=== PATIENT | male | born 1960 | race Caucasian/White ===

== ENCOUNTER 2016-11-26 16:03 | Emergency (ER) | payer BC, OTHER ==
[2016-11-26 16:20] VITALS: BP 161/67; PULSE 67; RESP 20; TEMP 98.3
== END 2016-11-26 16:50 | disposition home or self-care (01) ==
LOC: EC 16:03
DX: Z02.89 Encounter for other administrative examinations (principal)
CPT/HCPCS: 99281

== ENCOUNTER 2016-11-27 21:13 | Emergency (ER) | payer BC ==
--- NOTE | 2016-11-27 21:32 | ED ---
Psych HPI - General Chief Complaint: Psychiatric Symptoms Stated Complaint: suicidal Time Seen by Provider: 11/27/16 21:20 Source: patient, EMS Mode of arrival: EMS - History of Present Illness Initial Comments: This patient is a 56-year-old man who presents to be evaluated for suicidal ideation. The patient states that he has a previous history of alcoholism but had not been drinking for about 18 months. Over the past approximately 2-3 days she has been drinking 3/2 pints of alcohol per day. The patient states that his house was foreclosed on Sunday and that this triggered his drinking. He is more and more depressed and having thoughts of ending his life. The patient denies previous psychiatric history. She does have history of pancreatitis but states he has not been vomiting and has no abdominal pain. MD Complaint: suicidal ideation, feels depressed -: days(s) Associated Psychiatric Symptoms: depression, suicidal ideation Quality: getting worse Worsens With: alcohol Context: significant life stressor Associated Symptoms: denies other symptoms If Self Harm: admits thoughts of self harm - Related Data Home Medications Medication Instructions Recorded Confirmed Aspirin 81 mg PO DAILY 09/12/15 11/27/16 Hydrochlorothiazide [Hydrodiuril] 25 mg PO DAILY 09/12/15 11/27/16 Lisinopril [Zestril] 20 mg PO DAILY 09/12/15 11/27/16 Multivitamin/Iron/Folic Acid 1 tab PO DAILY 09/12/15 11/27/16 [Centrum Complete Multivit Tab] Atorvastatin [Lipitor] 20 mg PO DAILY 11/27/16 11/27/16 Pioglitazone HCl [Actos] 30 mg PO DAILY 11/27/16 11/27/16 metFORMIN HCL ER [Glucophage Xr] 1,000 mg PO BID 11/27/16 11/27/16 Allergies Allergy/AdvReac Type Severity Reaction Status Date / Time insulin detemir Allergy Anaphylaxis Verified 11/27/16 22:34 [From Levemir] Review of Systems ROS Statement: Those systems with pertinent positive or pertinent negative responses have been documented in the HPI. ROS Other: All systems not noted in ROS Statement are negative. Constitutional: Denies: fever, chills Respiratory: Denies: cough, dyspnea Cardiovascular: Denies: chest pain, palpitations Gastrointestinal: Denies: abdominal pain, nausea, vomiting Musculoskeletal: Denies: back pain Neurological: Denies: headache, weakness, numbness Psychiatric: Reports: depression, suicidal thoughts. Denies: auditory hallucinations, visual hallucinations, homicidal thoughts Past Medical History Past Medical History: Diabetes Mellitus, Hyperlipidemia, Hypertension Additional Past Medical History / Comment(s): kidney stones History of Any Multi-Drug Resistant Organisms: None Reported Past Surgical History: Cholecystectomy, Orthopedic Surgery Additional Past Surgical History / Comment(s): RIGHT KNEE REPLACED x3, LEFT ROTATOR CUFF, Past Anesthesia/Blood Transfusion Reactions: No Reported Reaction Past Psychological History: ADD/ADHD, Depression Additional Psychological History / Comment(s): ADHD Smoking Status: Current every day smoker Past Alcohol Use History: Daily Past Drug Use History: None Reported - Past Family History Father Family Medical History: Diabetes Mellitus Additional Family Medical History / Comment(s): CABG Mother Family Medical History: Diabetes Mellitus General Exam Limitations: no limitations General appearance: alert, in no apparent distress, appears intoxicated Head exam: Present: atraumatic, normocephalic Eye exam: Present: normal appearance. Absent: scleral icterus, conjunctival injection Respiratory exam: Present: wheezes (Trace expiratory wheeze). Absent: respiratory distress, rales, rhonchi, stridor, accessory muscle use, decreased breath sounds, prolonged expiratory Cardiovascular Exam: Present: regular rate, normal rhythm, normal heart sounds. Absent: systolic murmur, diastolic murmur, rubs, gallop GI/Abdominal exam: Present: soft. Absent: distended, tenderness, guarding, rebound, mass Extremities exam: Present: normal inspection Back exam: Present: normal inspection. Absent: CVA tenderness (R), CVA tenderness (L) Psychiatric exam: Present: depressed, suicidal ideation. Absent: agitated, anxious, flat affect, manic, homicidal ideation Skin exam: Present: warm, dry, intact, normal color. Absent: rash Course Vital Signs 11/27/16 11/28/16 21:14 01:01 Temperature 98 F 97.6 F Pulse Rate 111 H 85 Respiratory 16 18 Rate Blood Pressure 167/111 146/80 O2 Sat by Pulse 95 95 Oximetry Medical Decision Making - Medical Decision Making I have reassessed the patient now that he is sober and he is feeling much better than he was earlier. He does contract for safety. Patient has been evaluated by the behavioral health service and they have also discussed the case with the patient's ex-girlfriend who is going to also be checking on the patient. He is given outpatient resources for further care. He will definitely return should he be feeling any worse or if any symptoms recur. We discussed abstaining from alcohol. - Lab Data Lab Results 11/27/16 Range/Units 21:36 Urine Opiates Screen Not Detected (NotDetected) Ur Oxycodone Screen Not Detected (NotDetected) Urine Methadone Screen Not Detected (NotDetected) Ur Propoxyphene Screen Not Detected (NotDetected) Ur Barbiturates Screen Not Detected (NotDetected) U Tricyclic Antidepress Not Detected (NotDetected) Ur Phencyclidine Scrn Not Detected (NotDetected) Ur Amphetamines Screen Not Detected (NotDetected) U Methamphetamines Scrn Not Detected (NotDetected) U Benzodiazepines Scrn Not Detected (NotDetected) Urine Cocaine Screen Not Detected (NotDetected) U Marijuana (THC) Screen Not Detected (NotDetected) Disposition Clinical Impression: Alcohol intoxication, Adjustment reaction Disposition: HOME SELF-CARE Condition: Good Instructions: Mood Disorders (ED) Referrals: Ruel Christian MD [Primary Care Provider] - 1-2 days
[2016-11-27] MEDS ORDERED: LORazepam 1 MG TAB PO STA (21:35)
[2016-11-28 01:02] VITALS: RESP 18
[2016-11-28 08:08] VITALS: BP 137/77; PULSE 89; TEMP 97.9
== END 2016-11-28 08:07 | disposition home or self-care (01) ==
LOC: EC 21:13
DX: F43.20 Adjustment disorder, unspecified (principal); F10.129 Alcohol abuse with intoxication, unspecified; E11.9 Type 2 diabetes mellitus without complications; E78.5 Hyperlipidemia, unspecified; I10 Essential (primary) hypertension; Z79.84 Long term (current) use of oral hypoglycemic drugs; Z79.82 Long term (current) use of aspirin; Z79.899 Other long term (current) drug therapy; Z88.8 Allergy status to other drugs, medicaments and biological substances
CPT/HCPCS: 80306; 82075; 99284

== ENCOUNTER 2018-01-02 15:51 | Emergency (ER) | payer BC, OTHER ==
[2018-01-02] MEDS ORDERED: LABETALOL 5 MG/ML VIAL MDV IVP STA (17:06)
[2018-01-02] MEDS ORDERED: SODIUM CHLORIDE 0.9% 500 ML IV STA (17:06)
[2018-01-02] MEDS ORDERED: SODIUM CHLORIDE 0.9% 1,000 ML IV STA ×3 (17:06→18:26)
[2018-01-02 17:23] LABS: Basophils % (A) 0 %; Eosinophils # (A) 0.1 k/uL (0-0.7); Eosinophils % (A) 1 %; HCT 43.9 % (39.0-53.0); HGB 14.7 gm/dL (13.0-17.5); Lymphocytes # (A) 1.4 k/uL (1.0-4.8); Lymphocytes % (A) 19 %; MCH 31.6 pg (25.0-35.0); MCHC 33.6 g/dL (31.0-37.0); Mean Platelet Volume 7.7; Monocytes # (A) 0.5 k/uL (0-1.0); Monocytes % (A) 7 %; Neutrophils # (A) 5.4 k/uL (1.3-7.7); Neutrophils % (A) 72 %; Platelet Count 156 k/uL (150-450); RBC 4.67 m/uL (4.30-5.90); RDW 12.6 % (11.5-15.5); WBC 7.5 k/uL (3.8-10.6)
[2018-01-02 17:33] LABS: INR 1.1 (<1.2); Partial Thromboplastin Time 23.2 sec (22.0-30.0); Prothrombin Time 10.5 sec (9.0-12.0)
[2018-01-02 17:35] LABS: ALT 41 U/L (21-72); AST 48 U/L (17-59); Albumin 4.4 g/dL (3.5-5.0); Alkaline Phosphatase 39 U/L (38-126); Anion Gap 19 mmol/L; Blood Urea Nitrogen 21 mg/dL (9-20); Calcium 9.4 mg/dL (8.4-10.2); Carbon Dioxide 19 mmol/L (22-30); Chloride 102 mmol/L (98-107); Glucose 189 mg/dL (74-99); Magnesium 1.4 mg/dL (1.6-2.3); Phosphorus 3.6 mg/dL (2.5-4.5); Potassium 3.9 mmol/L (3.5-5.1); Sodium 140 mmol/L (137-145); Total Bilirubin 1.1 mg/dL (0.2-1.3); Total Protein 6.9 g/dL (6.3-8.2)
[2018-01-02 17:50] LABS: Creatine Kinase 429 U/L (55-170)
[2018-01-02 17:53] LABS: Alcohol 85 mg/dL
--- NOTE | 2018-01-02 17:56 | ED ---
General Adult HPI - General Chief complaint: Recheck/Abnormal Lab/Rx Stated complaint: High blood pressure Time Seen by Provider: 01/02/18 16:16 Source: patient, RN notes reviewed, old records reviewed Mode of arrival: ambulatory Limitations: no limitations - History of Present Illness Initial comments: This is a 57-year-old male to the ER for evaluation. This patient presents ER today for evaluation regarding elevated blood pressure elevated heart rate. Patient states he had prior issues in the past up-to-date medications secondary lost insurance. He denies any significant complaint, patient was transferred from [facility] Home Medications Medication Instructions Recorded Confirmed No Known Home Medications [No 01/02/18 01/02/18 Known Home Medications] Allergies Allergy/AdvReac Type Severity Reaction Status Date / Time insulin detemir Allergy Anaphylaxis Verified 01/02/18 16:28 [From [facility]] Review of Systems ROS Statement: Those systems with pertinent positive or pertinent negative responses have been documented in the HPI. ROS Other: All systems not noted in ROS Statement are negative. Past Medical History Past Medical History: Diabetes Mellitus, Hyperlipidemia, Hypertension Additional Past Medical History / Comment(s): kidney stones History of Any Multi-Drug Resistant Organisms: None Reported Past Surgical History: Cholecystectomy, Orthopedic Surgery Additional Past Surgical History / Comment(s): RIGHT KNEE REPLACED x3, LEFT ROTATOR CUFF, Past Anesthesia/Blood Transfusion Reactions: No Reported Reaction Past Psychological History: ADD/ADHD, Depression Smoking Status: Current every day smoker Past Alcohol Use History: Daily, Heavy Past Drug Use History: None Reported - Past Family History Father Family Medical History: Diabetes Mellitus Additional Family Medical History / Comment(s): CABG Mother Family Medical History: Diabetes Mellitus General Exam Limitations: no limitations General appearance: alert, in no apparent distress, anxious Head exam: Present: atraumatic, normocephalic, normal inspection Eye exam: Present: normal appearance, PERRL, EOMI. Absent: scleral icterus, conjunctival injection, periorbital swelling ENT exam: Present: normal exam, mucous membranes moist Neck exam: Present: normal inspection. Absent: tenderness, meningismus, lymphadenopathy Respiratory exam: Present: normal lung sounds bilaterally. Absent: respiratory distress, wheezes, rales, rhonchi, stridor Cardiovascular Exam: Present: tachycardia, irregular rhythm, normal heart sounds. Absent: systolic murmur, diastolic murmur, rubs, gallop, clicks GI/Abdominal exam: Present: soft, normal bowel sounds. Absent: distended, tenderness, guarding, rebound, rigid Extremities exam: Present: normal inspection, full ROM, normal capillary refill. Absent: tenderness, pedal edema, joint swelling, calf tenderness Back exam: Present: normal inspection Neurological exam: Present: alert, oriented X3, CN II-XII intact Psychiatric exam: Present: normal affect, normal mood Skin exam: Present: warm, dry, intact, normal color. Absent: rash Course Vital Signs 01/02/18 01/02/18 01/02/18 15:53 16:18 17:02 Temperature 99.6 F Pulse Rate 139 H 102 H 103 H Respiratory 22 18 18 Rate Blood Pressure 223/133 182/121 172/103 O2 Sat by Pulse 98 97 98 Oximetry 01/02/18 01/02/18 01/02/18 17:21 17:46 18:36 Temperature Pulse Rate 93 87 86 Respiratory 18 18 18 Rate Blood Pressure 166/100 160/100 176/106 O2 Sat by Pulse 98 98 97 Oximetry 01/02/18 19:07 Temperature 98.2 F Pulse Rate 85 Respiratory 16 Rate Blood Pressure 178/113 O2 Sat by Pulse 97 Oximetry - Reevaluation(s) Reevaluation #1: 01/02/18 19:10 Blood pressures improved, patient encouraged increased diet increase fluid intake EKG Findings - EKG Comments: EKG Findings:: EKG shows sinus tachycardia rate 128, IL 150, QRS 98, QTc 446 Medical Decision Making - Medical Decision Making 57 male the ER for evaluation, patient to be discharged home on blood pressure control, encouraged increased diet increased fluid intake - Lab Data Result diagrams: 01/02/18 16:46 01/02/18 16:46 Lab Results 01/02/18 01/02/18 01/02/18 Range/Units 16:46 16:46 16:46 WBC 7.5 (3.8-10.6) k/uL RBC 4.67 (4.30-5.90) m/uL Hgb 14.7 (13.0-17.5) gm/dL Hct 43.9 (39.0-53.0) % MCV 94.0 (80.0-100.0) fL MCH 31.6 (25.0-35.0) pg MCHC 33.6 (31.0-37.0) g/dL RDW 12.6 (11.5-15.5) % Plt Count 156 (150-450) k/uL Neutrophils % 72 % Lymphocytes % 19 % Monocytes % 7 % Eosinophils % 1 % Basophils % 0 % Neutrophils # 5.4 (1.3-7.7) k/uL Lymphocytes # 1.4 (1.0-4.8) k/uL Monocytes # 0.5 (0-1.0) k/uL Eosinophils # 0.1 (0-0.7) k/uL Basophils # 0.0 (0-0.2) k/uL PT (9.0-12.0) sec INR (<1.2) APTT (22.0-30.0) sec Sodium 140 (137-145) mmol/L Potassium 3.9 (3.5-5.1) mmol/L Chloride 102 (98-107) mmol/L Carbon Dioxide 19 L (22-30) mmol/L Anion Gap 19 mmol/L BUN 21 H (9-20) mg/dL Creatinine 0.80 (0.66-1.25) mg/dL Est GFR (CKD-EPI)AfAm >90 (>60 ml/min/1.73 sqM) Est GFR (CKD-EPI)NonAf >90 (>60 ml/min/1.73 sqM) Glucose 189 H (74-99) mg/dL Calcium 9.4 (8.4-10.2) mg/dL Phosphorus 3.6 (2.5-4.5) mg/dL Magnesium 1.4 L (1.6-2.3) mg/dL Total Bilirubin 1.1 (0.2-1.3) mg/dL AST 48 (17-59) U/L ALT 41 (21-72) U/L Alkaline Phosphatase 39 (38-126) U/L Total Creatine Kinase 429 H (55-170) U/L CK-MB (CK-2) 5.3 H* (0.0-2.4) ng/mL CK-MB (CK-2) Rel Index 1.2 Troponin I <0.012 (0.000-0.034) ng/mL Total Protein 6.9 (6.3-8.2) g/dL Albumin 4.4 (3.5-5.0) g/dL TSH 1.510 (0.465-4.680) mIU/L Serum Alcohol 85 mg/dL 01/02/18 Range/Units 16:46 WBC (3.8-10.6) k/uL RBC (4.30-5.90) m/uL Hgb (13.0-17.5) gm/dL Hct (39.0-53.0) % MCV (80.0-100.0) fL MCH (25.0-35.0) pg MCHC (31.0-37.0) g/dL RDW (11.5-15.5) % Plt Count (150-450) k/uL Neutrophils % % Lymphocytes % % Monocytes % % Eosinophils % % Basophils % % Neutrophils # (1.3-7.7) k/uL Lymphocytes # (1.0-4.8) k/uL Monocytes # (0-1.0) k/uL Eosinophils # (0-0.7) k/uL Basophils # (0-0.2) k/uL PT 10.5 (9.0-12.0) sec INR 1.1 (<1.2) APTT 23.2 (22.0-30.0) sec Sodium (137-145) mmol/L Potassium (3.5-5.1) mmol/L Chloride (98-107) mmol/L Carbon Dioxide (22-30) mmol/L Anion Gap mmol/L BUN (9-20) mg/dL Creatinine (0.66-1.25) mg/dL Est GFR (CKD-EPI)AfAm (>60 ml/min/1.73 sqM) Est GFR (CKD-EPI)NonAf (>60 ml/min/1.73 sqM) Glucose (74-99) mg/dL Calcium (8.4-10.2) mg/dL Phosphorus (2.5-4.5) mg/dL Magnesium (1.6-2.3) mg/dL Total Bilirubin (0.2-1.3) mg/dL AST (17-59) U/L ALT (21-72) U/L Alkaline Phosphatase (38-126) U/L Total Creatine Kinase (55-170) U/L CK-MB (CK-2) (0.0-2.4) ng/mL CK-MB (CK-2) Rel Index Troponin I (0.000-0.034) ng/mL Total Protein (6.3-8.2) g/dL Albumin (3.5-5.0) g/dL TSH (0.465-4.680) mIU/L Serum Alcohol mg/dL Disposition Clinical Impression: Hypertension Disposition: HOME SELF-CARE Condition: Good Instructions: Hypertension (ED) Is patient prescribed a controlled substance at d/c from ED?: No Referrals: None,Stated [Primary Care Provider] - 1-2 days
[2018-01-02 18:03] LABS: Troponin I <0.012 ng/mL (0.000-0.034)
[2018-01-02 18:06] LABS: Creatine Kinase MB 5.3 ng/mL (0.0-2.4)
[2018-01-02] MEDS ORDERED: MAGNESIUM OXIDE 400 MG TAB PO STA (18:25)
[2018-01-02 19:09] VITALS: RESP 16; TEMP 98.2
[2018-01-02 19:35] LABS: Appearance,Urine Clear (Clear); Bilirubin,Urine Negative (Negative); Blood,Urine Negative (Negative); Color,Urine Yellow; Glucose,Urine (UA) Trace (Negative); Ketones,Urine 1+ (Negative); Leukocyte Esterase,Urine Negative (Negative); Nitrite,Urine Negative (Negative); Protein,Urine Trace (Negative); Specific Gravity,Urine 1.021 (1.001-1.035); Urobilinogen,Urine <2.0 mg/dL (<2.0)
[2018-01-02 19:47] VITALS: BP 174/111; PULSE 87
== END 2018-01-02 19:54 | disposition home or self-care (01) ==
LOC: EC 15:51
DX: I10 Essential (primary) hypertension (principal); F17.200 Nicotine dependence, unspecified, uncomplicated; Z88.8 Allergy status to other drugs, medicaments and biological substances
CPT/HCPCS: 36415; 80053; 80320; 81003; 82550; 82553; 83735; 84100; 84443; 84484; 85025; 85610; 85730; 87086; 93005; 96361; 96374; 99284

== ENCOUNTER 2019-07-19 11:56 | Inpatient (IN) | payer OTHER ==
[2019-07-19] MEDS ORDERED: ASPIRIN 81 MG PO STA (12:11)
[2019-07-19] MEDS ORDERED: ATORVASTATIN 80 MG TAB PO STA (12:20)
[2019-07-19] MEDS ORDERED: NITROGLYCERIN SL TABS 0.4 MG TAB SUBLINGUAL STA (12:20)
--- NOTE | 2019-07-19 12:24 | ED ---
General Adult HPI - General Chief complaint: Chest Pain Stated complaint: intermittent chest pain Time Seen by Provider: 07/19/19 12:07 Source: patient, RN notes reviewed, old records reviewed Mode of arrival: wheelchair Limitations: no limitations - History of Present Illness Initial comments: 59-year-old male presents for evaluation of chest pain. Pain is been present for 2-3 days, intermittent. Describes it as a bilateral upper chest pain which is squeezing in nature. Does radiate to his shoulders. No arm pain. No nausea vomiting. No diaphoresis. No known history of coronary artery disease. Patient is a nondiabetic, current smoker. His pain is minimal at the time my evaluation. Significantly improved. Patient states denies any abdominal pain. Denies any extremity pain - Related Data Home Medications Medication Instructions Recorded Confirmed No Known Home Medications 07/19/19 07/19/19 Allergies Allergy/AdvReac Type Severity Reaction Status Date / Time insulin detemir Allergy Anaphylaxis Verified 07/19/19 12:19 [From Levemir] Review of Systems ROS Statement: Those systems with pertinent positive or pertinent negative responses have been documented in the HPI. ROS Other: All systems not noted in ROS Statement are negative. Past Medical History Past Medical History: Diabetes Mellitus, Hyperlipidemia, Hypertension Additional Past Medical History / Comment(s): kidney stones History of Any Multi-Drug Resistant Organisms: None Reported Past Surgical History: Cholecystectomy, Orthopedic Surgery Additional Past Surgical History / Comment(s): RIGHT KNEE REPLACED x3, LEFT ROTATOR CUFF, Past Anesthesia/Blood Transfusion Reactions: No Reported Reaction Past Psychological History: ADD/ADHD, Depression Smoking Status: Current every day smoker Past Alcohol Use History: Occasional Past Drug Use History: None Reported - Past Family History Father Family Medical History: Diabetes Mellitus Additional Family Medical History / Comment(s): CABG Mother Family Medical History: Diabetes Mellitus General Exam Limitations: no limitations General appearance: alert, in no apparent distress Head exam: Present: atraumatic, normocephalic Eye exam: Present: normal appearance, PERRL ENT exam: Present: normal exam Neck exam: Present: normal inspection. Absent: tenderness, meningismus Respiratory exam: Present: normal lung sounds bilaterally. Absent: respiratory distress, wheezes Cardiovascular Exam: Present: regular rate, normal rhythm GI/Abdominal exam: Present: soft. Absent: distended, tenderness, guarding Extremities exam: Present: normal inspection, normal capillary refill. Absent: pedal edema Neurological exam: Present: alert, oriented X3, CN II-XII intact. Absent: motor sensory deficit Psychiatric exam: Present: normal affect, normal mood Skin exam: Present: warm, diaphoretic Course Vital Signs 07/19/19 12:02 Temperature 98.5 F Pulse Rate 63 Respiratory 18 Rate Blood Pressure 172/105 O2 Sat by Pulse 99 Oximetry - Reevaluation(s) Reevaluation #1: 07/19/19 12:15 Cardiology paged regarding EKG abnormalities, concerning abnormalities although patient's symptoms have been present for 2 days and is currently chest pain- free. Reevaluation #2: 07/19/19 12:[address] Jack, will urgently evaluate patient in the emergency department, requests urgent Echo. EKG Findings - EKG Comments: EKG Findings:: EKG: Obtained at 1209, normal sinus rhythm, LVH, ST segment elevation across the precordial leads no reciprocal ST segment depression, there is biphasic T waves in V2 and V3 rate of 60, ID interval 174, QRS duration 108, QTC 418. EKG repeated at 1217, sinus bradycardia, unchanged precordial abnormalities, rate of 56, ID interval 178, QRS duration 108, QTC 407 Medical Decision Making - Medical Decision Making 59-year-old male with history concerning for acute coronary syndrome. An EKG with wound syndrome and ST segment changes throughout the precordial leads. Laboratory studies are obtained, chest x-ray and stat echo I obtained these results are pending. Patient is evaluated by cardiology in the emergency department and will be taken urgently to the [facility]. He is given aspirin, nitroglycerin, and heparin infusion as well as Lipitor the emergency department. Admitted to monitored bed. Case is discussed with both cardiology and admitting physician. Critical Care Time Critical Care Time: Yes Total Critical Care Time: 35 Disposition Clinical Impression: Acute non-ST elevation myocardial infarction (NSTEMI) Disposition: ADMITTED IP TO THIS [facility] Condition: Serious Is patient prescribed a controlled substance at d/c from ED?: No Referrals: None,Stated [Primary Care Provider] - 1-2 days Decision to Admit Reason: Admit from EC Decision Date: 07/19/19 Decision Time: 12:45
[2019-07-19] MEDS ORDERED: HEPARIN SODIUM,PORCINE 5,000 UNIT/ML 1 ML VIAL IV STA ×2 (12:30→22:26)
[2019-07-19] MEDS ORDERED: NITROGLYCERIN OINT 1 INCH/GM PACKET TOPICAL STA (12:37)
[2019-07-19] MEDS ORDERED: HEPARIN SODIUM,PORCINE 5,000 UNIT/ML 1 ML VIAL IV PRN (12:41)
[2019-07-19] MEDS ORDERED: NALOXONE 0.4 MG/ML 1 ML VIAL IV PRN (12:41)
[2019-07-19 12:51] LABS: ALT 18 U/L (21-72); AST 21 U/L (17-59); African American GFR (CKD) >90 (>60 ml/min/1.73 sqM); Albumin 4.2 g/dL (3.5-5.0); Alkaline Phosphatase 37 U/L (38-126); Anion Gap 8 mmol/L; Blood Urea Nitrogen 17 mg/dL (9-20); Calcium 9.8 mg/dL (8.4-10.2); Carbon Dioxide 27 mmol/L (22-30); Chloride 102 mmol/L (98-107); Glucose 242 mg/dL (74-99); Magnesium 1.6 mg/dL (1.6-2.3); Non-African American GFR(CKD) >90 (>60 ml/min/1.73 sqM); Sodium 137 mmol/L (137-145); Total Bilirubin 0.4 mg/dL (0.2-1.3); Total Protein 7.1 g/dL (6.3-8.2)
[2019-07-19 12:53] LABS: Basophils % (A) 0 %; Eosinophils # (A) 0.1 k/uL (0-0.7); Eosinophils % (A) 1 %; HCT 43.5 % (39.0-53.0); HGB 14.9 gm/dL (13.0-17.5); Lymphocytes # (A) 0.9 k/uL (1.0-4.8); Lymphocytes % (A) 11 %; MCH 32.7 pg (25.0-35.0); MCHC 34.2 g/dL (31.0-37.0); MCV 95.8 fL (80.0-100.0); Monocytes # (A) 0.3 k/uL (0-1.0); Monocytes % (A) 4 %; Neutrophils # (A) 6.5 k/uL (1.3-7.7); Neutrophils % (A) 83 %; Platelet Count 184 k/uL (150-450); RBC 4.54 m/uL (4.30-5.90); RDW 11.9 % (11.5-15.5); WBC 7.9 k/uL (3.8-10.6)
[2019-07-19] MEDS: HEPARIN SOD,PORK IN 0.45% NACL 25,000 UNIT in 0.45% NACL 1 250ML.BAG IV SCH (12:53)
[2019-07-19 12:55] LABS: INR 0.9 (<1.2); Partial Thromboplastin Time 24.1 sec (22.0-30.0); Prothrombin Time 10.1 sec (9.0-12.0)
--- NOTE | 2019-07-19 13:02 | XR ---
EXAMINATION TYPE: XR chest 1V portable DATE OF EXAM: 07/19/2019 HISTORY: chest pain. REFERENCE: Previous study dated 09/13/2015. FINDINGS: The lungs are clear. Pleural spaces are clear. The heart is mildly enlarged. IMPRESSION: MILD CARDIOMEGALY.
--- NOTE | 2019-07-19 14:34 | ECHOF ---
Referral Reason:CP MEASUREMENTS -------- HEIGHT: 180.3 cm WEIGHT: 97.5 kg BP: IVSd: 1.3 cm (0.6 - 1.1) LVIDd: 4.6 cm (3.9 - 5.3) LVPWd: 1.5 cm (0.6 - 1.1) IVSs: 2.8 cm LVIDs: 2.1 cm LVPWs: 1.9 cm LAESV Index (A-L): 26.10 ml/m Ao Diam: 3.0 cm (2.0 - 3.7) AV Cusp: 1.3 cm (1.5 - 2.6) LA Diam: 3.0 cm (2.7 - 3.8) MV EXCURSION: 14.703 mm (> 18.000) MV EF SLOPE: 114 mm/s (70 - 150) EPSS: 0.4 cm MV E Lebron: 1.03 m/s MV DecT: 224 ms MV A Lebron: 1.15 m/s MV E/A Ratio: 0.89 AR PHT: 363 ms RAP: 15.00 mmHg RVSP: 38.53 mmHg TAPSE: 33.41 mm FINDINGS -------- Sinus rhythm. This was a technically good study. The left ventricular size is normal. There is moderate concentric left ventricular hypertrophy. O verall left ventricular systolic function is normal with, an EF between 55 - 60 %. The diastolic fi lling pattern is normal for the age of the patient 12.39. The right ventricle is normal in size. The right ventricular systolic function is normal. The left atrial size is normal. The right atrial size is normal. Aortic valve is trileaflet and is mildly thickened. Trace amount of aortic regurgitation. The mitral valve is normal. The mitral valve leaflets are mildly thickened. Mild mitral regurgita tion is present. The tricuspid valve appears structurally normal. Mild tricuspid regurgitation present. There is m ild pulmonary hypertension. There is no pulmonic regurgitation present. The aortic root size is normal. The inferior vena cava is mildly dilated. There is no pericardial effusion. CONCLUSIONS -------- 1. Sinus rhythm. 2. This was a technically good study. 3. The left ventricular size is normal. 4. There is moderate concentric left ventricular hypertrophy. 5. Overall left ventricular systolic function is normal with, an EF between 55 - 60 %. 6. The diastolic filling pattern is normal for the age of the patient 12.39 7. The right ventricle is normal in size. 8. The right ventricular systolic function is normal. 9. The left atrial size is normal. 10. The right atrial size is normal. 11. Aortic valve is trileaflet and is mildly thickened. 12. Trace amount of aortic regurgitation. 13. The mitral valve is normal. 14. The mitral valve leaflets are mildly thickened. 15. Mild mitral regurgitation is present. 16. The tricuspid valve appears structurally normal. 17. Mild tricuspid regurgitation present. 18. There is mild pulmonary hypertension. 19. There is no pulmonic regurgitation present. 20. The aortic root size is normal. 21. The inferior vena cava is mildly dilated. 22. There is no pericardial effusion. FLASK MAKER: Lucie Jaquez RDCS
[2019-07-19] MEDS ORDERED: Potassium Replacement Protocol 1 EACH MISC MISCELLANE PRN (16:56)
[2019-07-19] MEDS ORDERED: Magnesium Replacement Protocol 1 EACH MISC MISCELLANE PRN (16:56)
--- NOTE | 2019-07-19 17:07 | P.HPIM ---
History of Present Illness H&P Date: 07/19/19 Chief Complaint: Chest pain This is a 59-year-old male with past medical history significant for history of type 2 diabetes and essential hypertension not on any medication or presented to the emergency room with chest pain. Patient said that his pain started a week ago and he describe it as a tightness feeling across his chest. 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 He then noted that he is also having the pain at home while resting. He said at the worst the pain is 6-7 out of 10 in severity. This was not associated with shortness of breath or diaphoresis. There was no radiation to his arm or neck. Today, patient said that his pain was more persistent and he decided to come to the emergency room for further evaluation. In the emergency room, 12-lead EKG showed nonspecific ST segment changes. Initial troponin was elevated at 0.219. Patient was hemodynamically stable. Chest x-ray showed cardiomegaly but no acute findings. Patient was seen and evaluated by cardiology and plan is to take him to the [facility]. He was started on IV heparin was given a full dose aspirin and 80 mg of Lipitor. Patient is chest pain-free upon my evaluation. He denies any cardiac history. He is a current every day smoker and smokes approximately one pack per day. He denies any premature coronary artery disease history in his family. Review of Systems Review of system: 14 points review of systems were obtained and were negative except to what were mentioned in the HPI. Past Medical History Past Medical History: Diabetes Mellitus, Hyperlipidemia, Hypertension Additional Past Medical History / Comment(s): kidney stones History of Any Multi-Drug Resistant Organisms: None Reported Past Surgical History: Cholecystectomy, Orthopedic Surgery Additional Past Surgical History / Comment(s): RIGHT KNEE REPLACED x3, LEFT ROTATOR CUFF, Past Anesthesia/Blood Transfusion Reactions: No Reported Reaction Past Psychological History: ADD/ADHD, Depression Additional Psychological History / Comment(s): ADHD Smoking Status: Current every day smoker Past Alcohol Use History: Occasional Past Drug Use History: None Reported - Past Family History Father Family Medical History: Diabetes Mellitus Additional Family Medical History / Comment(s): CABG Mother Family Medical History: Diabetes Mellitus Medications and Allergies Home Medications Medication Instructions Recorded Confirmed Type No Known Home Medications 11/09/19 11/09/19 History Allergies Allergy/AdvReac Type Severity Reaction Status Date / Time insulin detemir Allergy Anaphylaxis Verified 07/19/19 12:19 [From Levemir] Physical Exam Vitals: Vital Signs Temp Pulse Pulse Resp BP BP Pulse Ox 07/19/19 16:00 97.8 F 61 17 140/86 100 07/19/19 14:32 58 L 16 146/97 100 07/19/19 13:00 53 L 163/104 100 07/19/19 12:30 63 9 L 172/105 99 07/19/19 12:06 99 07/19/19 12:02 98.5 F 63 18 172/105 99 Intake and Output 07/19/19 07/19/19 07/19/19 06:59 14:59 22:59 Intake Total 27 Balance 27 Intake: Intake, IV Titration 27 Amount Heparin Sod,Pork in 0.45% 27 NaCl 25,000 unit In 0.45 % NaCl 1 250ml.bag @ 10. 254 UNITS/KG/HR 10 mls/hr IV .Q24H [facility] Rx#: [id number] Other: Weight 97.522 kg General: The patient is awake and alert, in no distress Eye: there is normal conjunctiva bilaterally. Neck: The neck is supple, there is no JVD. Cardiovascular: Normal S1-S2, no S3-S4, no murmurs. Respiratory: Lungs clear to auscultation bilaterally Gastrointestinal: Abdomen is soft, nontender Musculoskeletal: There is no pedal edema. Neurological:. Speech is normal. Skin: Skin is warm and dry Results CBC & Chem 7: 07/19/19 12:10 07/19/19 12:10 Labs: Abnormal Lab Results - Last 24 Hours (Table) 07/19/19 07/19/19 07/19/19 Range/Units 12:10 12:10 12:10 Lymphocytes # 0.9 L (1.0-4.8) k/uL Glucose 242 H (74-99) mg/dL ALT 18 L (21-72) U/L Alkaline Phosphatase 37 L (38-126) U/L Troponin I 0.219 H* (0.000-0.034) ng/mL Thrombosis Risk Factor Assmnt - Choose All That Apply Any of the Below Risk Factors Present?: Yes Other Risk Factors: Yes Each Risk Factor Represents 2 Points: Age 61-74 years Thrombosis Risk Factor Assessment Total Risk Factor Score: 2 Thrombosis Risk Factor Assessment Level: Low Risk Assessment and Plan Assessment: 1. Non-ST elevation myocardial infarction: Started on IV heparin drip. Given full dose of aspirin and Lipitor 80 mg. Seen and evaluated by cardiology. Plan for left heart cath this evening. Echocardiogram showed preserved ejection fraction with no significant wall motion or valvular abnormalities. Patient is slightly bradycardic so we'll start low-dose metoprolol tartrate 12.5 mg twice daily and continue ekg monitor. Appreciate cardiology recommendations. 2. History of type 2 diabetes not on any medication. Blood glucose on presentation to 40. I would continue sliding scale insulin and obtain A1c in the morning 3. Hyperlipidemia, check fasting lipid profile. Start Lipitor 80 mg at bedtime for now 4. History of essential hypertension, patient stopped taking all of his medicat ions secondary to lack of insurance. I will start lisinopril 10 mg daily starting tomorrow morning and continue to monitor closely. 5. Tobacco abuse: Counseled extensively to quit. Nicotine patch ordered. Today, I reviewed his medication list and lab work results. Continue IV fluid hydration with normal saline at the 100 mL per hour. Awaiting left heart catheterization. Patient was updated about his current condition. All of his questions answered to his satisfaction. Repeat lab work in the morning.
[2019-07-19] MEDS: INSULIN ASPART (NovoLOG) 100 UNIT/ML VIAL SQ SCH ×2 (17:13→22:34)
[2019-07-19] MEDS: SODIUM CHLORIDE 0.9% 1,000 ML IV SCH (17:13)
[2019-07-19] MEDS ORDERED: IV FLUID CONTINUATION 500 ML IV ONE (17:18)
[2019-07-19] MEDS ORDERED: LIDOCAINE 1% INJ 10MG/ML (20 ML MDV) ONE ×2 (17:27→18:21)
[2019-07-19] MEDS ORDERED: fentaNYL (PF) 50 MCG/ML 2 ML AMP ONE (17:27)
[2019-07-19] MEDS ORDERED: fentaNYL (PF) 50 MCG/ML 2 ML AMP IV ONE (17:46)
[2019-07-19] MEDS: MIDAZOLAM 2 MG/2 ML VIAL IV ONE ×2 (17:46→18:32)
[2019-07-19] MEDS: LIDOCAINE 1% INJ 10MG/ML (20 ML MDV) SQ ONE ×2 (17:48→18:21)
[2019-07-19] MEDS ORDERED: HYDROmorphone 1 MG/ML 1 ML SYRINGE ONE ×2 (18:19→20:01)
[2019-07-19] MEDS: HYDROmorphone 1 MG/ML 1 ML SYRINGE IVP ONE ×3 (18:20→19:26)
[2019-07-19] MEDS ORDERED: HYDROmorphone 1 MG/ML 1 ML SYRINGE IVP ONE ×2 (18:20→20:06)
[2019-07-19] MEDS ORDERED: BIVALIRUDIN BOLUS 250 MG/50 ML IV ONE (18:29)
[2019-07-19] MEDS ORDERED: BIVALIRUDIN 250 MG in SODIUM CHLORIDE 0.9% 36 ML IV ONE (18:30)
[2019-07-19] MEDS ORDERED: IOPAMIDOL-370 125ML BTL INJ ONE (18:32)
[2019-07-19] MEDS ORDERED: BIVALIRUDIN 250 MG in SODIUM CHLORIDE 0.9% 50 ML IV ONE (19:10)
[2019-07-19] MEDS ORDERED: NITROGLYCERIN 1000MCG/10ML SYRINGE INTRACORON ONE ×2 (19:11→19:13)
[2019-07-19] MEDS ORDERED: PRASUGREL 10 MG TAB ONE (19:12)
[2019-07-19] MEDS ORDERED: TIROFIBAN BOLUS 12.5MG/250 ML BAG IV ONE ×2 (19:18→19:26)
[2019-07-19] MEDS ORDERED: TIROFIBAN 12.5 MG IV ONE (19:28)
[2019-07-19] MEDS ORDERED: NS IV ONE (19:28)
[2019-07-19] MEDS ORDERED: IOPAMIDOL-370 100ML BTL INJ ONE (19:32)
[2019-07-19] MEDS ORDERED: PRASUGREL 10 MG TAB PO ONE (19:35)
--- NOTE | 2019-07-19 19:38 | CC ---
CARDIAC CATHETERIZATION REPORT INDICATION: Non ST-segment elevation CO. PROCEDURE NOTE: After obtaining informed consent, left heart catheterization and coronary angiogram are performed via the right femoral artery using standard Reji catheter. The patient tolerated the procedure well without any obvious immediate complications. A femoral angiogram was performed. The patient received moderate conscious sedation. Total sedation time was 18 minutes. FINDINGS: HEMODYNAMICS: Left ventricular end-diastolic pressure is 14-16 mm. There is no significant gradient across the aortic valve. LEFT VENTRICULOGRAM: Left ventriculogram is not performed. ANGIOGRAPHIC DATA: Left main coronary artery appears calcified but is free of significant stenosis. Divides into left anterior descending coronary artery and circumflex coronary artery. LAD shows a focal 95% stenosis just at the origin of the large diagonal branch. Circumflex coronary artery shows mild nonobstructive disease. Right coronary artery is a large dominant vessel that shows mild nonobstructive coronary artery disease. CONCLUSIONS: 95% focal stenosis involving the mid LAD just after the origin of a large diagonal branch. PLAN: Patient will undergo angioplasty with stent placement of the same. MMODL / IJN: [id number] /
[2019-07-19] MEDS ORDERED: niCARdipine 25 MG/10 ML VIAL ONE (20:04)
[2019-07-19] MEDS ORDERED: niCARdipine Syringe (1,000 mcg/10 mL) INTRACORON ONE (20:06)
[2019-07-19] MEDS ORDERED: SODIUM CHLORIDE 0.9% 1,000 ML IV ONE (20:07)
[2019-07-19] MEDS ORDERED: NITROGLYCERIN-D5W PMX 50 MG in DEXTROSE/WATER 1 250ML.BAG IV ONE (20:13)
[2019-07-19] MEDS ORDERED: NITROGLYCERIN SL TABS 0.4 MG TAB SUBLINGUAL ONE ×2 (20:26→20:28)
[2019-07-19] MEDS ORDERED: METOPROLOL TARTRATE 25 MG TAB PO SCH (21:00)
[2019-07-19 21:09] LABS: Glucose,Whole Blood 127 mg/dL (75-99)
[2019-07-19] MEDS: NICOTINE 21MG/24HR PATCH TRANSDERM SCH (22:34)
[2019-07-19] MEDS: ATORVASTATIN 80 MG TAB PO SCH (22:43)
[2019-07-19] MEDS: MORPHINE SULFATE 2 MG/ML SYRINGE IVP PRN (22:46)
[2019-07-20] MEDS: METOPROLOL TARTRATE 12.5 MG TAB PO SCH ×3 (02:16→20:35)
[2019-07-20] MEDS: MORPHINE SULFATE 2 MG/ML SYRINGE IVP PRN (02:17)
[2019-07-20] MEDS: SODIUM CHLORIDE 0.9% 1,000 ML IV SCH ×2 (02:20→10:24)
[2019-07-20] MEDS ORDERED: HYDROmorphone 0.5 MG/0.5 ML SYRINGE IVP PRN (02:38)
[2019-07-20 06:03] LABS: Basophils # (A) 0.1 k/uL (0-0.2); Basophils % (A) 1 %; Eosinophils # (A) 0.2 k/uL (0-0.7); Eosinophils % (A) 2 %; HGB 13.1 gm/dL (13.0-17.5); Lymphocytes # (A) 0.9 k/uL (1.0-4.8); Lymphocytes % (A) 12 %; MCH 33.3 pg (25.0-35.0); MCHC 35.5 g/dL (31.0-37.0); MCV 93.7 fL (80.0-100.0); Mean Platelet Volume 6.3; Monocytes # (A) 0.5 k/uL (0-1.0); Monocytes % (A) 6 %; Neutrophils % (A) 78 %; Platelet Count 169 k/uL (150-450); RBC 3.95 m/uL (4.30-5.90); RDW 11.8 % (11.5-15.5); WBC 7.7 k/uL (3.8-10.6)
[2019-07-20 06:13] LABS: African American GFR (CKD) >90 (>60 ml/min/1.73 sqM); Anion Gap 5 mmol/L; Blood Urea Nitrogen 8 mg/dL (9-20); Calcium 8.5 mg/dL (8.4-10.2); Carbon Dioxide 26 mmol/L (22-30); Chloride 105 mmol/L (98-107); Cholesterol 140 mg/dL (<200); HDL Cholesterol 32 mg/dL (40-60); LDL Cholesterol,Calculated 84 mg/dL (0-99); Magnesium 1.6 mg/dL (1.6-2.3); Non-African American GFR(CKD) >90 (>60 ml/min/1.73 sqM); Potassium 3.9 mmol/L (3.5-5.1); Sodium 136 mmol/L (137-145); Triglycerides 122 mg/dL (<150)
[2019-07-20 06:14] LABS: Glucose 184 mg/dL (74-99)
[2019-07-20] MEDS: INSULIN ASPART (NovoLOG) 100 UNIT/ML VIAL SQ SCH ×5 (07:06→20:35)
[2019-07-20] MEDS ORDERED: TIROFIBAN 12.5MG-250ML NS 250 ML IV SCH (07:45)
[2019-07-20] MEDS ORDERED: LIDOCAINE 1% INJ 10MG/ML (20 ML MDV) ONE (07:52)
--- NOTE | 2019-07-20 08:06 | PTCA ---
PERCUTANEOUSTRANS CORORONARY ANGIOGRAPHY DATE OF SERVICE: 07/19/2019. PROCEDURE PERFORMED: 1. PTCA and stenting of a complex bifurcation LAD and diagonal lesion with provisional stenting of diagonal and a drug-eluting stent in the LAD. 2. Manual aspiration thrombectomy of LAD and diagonal. ANESTHESIA: Moderate conscious sedation time was 120 minutes. Patient was administered Versed. Oxygen saturation, hemodynamics and EKG were monitored closely. He also received Dilaudid multiple doses of 0.5 mg. CLINICAL INFORMATION: Mr. Garrett Penny is a 59-year-old gentleman who presented to the hospital with non ST elevation IA, was seen and evaluated by Dr. Jack who performed a cardiac cath today. Study revealed patient had precordial ST and T-wave abnormality with J-point elevation in leads V5 and V6. Cardiac cath revealed a 95% stenosis in the mid LAD just after the diagonal branch. The diagonal branch had about a 30% narrowing but was a large diagonal. The LAD had sluggish flow. He was advised intervention. I discussed with the patient, explained to him that this will be a bifurcation lesion with a relatively higher risk of in-stent thrombosis as well as restenoses down the road. I also explained to him the success rate would be difficult. After due discussion and with full agreement, I proceeded with the procedure. PROCEDURE NOTE: The existing 6-Paraguayan introducer in the right femoral artery was exchanged over a wire for a 7-Paraguayan introducer. I used a 4.0 curved XB LAD guide catheter of 7- [place] caliber to cannulate the left main. A run-through wire was used and I cross the LAD and kept the wire distally in the LAD. A long 300 cm whisper wire was used to cross the diagonal lesion. I then performed a PTCA with a 3.0 caliber 12 mm NC Trek balloon of the LAD. I then deployed a 15 mm long 3.25 caliber Xience stent in the LAD. Following this, I used a 3.5 8 mm long NC Trek balloon and did proximal vessel optimization within the stent in the proximal half of the stent with this NC trek 3.5 caliber balloon of 8 mm length at 12-13 atmospheres. I then performed a wire exchange. I took the LAD wire and advance it into the distal aspect to the diagonal vessel uneventfully. I was able to retrieve the diagonal wire that was jailed and advance that into the LAD. After performing the wire exchange, I noted that the diagonal at its origin had compromise and LAD also seemed to have a hazy area at its proximal end of the stenosis. The patient received Angiomax bolus and infusion as per protocol. I then advanced 2 balloons over these 2 wires. In the LAD, I placed a 12 mm 3.25 caliber NC Trek balloon and in the diagonal I placed a 2.75 caliber 12 mm long NC Trek balloon. After positioning these balloons in a very optimal location and checking in both QATARI and GAMBOA projections, I performed a kissing balloon inflation. Following the kissing balloon inflation, as I took the balloons out, I noted that there was thrombus over the balloon and then I when I took a picture both LAD and diagonal had significant amount of thrombus burden and patient had some chest pain with ST elevation. At this point, I decided to switch him from Angiomax to heparin and Aggrastat. I therefore gave him Tirofiban bolus and drip. I gave him 5000 units of heparin and performed an ACT. Initial ACT was 289 and subsequent ACT was out of range. Repeat ACT was 210. There was a lot of variability in the ACT numbers. However, patient received additional heparin a total of 9500 units of heparin was given, which is almost 90 units/kg. After repeat angiogram, there was significant amount of thrombus burden with thrombus traveling distally. The patient had about 5/10 chest discomfort but remained hemodynamically stable. After this, I made a decision to perform manual aspiration thrombectomy and initially tried the export catheter, which was bulky then switched over to an [place] manual aspiration thrombectomy catheter. With this I performed thrombectomy of both the LAD as well as the diagonal in which there was significant amount of thrombus burden. Following this, there was a significant improvement in angiographic appearance and flow and patient also improved remarkably with almost complete resolution of his chest pain. Multiple angiograms revealed a TYSHAWN-3 flow but the distal end of the LAD at the apex there was a cutoff suggesting that the thrombus may have occluded the distal LAD at the apical portion and also the distal diagonal had an occlusion. Multiple angiograms were obtained and another ACT revealed that it was only 227. I gave additional 2500 units of heparin. The sheath was sutured. Results were discussed with the patient and I spoke to the family who was waiting in the ICU in great detail and regarding repeat angiography in AM. Angiographically the result was excellent, but there was significant thrombus burden requiring manual aspiration thrombectomy and also the distal portions of the vessel, maybe the distal 1/6 of the vessels were occluded. The patient's chest pain was about 1/[address] elevation also improved remarkably. The patient was sent to the ICU in a hemodynamically stable condition with the sheath sutured in. His ACT will be monitored through the night and I will perform a repeat injection in the morning to make sure the vessel is patent and this was explained to the patient and family members. Prognosis remains guarded. MMODL / IJN: [id number] / MTDD
[2019-07-20] MEDS ORDERED: NITROGLYCERIN SL TABS 0.4 MG TAB SUBLINGUAL ONE ×2 (08:17→08:20)
[2019-07-20] MEDS ORDERED: MIDAZOLAM 2 MG/2 ML VIAL IVP ONE ×2 (08:18→08:30)
[2019-07-20] MEDS ORDERED: LIDOCAINE 1% INJ 10MG/ML (20 ML MDV) SQ ONE ×2 (08:20→08:34)
[2019-07-20] MEDS ORDERED: IV FLUID CONTINUATION 1,000 ML IV ONE (08:21)
[2019-07-20] MEDS ORDERED: ceFAZolin 1,000 MG VIAL IV ONE (08:25)
[2019-07-20] MEDS ORDERED: NITROGLYCERIN 1000MCG/10ML SYRINGE INTRACORON ONE ×2 (08:28→08:30)
[2019-07-20] MEDS ORDERED: HYDROmorphone 1 MG/ML 1 ML SYRINGE ONE (08:31)
[2019-07-20] MEDS ORDERED: HYDROmorphone 1 MG/ML 1 ML SYRINGE IVP ONE (08:34)
[2019-07-20] MEDS ORDERED: IOPAMIDOL-370 100ML BTL INJ ONE (08:35)
[2019-07-20] MEDS ORDERED: ASPIRIN 81 MG ONE (08:40)
[2019-07-20] MEDS ORDERED: TICAGRELOR 90 MG TAB ONE (08:41)
[2019-07-20] MEDS ORDERED: ASPIRIN 81 MG PO ONE (08:42)
[2019-07-20] MEDS ORDERED: TICAGRELOR 90 MG TAB PO ONE (08:42)
[2019-07-20] MEDS ORDERED: LOSARTAN 50 MG TAB PO SCH (09:15)
--- NOTE | 2019-07-20 09:18 | CONS ---
CONSULTATION DATE OF SERVICE: 07/19/2019 CHIEF COMPLAINT: Chest pain. HISTORY OF PRESENT ILLNESS: Garrett is a 59-year-old gentleman with no significant past medical history who presented to [facility] Emergency Room with precardial chest pain. He describes it as a chest pressure, moderate to severe intensity that radiated to his back and down the left arm. EKG on him reveals sinus rhythm with T-wave inversions in the precordial leads suggesting of significant lesion in the proximal LAD. The emergency room doctor, Dr. Wadsworth called me and I went and saw the patient in the ER and because of my concern, his symptoms, EKG changes and the possibility that he may have a tight lesion in the proximal LAD, I advised the patient to undergo emergent cardiac catheterization. The patient was started on aspirin, heparin, and I advised the ER to start him on nitrates. PAST MEDICAL HISTORY: Was negative for hypertension, diabetes and dyslipidemia. MEDICATIONS: None. ALLERGIES: INSULIN. FAMILY HISTORY: Negative for premature coronary artery disease. SOCIAL HISTORY: Significant for smoking and ETOH abuse. REVIEW OF SYSTEMS: HEENT is unremarkable. Cardiac as described above. Respiratory as described above. GI negative. Genitourinary negative. Allergy/Immunology: Negative. Musculoskeletal: Negative. Endocrine: Negative. Constitutional negative. Oncological negative. Derm negative. [employer] negative. Rest of the system review is not relevant. EXAM: Patient appeared comfortable at rest. Vital signs are stable. There is no jugular venous distention. Chest exam reveals good air entry bilaterally. Heart exam reveals first and second heart sounds. No gallop. No murmur. Abdomen is soft. Exam of the extremities did not reveal any edema. Peripheral pulses are palpable. [employer] exam did not reveal focal neurological deficits. LABS: Show a hemoglobin of 13.1, platelet count is 169, potassium is 3.9. Creatinine is 0.6. LDL cholesterol is 84 and the first set of troponin was 0.2. ASSESSMENT: Acute non ST-segment elevation NC with EKG changes suggestive of a lesion in the LAD. PLAN: Patient will undergo cardiac catheterization and further course of action based on the cath findings. He will be treated optimal acute coronary syndrome measures will be initiated in the ER. MMODL / IJN: [id number] /
--- NOTE | 2019-07-20 09:27 | CC ---
CARDIAC CATHETERIZATION REPORT DATE OF SERVICE: 07/20/2019. PROCEDURE PERFORMED: Coronary angiography of left coronary artery. PERFORMED BY: Dr. Zarina Ng. ANESTHESIA: Moderate conscious sedation time was 24 minutes. CLINICAL INFORMATION: Mr. Maya is a 59-year-old gentleman who underwent stenting of a bifurcation LAD diagonal yesterday with a provisional stenting with dilatation of LAD and diagonal with a kissing balloon but stent was placed in the LAD, which was a drug-eluting stent. Post procedure, he had a lot of thrombus requiring manual aspiration thrombectomy and also distal 1/6 of the LAD was occluded with decent flow in the diagonal. He was brought in for a repeat injection this morning in view of his unstable status through the night and also because of significant thrombus burden noted yesterday. PROCEDURE NOTE: Under strict aseptic precautions and local anesthesia, using the same 7-Malaysian introducer in the right femoral artery, I advanced and positioned a standard left Reji guide catheter and performed selective coronary angiography in multiple projections. Study revealed that there was a good TYSHAWN-3 flow in both LAD as well as the diagonal. Diagonal was completely open without any semblance of thrombus or occlusion. The distal LAD, the distal 1/6 of the vessel was totally occluded with the sluggish flow beyond that. The rest of the LAD was widely patent and the stented segment was patent and the origin of the diagonal was also widely patent. The results were discussed with the patient. There was no family members available. I took the 7- Malaysian introducer out and used a Perclose device to secure hemostasis and he was then sent to the room in a stable condition. Results were discussed with the patient. No family was available. We will continue dual antiplatelet therapy, beta blockers and losartan and also obtain echocardiogram tomorrow morning. There were no other family members for me to talk to. Patient is doing well, hemodynamically stable, nitroglycerin drip will be discontinued. MMODL / IJN: [id number] /
[2019-07-20] MEDS: NICOTINE 21MG/24HR PATCH TRANSDERM SCH (10:22)
[2019-07-20] MEDS: LISINOPRIL 10 MG TAB PO SCH (10:22)
[2019-07-20 11:58] LABS: Glucose,Whole Blood 222 mg/dL (75-99)
[2019-07-20] MEDS: HEPARIN SOD,PORK IN 0.45% NACL 25,000 UNIT in 0.45% NACL 1 250ML.BAG IV SCH (12:15)
--- NOTE | 2019-07-20 14:21 | P.PN ---
Objective - Vital Signs Vital signs: Vital Signs Temp 98.1 F 07/20/19 12:00 Pulse 66 07/20/19 13:00 Resp 22 07/20/19 13:00 BP 133/89 07/20/19 13:00 Pulse Ox 94 L 07/20/19 13:00 Intake & Output 07/19/19 07/20/19 07/20/19 18:59 06:59 18:59 Intake Total 363 1300 735 Output Total 1700 1400 Balance 363 -400 -665 Weight 97.522 kg 95.3 kg Intake: IV 336 1060 735 Sodium Chloride 0.9% 1, 800 675 000 ml @ 100 mls/hr IV . Q10H [facility] Rx#:[id number] Intake, IV Titration 27 Amount Heparin Sod,Pork in 0.45% 27 NaCl 25,000 unit In 0.45 % NaCl 1 250ml.bag @ 10. 254 UNITS/KG/HR 10 mls/hr IV .Q24H [facility] Rx#: [id number] Oral 240 Output: Urine 1700 1400 Other: Voiding Method Urinal Urinal ABP, PAP, CO, CI - Last Documented Arterial Blood Pressure 182/87 - Labs CBC & Chem 7: 07/20/19 06:00 07/20/19 06:00 Labs: Abnormal Lab Results - Last 24 Hours (Table) 07/19/19 07/20/19 07/20/19 Range/Units 21:08 06:00 06:00 RBC 3.95 L (4.30-5.90) m/uL Hct 37.0 L (39.0-53.0) % Lymphocytes # 0.9 L (1.0-4.8) k/uL Sodium 136 L (137-145) mmol/L BUN 8 L (9-20) mg/dL Creatinine 0.64 L (0.66-1.25) mg/dL Glucose 184 H (74-99) mg/dL POC Glucose (mg/dL) 127 H (75-99) mg/dL Troponin I (0.000-0.034) ng/mL HDL Cholesterol 32 L (40-60) mg/dL 07/20/19 07/20/19 Range/Units 06:16 11:57 RBC (4.30-5.90) m/uL Hct (39.0-53.0) % Lymphocytes # (1.0-4.8) k/uL Sodium (137-145) mmol/L BUN (9-20) mg/dL Creatinine (0.66-1.25) mg/dL Glucose (74-99) mg/dL POC Glucose (mg/dL) 222 H (75-99) mg/dL Troponin I 4.540 H* (0.000-0.034) ng/mL HDL Cholesterol (40-60) mg/dL Assessment and Plan Assessment: 1. Non-ST elevation myocardial infarction: Started on optimal medical management. Seen and evaluated by cardiology. Status post left heart catheterization with successful stent placement to the LAD. Echocardiogram showed preserved ejection fraction with no significant wall motion or valvular abnormalities. continue desk monitor. Appreciate cardiology recommendations. 2. History of type 2 diabetes not on any medication. continue sliding scale insulin awaiting A1c 3. Hyperlipidemia, Started on Lipitor 80 mg. total cholesterol 140 and LDL of 85 4. History of essential hypertension, patient stopped taking all of his medications secondary to lack of insurance. I started lisinopril 10 mg daily, continue to monitor closely. 5. Tobacco abuse: Counseled extensively to quit. Nicotine patch ordered. Today, I reviewed his medication list and lab work results. Continue IV fluid hydration with normal saline at the 100 mL per hour. Patient was updated about his current condition. All of his questions answered to his satisfaction. Repeat lab work in the morning. Anticipate discharge home tomorrow if cleared by cardiology
[2019-07-20 16:57] LABS: Glucose,Whole Blood 173 mg/dL (75-99)
[2019-07-20 20:29] LABS: Glucose,Whole Blood 182 mg/dL (75-99)
[2019-07-20] MEDS: ACETAMINOPHEN TAB 325 MG TAB PO PRN (20:34)
[2019-07-20] MEDS: ATORVASTATIN 80 MG TAB PO SCH (20:35)
[2019-07-20] MEDS ORDERED: ATORVASTATIN 80 MG TAB PO SCH (21:00)
[2019-07-21 05:16] LABS: Basophils % (A) 0 %; Eosinophils # (A) 0.2 k/uL (0-0.7); Eosinophils % (A) 3 %; HCT 38.6 % (39.0-53.0); HGB 13.1 gm/dL (13.0-17.5); Lymphocytes # (A) 1.2 k/uL (1.0-4.8); Lymphocytes % (A) 14 %; MCH 32.5 pg (25.0-35.0); MCHC 34.1 g/dL (31.0-37.0); MCV 95.5 fL (80.0-100.0); Monocytes # (A) 0.7 k/uL (0-1.0); Monocytes % (A) 8 %; Neutrophils # (A) 6.2 k/uL (1.3-7.7); Neutrophils % (A) 73 %; Platelet Count 170 k/uL (150-450); RBC 4.04 m/uL (4.30-5.90); RDW 12.1 % (11.5-15.5); WBC 8.5 k/uL (3.8-10.6)
[2019-07-21 05:26] LABS: African American GFR (CKD) >90 (>60 ml/min/1.73 sqM); Anion Gap 6 mmol/L; Blood Urea Nitrogen 9 mg/dL (9-20); Carbon Dioxide 25 mmol/L (22-30); Chloride 107 mmol/L (98-107); Glucose 148 mg/dL (74-99); Non-African American GFR(CKD) >90 (>60 ml/min/1.73 sqM); Sodium 138 mmol/L (137-145)
[2019-07-21] MEDS: SODIUM CHLORIDE 0.9% 1,000 ML IV SCH (05:46)
[2019-07-21 06:53] LABS: Glucose,Whole Blood 155 mg/dL (75-99)
[2019-07-21] MEDS: INSULIN ASPART (NovoLOG) 100 UNIT/ML VIAL SQ SCH ×4 (06:56→20:22)
--- NOTE | 2019-07-21 07:20 | P.PN ---
Subjective Progress Note Date: 07/21/19 Principal diagnosis: Acute non-ST elevation myocardial infarction This is a pleasant 59-year-old gentleman with a past medical history significant for borderline diabetes, significant history of smoking, hypertension, dyslipidemia, presented to the emergency room complaining of chest discomfort and ruled in for acute non-ST patient myocardial infarction. He underwent an emergent heart catheterization and that revealed severe disease involving the LAD/diagonal. He underwent an angioplasty of both. Apparently the procedure was complex and the patient was taken yesterday for a follow-up heart cath and at that point he was treated medically only. He was started Aggrastat which was stopped this morning. The echo revealed normal LV function. On follow-up with the patient today, he seems to be doing good and he is asymptomatic from the cardiovascular standpoint of view. The right groin is soft and nontender and without any bruises. He denies chest pain, chest disc omfort, shortness of breath, dizziness, or heart racing or fluttering. No arrhythmia noted. Hemodynamically he is stable. As I mentioned earlier the echo revealed normal LV function. He is on losartan and lisinopril and I am going to DC the losartan and continue lisinopril. He is on aspirin and statin but not on any oral anticoagulation. I'm going to load the patient with Brilinta today and start him on maintenance dose tomorrow. Objective - Vital Signs Vital signs: Vital Signs Temp 98.4 F 07/21/19 04:00 Pulse 90 07/21/19 07:00 Resp 22 07/21/19 07:00 BP 127/84 07/21/19 07:00 Pulse Ox 85 L 07/21/19 07:00 Intake & Output 07/20/19 07/21/19 07/21/19 18:59 06:59 18:59 Intake Total 1035 1320 Output Total 1750 2550 0 Balance -715 -1230 0 Weight 98.5 kg Intake: IV 1035 600 Sodium Chloride 0.9% 1, 975 600 000 ml @ 100 mls/hr IV . Q10H [facility] Rx#:[id number] Oral 720 Output: Urine 1750 2550 0 Other: Voiding Method Urinal Urinal # Voids 1 ABP, PAP, CO, CI - Last Documented Arterial Blood Pressure 182/87 - Constitutional General appearance: Present: no acute distress - Respiratory Respiratory: bilateral: CTA - Cardiovascular Rhythm: regular Heart sounds: normal: S1, S2 - Labs CBC & Chem 7: 07/21/19 04:34 07/21/19 04:33 Labs: Abnormal Lab Results - Last 24 Hours (Table) 07/20/19 07/20/19 07/20/19 Range/Units 11:57 16:55 20:27 RBC (4.30-5.90) m/uL Hct (39.0-53.0) % Glucose (74-99) mg/dL POC Glucose (mg/dL) 222 H 173 H 182 H (75-99) mg/dL 07/21/19 07/21/19 07/21/19 Range/Units 04:33 04:34 06:52 RBC 4.04 L (4.30-5.90) m/uL Hct 38.6 L (39.0-53.0) % Glucose 148 H (74-99) mg/dL POC Glucose (mg/dL) 155 H (75-99) mg/dL Assessment and Plan Assessment: Assessment #1 acute coronary event #2 severe CAD and status post PCI of the LAD/diagonal #3 significant history of smoking #4 hypertension #5 dyslipidemia #6 borderline diabetes Plan #1 continue monitoring the patient in the ICU for additional 24 hours #2 the echocardiogram was reviewed and revealed normal LV function #3 the groin is soft and nontender and without any bruises #4 start the patient on oral antiplatelet #5 DC losartan in view of the patient taking lisinopril #6 continue aspirin and statin Thank you for allowing us participate in his care
[2019-07-21] MEDS ORDERED: TICAGRELOR 90 MG TAB PO STA (07:26)
[2019-07-21] MEDS: METOPROLOL TARTRATE 12.5 MG TAB PO SCH ×2 (08:06→20:22)
[2019-07-21] MEDS: NICOTINE 21MG/24HR PATCH TRANSDERM SCH (08:06)
[2019-07-21] MEDS: LISINOPRIL 10 MG TAB PO SCH (08:06)
[2019-07-21] MEDS: ASPIRIN 81 MG PO SCH (08:06)
[2019-07-21 09:47] LABS: Hemoglobin A1C 7.9 % (4.0-6.0)
[2019-07-21 12:03] LABS: Glucose,Whole Blood 139 mg/dL (75-99)
--- NOTE | 2019-07-21 13:56 | P.PN ---
Subjective Progress Note Date: 07/21/19 Principal diagnosis: Non-ST elevation [place] Patient was seen and examined. No acute events overnight. Patient denies any chest pain, shortness of breath or palpitations. No nausea or vomiting. No fever or chills. Ambulating the hallways without any difficulties. Objective - Vital Signs Vital signs: Vital Signs Temp 97.9 F 07/21/19 12:00 Pulse 73 07/21/19 12:00 Resp 22 07/21/19 12:00 BP 110/81 07/21/19 12:00 Pulse Ox 96 07/21/19 12:00 Intake & Output 07/20/19 07/21/19 07/21/19 18:59 06:59 18:59 Intake Total 1035 1320 Output Total 1750 2550 250 Balance -715 -1230 -250 Weight 98.5 kg Intake: IV 1035 600 Sodium Chloride 0.9% 1, 975 600 000 ml @ 100 mls/hr IV . Q10H [facility] Rx#:[id number] Oral 720 Output: Urine 1750 2550 250 Other: Voiding Method Urinal Urinal Urinal # Voids 1 ABP, PAP, CO, CI - Last Documented Arterial Blood Pressure 182/87 - Exam General: [non toxic], [no distress], [appears at stated age] Derm: [warm], [dry] Head: [atraumatic], [normocephalic], [symmetric] Eyes: [EOMI], [no lid lag], [anicteric sclera] Mouth: [no lip lesion], [mucus membranes moist] Cardiovascular: [S1S2 reg], [no murmur], [positive DP pulse bilateral], Lungs: [CTA bilateral], [no rhonchi, no rales] , [no accessory muscle use] Abdominal: [soft], [ nontender to palpation], [no guarding], [no appreciable organomegaly] Ext: [no gross muscle atrophy], [no edema], [no contractures] Neuro: [no focal neuro deficits] Psych: [Alert], [oriented], [appropriate affect] - Labs CBC & Chem 7: 07/21/19 04:34 07/21/19 04:33 Labs: Abnormal Lab Results - Last 24 Hours (Table) 07/20/19 07/20/19 07/20/19 Range/Units 06:00 16:55 20:27 RBC (4.30-5.90) m/uL Hct (39.0-53.0) % Glucose (74-99) mg/dL POC Glucose (mg/dL) 173 H 182 H (75-99) mg/dL Hemoglobin A1c 7.9 H (4.0-6.0) % 07/21/19 07/21/19 07/21/19 Range/Units 04:33 04:34 06:52 RBC 4.04 L (4.30-5.90) m/uL Hct 38.6 L (39.0-53.0) % Glucose 148 H (74-99) mg/dL POC Glucose (mg/dL) 155 H (75-99) mg/dL Hemoglobin A1c (4.0-6.0) % 07/21/19 Range/Units 12:02 RBC (4.30-5.90) m/uL Hct (39.0-53.0) % Glucose (74-99) mg/dL POC Glucose (mg/dL) 139 H (75-99) mg/dL Hemoglobin A1c (4.0-6.0) % Assessment and Plan Assessment: Assessment and plan Non-ST elevation LA with history of CAD History of smoking Hypertension Dyslipidemia Diabetes mellitus Troponin peak at 4.54. Echocardiogram shows EF 55-60% with moderate concentric LVH. Cardiac cath performed, shows 95% stenosis LAD, stent placed. Plans: Continue aspirin and Lipitor. Continue beta wilber. Continue Brilinta. Telemetry monitoring. Follow cardiology recommendations. Plans: Encourage to quit. Continue nicotine patch. BP 110/81. Plans: Continue MAXIMILIANO inhibitor and beta wilber. Monitor vitals, adjust medications as necessary. Lipid panel shows total cholesterol 140, LDL 84. Plans: Continue Lipitor. A1c 7.9. Kcjyo-mv-mddp glucose 148. Plans: Insulin sliding scale. Regular Accu-Cheks. Hypoglycemic precautions. [Plans to observe overnight as per cardiology recommendations. Likely DC tomorrow. Social work working on obtaining medications per patient.]
[2019-07-21 16:59] LABS: Glucose,Whole Blood 138 mg/dL (75-99)
[2019-07-21] MEDS: ACETAMINOPHEN TAB 325 MG TAB PO PRN (18:49)
[2019-07-21 20:12] LABS: Glucose,Whole Blood 181 mg/dL (75-99)
[2019-07-21] MEDS: ATORVASTATIN 80 MG TAB PO SCH (20:22)
[2019-07-22 04:51] LABS: Basophils % (A) 0 %; Eosinophils # (A) 0.3 k/uL (0-0.7); Eosinophils % (A) 4 %; HCT 37.4 % (39.0-53.0); HGB 12.7 gm/dL (13.0-17.5); Lymphocytes # (A) 1.6 k/uL (1.0-4.8); Lymphocytes % (A) 24 %; MCH 32.2 pg (25.0-35.0); MCHC 33.9 g/dL (31.0-37.0); MCV 95.1 fL (80.0-100.0); Mean Platelet Volume 6.3; Monocytes # (A) 0.5 k/uL (0-1.0); Monocytes % (A) 7 %; Neutrophils % (A) 62 %; Platelet Count 150 k/uL (150-450); RBC 3.93 m/uL (4.30-5.90); RDW 11.9 % (11.5-15.5); WBC 6.6 k/uL (3.8-10.6)
[2019-07-22 05:04] LABS: African American GFR (CKD) >90 (>60 ml/min/1.73 sqM); Anion Gap 6 mmol/L; Blood Urea Nitrogen 12 mg/dL (9-20); Carbon Dioxide 24 mmol/L (22-30); Chloride 106 mmol/L (98-107); Glucose 187 mg/dL (74-99); Non-African American GFR(CKD) >90 (>60 ml/min/1.73 sqM); Potassium 3.8 mmol/L (3.5-5.1); Sodium 136 mmol/L (137-145)
[2019-07-22] MEDS ORDERED: Potassium Replacement Protocol 1 EACH MISC MISCELLANE PRN (05:12)
[2019-07-22] MEDS ORDERED: POTASSIUM CHLORIDE ER 20 MEQ TAB.ER PO SCH (06:00)
[2019-07-22] MEDS: ACETAMINOPHEN TAB 325 MG TAB PO PRN (06:01)
[2019-07-22 06:58] LABS: Glucose,Whole Blood 170 mg/dL (75-99)
[2019-07-22] MEDS: INSULIN ASPART (NovoLOG) 100 UNIT/ML VIAL SQ SCH ×4 (07:08→21:15)
--- NOTE | 2019-07-22 07:22 | P.PN ---
Subjective Progress Note Date: 07/22/19 Principal diagnosis: Acute non-ST elevation myocardial infarction This is a pleasant 59-year-old gentleman with a past medical history significant for borderline diabetes, significant history of smoking, hypertension, dyslipidemia, presented to the emergency room complaining of chest discomfort and ruled in for acute non-ST patient myocardial infarction. He underwent an emergent heart catheterization and that revealed severe disease involving the LAD/diagonal. He underwent an angioplasty of both. Apparently the procedure was complex and the patient was taken yesterday for a follow-up heart cath and at that point he was treated medically only. He was started Aggrastat which was stopped this morning. The echo revealed normal LV function. On follow-up with the patient today, 07/22/2019, the patient is doing good and he is asymptomatic from a cardiovascular standpoint of view. He is on dual antiplatelet therapy along with statin along with MAXIMILIANO inhibitor along with beta wilber. I would recommend the patient to be transferred to the floor for possible discharge in the next 24 hours. No arrhythmia was noted. Objective - Vital Signs Vital signs: Vital Signs Temp 98.7 F 07/22/19 04:00 Pulse 76 07/22/19 07:00 Resp 13 07/22/19 04:00 BP 109/78 07/22/19 07:00 Pulse Ox 96 07/22/19 04:00 Intake & Output 07/21/19 07/22/19 07/22/19 18:59 06:59 18:59 Intake Total 100 700 250 Output Total 800 1575 0 Balance -700 -875 250 Weight 99.6 kg Intake: IV 100 200 ceFAZolin 1,000 mg In 100 200 Sodium Chloride 0.9% 50 ml @ 100 mls/hr IVPB Q8H [facility] Rx#:[id number] Oral 500 250 Output: Urine 800 1575 0 Other: Voiding Method Toilet Toilet Urinal Urinal ABP, PAP, CO, CI - Last Documented Arterial Blood Pressure 182/87 - Respiratory Respiratory: bilateral: CTA - Cardiovascular Rhythm: regular Heart sounds: normal: S1, S2 - Labs CBC & Chem 7: 07/22/19 04:30 07/22/19 04:30 Labs: Abnormal Lab Results - Last 24 Hours (Table) 07/20/19 07/21/19 07/21/19 Range/Units 06:00 12:02 16:57 RBC (4.30-5.90) m/uL Hgb (13.0-17.5) gm/dL Hct (39.0-53.0) % Sodium (137-145) mmol/L Glucose (74-99) mg/dL POC Glucose (mg/dL) 139 H 138 H (75-99) mg/dL Hemoglobin A1c 7.9 H (4.0-6.0) % 07/21/19 07/22/19 07/22/19 Range/Units 20:11 04:30 04:30 RBC 3.93 L (4.30-5.90) m/uL Hgb 12.7 L (13.0-17.5) gm/dL Hct 37.4 L (39.0-53.0) % Sodium 136 L (137-145) mmol/L Glucose 187 H (74-99) mg/dL POC Glucose (mg/dL) 181 H (75-99) mg/dL Hemoglobin A1c (4.0-6.0) % 07/22/19 Range/Units 06:57 RBC (4.30-5.90) m/uL Hgb (13.0-17.5) gm/dL Hct (39.0-53.0) % Sodium (137-145) mmol/L Glucose (74-99) mg/dL POC Glucose (mg/dL) 170 H (75-99) mg/dL Hemoglobin A1c (4.0-6.0) % Assessment and Plan Assessment: Assessment #1 acute coronary event #2 severe CAD and status post PCI of the LAD/diagonal #3 significant history of smoking #4 hypertension #5 dyslipidemia #6 borderline diabetes Plan #1 continue the current medical regimen #2 continue dual antiplatelet therapy #3 continue metoprolol, lisinopril, and high intensity statin #4 transferred out of the ICU #5 possible discharge home tomorrow
[2019-07-22] MEDS: NICOTINE 21MG/24HR PATCH TRANSDERM SCH (08:30)
[2019-07-22] MEDS: METOPROLOL TARTRATE 12.5 MG TAB PO SCH ×2 (08:30→21:18)
[2019-07-22] MEDS: TICAGRELOR 90 MG TAB PO SCH ×2 (08:30→21:18)
[2019-07-22] MEDS: LISINOPRIL 10 MG TAB PO SCH (08:30)
[2019-07-22] MEDS: ASPIRIN 81 MG PO SCH (08:31)
--- NOTE | 2019-07-22 11:18 | P.PN ---
Subjective Progress Note Date: 07/22/19 Principal diagnosis: Non-ST elevation [place] Patient was seen and examined. No acute events overnight. Patient denies any chest pain, shortness of breath or palpitations. No nausea or vomiting. No fever or chills. Ambulating the hallways without any difficulties. Objective - Vital Signs Vital signs: Vital Signs Temp 98.3 F 07/22/19 08:00 Pulse 57 L 07/22/19 08:00 Resp 16 07/22/19 08:00 BP 106/75 07/22/19 08:00 Pulse Ox 94 L 07/22/19 08:00 Intake & Output 07/21/19 07/22/19 07/22/19 18:59 06:59 18:59 Intake Total 100 700 750 Output Total 800 1575 0 Balance -700 -875 750 Weight 99.6 kg Intake: IV 100 200 ceFAZolin 1,000 mg In 100 200 Sodium Chloride 0.9% 50 ml @ 100 mls/hr IVPB Q8H [facility] Rx#:[id number] Oral 500 750 Output: Urine 800 1575 0 Other: Voiding Method Toilet Toilet Toilet Urinal Urinal Urinal ABP, PAP, CO, CI - Last Documented Arterial Blood Pressure 182/87 - Exam General: [non toxic], [no distress], [appears at stated age] Derm: [warm], [dry] Head: [atraumatic], [normocephalic], [symmetric] Eyes: [EOMI], [no lid lag], [anicteric sclera] Mouth: [no lip lesion], [mucus membranes moist] Cardiovascular: [S1S2 reg], [no murmur], [positive DP pulse bilateral], Lungs: [CTA bilateral], [no rhonchi, no rales] , [no accessory muscle use] Abdominal: [soft], [ nontender to palpation], [no guarding], [no appreciable organomegaly] Ext: [no gross muscle atrophy], [no edema], [no contractures] Neuro: [no focal neuro deficits] Psych: [Alert], [oriented], [appropriate affect] - Labs CBC & Chem 7: 07/22/19 04:30 07/22/19 04:30 Labs: Abnormal Lab Results - Last 24 Hours (Table) 11/07/2907/21/19 07/21/19 Range/Units 12:02 16:57 20:11 RBC (4.30-5.90) m/uL Hgb (13.0-17.5) gm/dL Hct (39.0-53.0) % Sodium (137-145) mmol/L Glucose (74-99) mg/dL POC Glucose (mg/dL) 139 H 138 H 181 H (75-99) mg/dL 07/22/19 07/22/19 07/22/19 Range/Units 04:30 04:30 06:57 RBC 3.93 L (4.30-5.90) m/uL Hgb 12.7 L (13.0-17.5) gm/dL Hct 37.4 L (39.0-53.0) % Sodium 136 L (137-145) mmol/L Glucose 187 H (74-99) mg/dL POC Glucose (mg/dL) 170 H (75-99) mg/dL Assessment and Plan Assessment: Assessment and plan Non-ST elevation [place] with history of CAD History of smoking Hypertension Dyslipidemia Diabetes mellitus Troponin peak at 4.54. Echocardiogram shows EF 55-60% with moderate concentric LVH. Cardiac cath performed, shows 95% stenosis LAD, stent placed. Plans: Continue aspirin and Lipitor. Continue beta wilber. Continue Brilinta. Tele metry monitoring. Follow cardiology recommendations. Plans: Encourage to quit. Continue nicotine patch. BP 106/75. Plans: Continue MAXIMILIANO inhibitor and beta wilber. Monitor vitals, adjust medications as necessary. Lipid panel shows total cholesterol 140, LDL 84. Plans: Continue Lipitor. A1c 7.9. Pwypr-tk-suaz glucose 170. Plans: Insulin sliding scale. Regular Accu-Cheks. Hypoglycemic precautions. [Plans to observe overnight as per cardiology recommendations. Likely DC tomorrow. Social work working on obtaining medications per patient.]
[2019-07-22 11:39] LABS: Glucose,Whole Blood 140 mg/dL (75-99)
[2019-07-22 16:34] LABS: Glucose,Whole Blood 129 mg/dL (75-99)
[2019-07-22 20:35] LABS: Glucose,Whole Blood 185 mg/dL (75-99)
[2019-07-22] MEDS: ATORVASTATIN 80 MG TAB PO SCH (21:19)
[2019-07-23] MEDS: ACETAMINOPHEN TAB 325 MG TAB PO PRN (04:39)
[2019-07-23 05:21] VITALS: RESP 18
[2019-07-23 06:32] LABS: Glucose,Whole Blood 137 mg/dL (75-99)
[2019-07-23] MEDS: INSULIN ASPART (NovoLOG) 100 UNIT/ML VIAL SQ SCH (06:36)
[2019-07-23 08:48] VITALS: BP 123/77; PULSE 55; TEMP 98.1
[2019-07-23] MEDS: TICAGRELOR 90 MG TAB PO SCH (09:08)
[2019-07-23] MEDS: LISINOPRIL 10 MG TAB PO SCH (09:08)
[2019-07-23] MEDS: METOPROLOL TARTRATE 12.5 MG TAB PO SCH (09:09)
[2019-07-23] MEDS: ASPIRIN 81 MG PO SCH (09:09)
[2019-07-23] MEDS: NICOTINE 21MG/24HR PATCH TRANSDERM SCH (09:11)
--- NOTE | 2019-07-23 10:53 | P.DS ---
Providers Date of admission: 07/19/19 12:41 Expected date of discharge: 07/23/19 Attending physician: Lorin Shafer Consults: 07/19/19 12:41 Consult Physician Stat Consulting Provider: Nadir Jack Consult Reason/Comments: NSTEMI Do you want consulting provider notified?: Already Contacted Primary care physician: Stated None Hospital Course: Patient is a 59-year-old male with past medical history for type II days is not is and hypertension not on any current medication initially presented to the ED for chest pain. EKG was performed in the ED which showed nonspecific ST-T wave changes. Initial troponin was elevated at 0.219. Second troponin peaked at 4.54. Chest x-ray showed cardiomegaly but no acute findings. Patient was seen by cardiology and plan was to take him to the [facility]. Patient was started on full dose aspirin and 80 mg of Lipitor. He started on IV heparin and taken to the [facility]. Cardiac catheterization showed focal 95% stenosis in the LAD, mild nonobstructive disease of the circumflex and RCA. Patient had stent placement. Echocardiogram showed EF 55-60% with moderate concentric LVH. Patient was started on aspirin, Lipitor, [place] to and beta wilber cardiac catheterization. Lipid panel was performed which showed total cholesterol of 140 and LDL of 84. A1c was 7.9, patient was diagnosed with new onset diabetes mellitus. His blood sugars were controlled with insulin sliding scale while hospitalized and transitioned to metformin on discharge. Patient was seen and examined. No acute events overnight. Patient reports no chest pain, shortness breath or palpitations. No nausea or vomiting. No fever or chills. General: [non toxic], [no distress], [appears at stated age] Derm: [warm], [dry] Head: [atraumatic], [normocephalic], [symmetric] Eyes: [EOMI], [no lid lag], [anicteric sclera] Mouth: [no lip lesion], [mucus membranes moist] Cardiovascular: [S1S2 reg], [no murmur], [positive DP pulse bilateral], Lungs: [CTA bilateral], [no rhonchi, no rales] , [no accessory muscle use] Abdominal: [soft], [ nontender to palpation], [no guarding], [no appreciable organomegaly] Ext: [no gross muscle atrophy], [no edema], [no contractures] Neuro: [no focal neuro deficits] Psych: [Alert], [oriented], [appropriate affect] Assessment and plan Non-ST elevation [place] with history of CAD Diastolic CHF History of smoking Hypertension Dyslipidemia Diabetes mellitus Troponin peak at 4.54. Echocardiogram shows EF 55-60% with moderate concentric LVH. Cardiac cath performed, shows 95% stenosis LAD, stent placed. Plans: Continue aspirin and Lipitor. Continue beta wilber. Continue Brilinta. Telemetry monitoring. Follow cardiology recommendations. As seen on echocardiogram. Plans: Needs good blood pressure control. Plans: Encourage to quit. Continue nicotine patch. BP 123/77. Plans: Continue MAXIMILIANO inhibitor and beta wilber. Monitor vitals, adjust medications as necessary. Lipid panel shows total cholesterol 140, LDL 84. Plans: Continue Lipitor. A1c 7.9. Fdgym-av-xhss glucose 137. Plans: Insulin sliding scale. Regular Accu-Cheks. Hypoglycemic precautions. We'll start metformin for diabetes. [Medications to be delivered to bedside. Patient has a glucometer. Needs follow-up with cardiology within 1 week. See PCP within 3 days.] Pertinent Studies: Chest x-ray, echocardiogram Procedures: Cardiac catheterization Patient Condition at Discharge: Stable Plan - Discharge Summary Discharge Rx Participant: Yes New Discharge Prescriptions: New Aspirin 81 mg PO DAILY #30 chew Ticagrelor [Brilinta] 90 mg PO BID #60 tab metFORMIN HCL [Glucophage] 500 mg PO BID #60 tab Atorvastatin [Lipitor] 80 mg PO HS #30 tab Metoprolol Tartrate [Lopressor] 12.5 mg PO BID #60 tab Lisinopril [Zestril] 10 mg PO DAILY #30 tab Discharge Medication List Aspirin 81 mg PO DAILY #30 chew 07/23/19 [Rx] Atorvastatin [Lipitor] 80 mg PO HS #30 tab 07/23/19 [Rx] Lisinopril [Zestril] 10 mg PO DAILY #30 tab 07/23/19 [Rx] Metoprolol Tartrate [Lopressor] 12.5 mg PO BID #60 tab 07/23/19 [Rx] Ticagrelor [Brilinta] 90 mg PO BID #60 tab 07/23/19 [Rx] metFORMIN HCL [Glucophage] 500 mg PO BID #60 tab 07/23/19 [Rx] Follow up Appointment(s)/Referral(s): None,Stated [Primary Care Provider] - 1-2 days Nadir Jack MD [STAFF PHYSICIAN] - 1 Week Activity/Diet/Wound Care/Special Instructions: Contact CM at [place], Pt will need indigent funds Follow-up PCP within 3 days of discharge. Follow-up with cardiology within 1 week of discharge. Please take all medications as advised. He will need to start taking Plavix after he finishes a 1 month course of Brilinta. Come back to the ED or call 911 for worsening chest pain, shortness of breath or palpitations. Discharge Disposition: HOME SELF-CARE
[2019-07-23] MEDS ORDERED: NITROGLYCERIN SL TABS 0.4 MG TAB SUBLINGUAL PRN (11:47)
[2019-07-23 12:06] LABS: Glucose,Whole Blood 154 mg/dL (75-99)
--- NOTE | 2019-07-23 13:42 | P.PN ---
Subjective Progress Note Date: 07/23/19 This is a pleasant 59-year-old gentleman with a past medical history significant for borderline diabetes, significant history of smoking, hypertension, dyslipidemia, presented to the emergency room complaining of chest discomfort and ruled in for acute non-ST patient myocardial infarction. He underwent an emergent heart catheterization and that revealed severe disease involving the LAD/diagonal. He underwent an angioplasty and stenting of both. Patient was seen and examined today on the cardiac unit, he is doing well, ambulating in the hallway without any difficulty. Denies any chest discomfort, no palpitations or shortness of breath. Blood pressure 122/70 with a heart rate in the 50s to 60s, 97% on room air. Objective - Vital Signs Vital signs: Vital Signs Temp 98.1 F 07/23/19 08:00 Pulse 55 L 07/23/19 08:00 Resp 18 07/23/19 08:00 BP 123/77 07/23/19 08:00 Pulse Ox 97 07/23/19 08:00 Intake & Output 07/22/19 07/23/19 07/23/19 18:59 06:59 18:59 Intake Total 1350 480 Output Total 375 825 Balance 975 -825 480 Weight 97 kg 97.4 kg Intake: IV 100 ceFAZolin 1,000 mg In 100 Sodium Chloride 0.9% 50 ml @ 100 mls/hr IVPB Q8H [facility] Rx#:[id number] Oral 1250 480 Output: Urine 375 825 Other: Voiding Method Toilet Toilet Urinal Urinal # Voids 1 2 ABP, PAP, CO, CI - Last Documented Arterial Blood Pressure 182/87 - Exam PHYSICAL EXAMINATION: GENERAL: 59-year-old gentleman in no acute distress at the time of my examination HEENT: Head is atraumatic, normocephalic. Pupils equal, round. Sclera anicteric. Conjunctiva are clear. Mucous membranes of the mouth are moist. Neck is supple. There is no elevated jugular venous pressure. No carotid bruit is heard. HEART EXAMINATION: Heart S1, S2 normal. No murmur or gallop heard. CHEST EXAMINATION: Lungs are clear to auscultation and precussion. No chest wall tenderness is noted on palpation or with deep breathing. ABDOMEN: Soft, nontender. Bowel sounds are heard. No organomegaly noted. EXTREMITIES: 2+ peripheral pulses with no evidence of peripheral edema and no calf tenderness noted. NEUROLOGIC patient is awake, alert and oriented 3 . . - Labs CBC & Chem 7: 07/22/19 04:30 07/22/19 04:30 Labs: Abnormal Lab Results - Last 24 Hours (Table) 07/22/19 07/22/19 07/23/19 Range/Units 16:33 20:33 06:30 POC Glucose (mg/dL) 129 H 185 H 137 H (75-99) mg/dL 07/23/19 Range/Units 11:56 POC Glucose (mg/dL) 154 H (75-99) mg/dL Assessment and Plan Plan: Assessment and plan #1 non-ST elevation [place], status post angioplasty and stenting of the LAD and diagonal #2 nicotine dependence #3 hypertension #4 hyperlipidemia #5 borderline diabetes Plan From cardiology's perspective, patient may be able to be discharged home today. A follow-up appointment will be made in the office with Dr. Jack in one week. Patient will be discharged home on baby aspirin daily, Lipitor 80 mg daily, lisinopril 10 mg daily, metoprolol 12-1/2 mg by mouth twice a day, Brilinta 90 mg one tablet by mouth twice a day which the patient will continue for one month, then he will be loaded with Plavix and start to take Plavix 75 mg daily, sublingual nitroglycerin as needed for chest pain. DNP note has been reviewed, I agree with a documented findings and plan of care. Patient was seen and examined.
--- NOTE | 2019-07-24 11:07 | CDI ---
Documentation Clarification Form Date: 07/24/19 From: Arlin Dangelo Phone: If you have a question about this query, please contact Lois Ruby, Metal [employer] Inspector at [phone] between 8am and 5pm. Admit Date: 07/19/19 Discharge Date: 07/23/19 Patient Name: Garrett Maya Visit Number: [id number] ATTENTION: The Clinical Documentation Specialists (CDI) and [facility] Coding Staff appreciate your assistance in clarifying documentation. Please respond to the clarification below the line at the bottom and electronically sign. The CDI & [facility] Coding staff will review the response and follow-up if needed. Please note: Queries are made part of the Legal Health Record. If you have any questions, please contact the author of this message via ITS. Dear Dr. Michael Sheikh, Diastolic CHF is documented in the DS. Please specify the acuity of this condition with terms such as: Acute Chronic Acute and chronic Acute on chronic Other (please specify in the medical record) Clinically unable to further specify Unknown chronic __ MTDD
== END 2019-07-23 13:58 | disposition home or self-care (01) | DRG 247 ==
LOC: EC 11:56 → 3SCARD 12:41 → 2SICU 20:21 → 3SCARD 07-22 18:44
PROVIDERS: ADMIT Internal Medicine; ATTEND Internal Medicine
PROC: B2111ZZ Fluoroscopy of Multiple Coronary Arteries using Low Osmolar Contrast (ICD-10-PCS; 2019-07-19)
PROC: 4A023N7 Measurement of Cardiac Sampling and Pressure, Left Heart, Percutaneous Approach (ICD-10-PCS; 2019-07-19)
PROC: 0270346 Dilation of Coronary Artery, One Artery, Bifurcation, with Drug-eluting Intraluminal Device, Percutaneous Approach (ICD-10-PCS; principal; 2019-07-19 17:18)
PROC: 02C03Z6 Extirpation of Matter from Coronary Artery, One Artery, Bifurcation, Percutaneous Approach (ICD-10-PCS; 2019-07-19 17:18)
PROC: 3E033PZ Introduction of Platelet Inhibitor into Peripheral Vein, Percutaneous Approach (ICD-10-PCS; 2019-07-19 17:18)
PROC: 3E03317 Introduction of Other Thrombolytic into Peripheral Vein, Percutaneous Approach (ICD-10-PCS; 2019-07-19 17:18)
PROC: B2101ZZ Fluoroscopy of Single Coronary Artery using Low Osmolar Contrast (ICD-10-PCS; 2019-07-20)
DX: I21.4 Non-ST elevation (NSTEMI) myocardial infarction (principal); I50.32 Chronic diastolic (congestive) heart failure; I11.0 Hypertensive heart disease with heart failure; E11.9 Type 2 diabetes mellitus without complications; F10.10 Alcohol abuse, uncomplicated; I25.10 Atherosclerotic heart disease of native coronary artery without angina pectoris; R00.1 Bradycardia, unspecified; E78.5 Hyperlipidemia, unspecified; T46.4X6A Underdosing of angiotensin-converting-enzyme inhibitors, initial encounter; Z91.120 Patient's intentional underdosing of medication regimen due to financial hardship; F17.210 Nicotine dependence, cigarettes, uncomplicated; Z71.6 Tobacco abuse counseling; Z87.442 Personal history of urinary calculi; Z90.49 Acquired absence of other specified parts of digestive tract; Z96.651 Presence of right artificial knee joint; Z86.59 Personal history of other mental and behavioral disorders; Z98.890 Other specified postprocedural states; Z88.8 Allergy status to other drugs, medicaments and biological substances; Z83.3 Family history of diabetes mellitus; Z82.49 Family history of ischemic heart disease and other diseases of the circulatory system; Y63.6 Underdosing and nonadministration of necessary drug, medicament or biological substance
CPT/HCPCS: 36415; 71045; 80048; 80053; 80061; 83036; 83690; 83735; 84484; 85025; 85347; 85610; 85730; 92921; 93005; 93306; 93454; 93458; 93799; 96365; 96366; 96376; 99291; C1874

== ENCOUNTER 2021-09-27 11:14 | Inpatient (IN) | payer BC, OTHER ==
--- NOTE | 2021-09-27 12:25 | US ---
EXAMINATION TYPE: US venous doppler duplex LE RT DATE OF EXAM: 09/27/2021 12:11 PM COMPARISON: NONE CLINICAL HISTORY: pain. Right leg pain SIDE PERFORMED: Right TECHNIQUE: The lower extremity deep venous system is examined utilizing real time linear array sonog chantel with graded compression, doppler sonography and color-flow sonography. VESSELS IMAGED: Common Femoral Vein Deep Femoral Vein Greater Saphenous Vein * Femoral Vein Popliteal Vein Small Saphenous Vein * Proximal Calf Veins (* superficial vessels) Right Leg: Positive for DVT from mid femoral vein through proximal calf veins IMPRESSION: 1. Exam is positive for acute DVT right lower extremity.
[2021-09-27] MEDS ORDERED: SODIUM CHLORIDE 0.9% 500 ML 500 ML IV ONE (12:53)
[2021-09-27 13:45] LABS: ALT 15 U/L (4-49); AST 19 U/L (17-59); African American GFR (CKD) >90 (>60 ml/min/1.73 sqM); Alkaline Phosphatase 46 U/L (38-126); Anion Gap 16 mmol/L; Blood Urea Nitrogen 14 mg/dL (9-20); Calcium 9.1 mg/dL (8.4-10.2); Carbon Dioxide 19 mmol/L (22-30); Chloride 99 mmol/L (98-107); Glucose 304 mg/dL (74-99); Non-African American GFR(CKD) >90 (>60 ml/min/1.73 sqM); Potassium 3.9 mmol/L (3.5-5.1); Sodium 134 mmol/L (137-145); Total Bilirubin 0.8 mg/dL (0.2-1.3); Total Protein 6.9 g/dL (6.3-8.2)
[2021-09-27 13:55] LABS: Partial Thromboplastin Time 24.7 sec (22.0-30.0); Prothrombin Time 10.5 sec (9.0-12.0)
[2021-09-27 13:57] LABS: Basophils % (A) 0 %; Eosinophils % (A) 1 %; HCT 44.3 % (39.0-53.0); HGB 15.2 gm/dL (13.0-17.5); Lymphocytes # (A) 0.9 k/uL (1.0-4.8); Lymphocytes % (A) 12 %; MCH 34.2 pg (25.0-35.0); MCHC 34.3 g/dL (31.0-37.0); MCV 99.7 fL (80.0-100.0); Mean Platelet Volume 8.1; Monocytes # (A) 0.4 k/uL (0-1.0); Monocytes % (A) 6 %; Neutrophils # (A) 6.1 k/uL (1.3-7.7); Neutrophils % (A) 80 %; Platelet Count 131 k/uL (150-450); RBC 4.44 m/uL (4.30-5.90); RDW 12.6 % (11.5-15.5); WBC 7.6 k/uL (3.8-10.6)
--- NOTE | 2021-09-27 14:52 | CT ---
CT CHEST FOR PULMONARY EMBOLISM. EXAMINATION TYPE: CT chest angio for PE DATE OF EXAM: 09/27/2021 INDICATION: Tachycardia, positive DVT CT DLP: 432.9 mGycm, Automated exposure control for dose reduction was used. CONTRAST: Patient injected with 100, wasted 19 mL of Isovue 370. COMPARISON: None TECHNIQUE: CT of the chest is performed on a spiral scan at 2 mm thick sections. Study is performed with intravenous contrast timed for evaluation for pulmonary embolism. This will limit additional po rtions of the evaluation. 3-D MIP images reconstructed by the technologist are reviewed on the compu ter in the coronal and sagittal planes. FINDINGS: Large embolus is lodged within the proximal tertiary right lower lobe pulmonary artery. Series 401 im age 74 No mediastinal or hilar adenopathy enlarged by CT criteria is evident. The ascending aorta diameter at the level of the main pulmonary artery is 4.4 cm. The main pulmonary artery diameter at the bifur cation is 3.2 cm. Lung windows are clear. No suspicious infiltrates. Limited CT section through the upper abdomen are unremarkable. IMPRESSIONS: 1. Large right lower lobe pulmonary embolism.
[2021-09-27] MEDS ORDERED: HEPARIN SODIUM 1,000 UN/ML (10ML VL) IV PRN (14:54)
[2021-09-27] MEDS ORDERED: HEPARIN SODIUM 1,000 UN/ML (10ML VL) IV ONE (14:54)
--- NOTE | 2021-09-27 15:11 | ED ---
Extremity Problem HPI - General Chief complaint: Extremity Problem,Nontraumatic Stated complaint: rt leg pain/swelling Time Seen by Provider: 09/27/21 11:38 Source: patient, RN notes reviewed Mode of arrival: wheelchair Limitations: no limitations - History of Present Illness Initial comments: 61-year-old male presents emergency Department with chief complaint of right leg swelling. Patient states the pain and swelling started last night states is in this thigh down into his calf. Patient states that he has no back pain denies any bowel bladder incontinence or retentionno saddle anesthesias. Patient has no current chest pain or shortness of breath. He doesn't he has underlying lung disease. Patient has no fevers or chills no other complaints no history DVT or PE. - Related Data Previous Rx's Medication Instructions Recorded lisinopriL [Zestril] 10 mg PO DAILY #30 tab 07/23/19 Allergies Allergy/AdvReac Type Severity Reaction Status Date / Time insulin detemir Allergy Anaphylaxis Verified 09/27/21 14:08 [From Levemir] Review of Systems ROS Statement: Those systems with pertinent positive or pertinent negative responses have been documented in the HPI. ROS Other: All systems not noted in ROS Statement are negative. Past Medical History Past Medical History: Diabetes Mellitus, Hyperlipidemia, Hypertension Additional Past Medical History / Comment(s): kidney stones History of Any Multi-Drug Resistant Organisms: None Reported Past Surgical History: Cholecystectomy, Orthopedic Surgery Additional Past Surgical History / Comment(s): RIGHT KNEE REPLACED x3, LEFT ROTATOR CUFF, Past Anesthesia/Blood Transfusion Reactions: No Reported Reaction Past Psychological History: ADD/ADHD, Depression Smoking Status: Current every day smoker Past Alcohol Use History: Abuse, Heavy Past Drug Use History: None Reported - Past Family History Father Family Medical History: Diabetes Mellitus Additional Family Medical History / Comment(s): CABG Mother Family Medical History: Diabetes Mellitus General Exam Limitations: no limitations General appearance: alert, in no apparent distress Head exam: Present: atraumatic, normocephalic, normal inspection Eye exam: Present: normal appearance, PERRL, EOMI. Absent: scleral icterus, conjunctival injection, periorbital swelling ENT exam: Present: normal exam, normal oropharynx, mucous membranes moist Neck exam: Present: normal inspection, full ROM. Absent: tenderness, meningismus, lymphadenopathy Respiratory exam: Present: normal lung sounds bilaterally. Absent: respiratory distress, wheezes, rales, rhonchi, stridor Cardiovascular Exam: Present: normal rhythm, tachycardia, normal heart sounds. Absent: systolic murmur, diastolic murmur, rubs, gallop, clicks Extremities exam: Present: other (Right leg there is notable swelling, pulses are palpable, tenderness noted) Course Vital Signs 09/27/21 09/27/21 11:31 12:33 Temperature 97.8 F Pulse Rate 117 H 109 H Respiratory 20 20 Rate Blood Pressure 121/76 151/80 O2 Sat by Pulse 95 98 Oximetry Medical Decision Making - Medical Decision Making 61-year-old presented for leg pain. Patient up having positive DVT, CTA of the chest shows evidence of large pulmonary embolism. Patient will be admitted for IV heparin, further evaluation. - Lab Data Result diagrams: 09/27/21 13:17 09/27/21 13:17 Lab Results 09/27/21 09/27/21 09/27/21 Range/Units 13:17 13:17 13:17 WBC 7.6 (3.8-10.6) k/uL RBC 4.44 (4.30-5.90) m/uL Hgb 15.2 (13.0-17.5) gm/dL Hct 44.3 (39.0-53.0) % MCV 99.7 (80.0-100.0) fL MCH 34.2 (25.0-35.0) pg MCHC 34.3 (31.0-37.0) g/dL RDW 12.6 (11.5-15.5) % Plt Count 131 L (150-450) k/uL MPV 8.1 Neutrophils % 80 % Lymphocytes % 12 % Monocytes % 6 % Eosinophils % 1 % Basophils % 0 % Neutrophils # 6.1 (1.3-7.7) k/uL Lymphocytes # 0.9 L (1.0-4.8) k/uL Monocytes # 0.4 (0-1.0) k/uL Eosinophils # 0.0 (0-0.7) k/uL Basophils # 0.0 (0-0.2) k/uL PT 10.5 (9.0-12.0) sec INR 1.0 (<1.2) APTT 24.7 (22.0-30.0) sec Sodium 134 L (137-145) mmol/L Potassium 3.9 (3.5-5.1) mmol/L Chloride 99 (98-107) mmol/L Carbon Dioxide 19 L (22-30) mmol/L Anion Gap 16 mmol/L BUN 14 (9-20) mg/dL Creatinine 0.63 L (0.66-1.25) mg/dL Est GFR (CKD-EPI)AfAm >90 (>60 ml/min/1.73 sqM) Est GFR (CKD-EPI)NonAf >90 (>60 ml/min/1.73 sqM) Glucose 304 H (74-99) mg/dL Calcium 9.1 (8.4-10.2) mg/dL Total Bilirubin 0.8 (0.2-1.3) mg/dL AST 19 (17-59) U/L ALT 15 (4-49) U/L Alkaline Phosphatase 46 (38-126) U/L Troponin I (0.000-0.034) ng/mL Total Protein 6.9 (6.3-8.2) g/dL Albumin 4.0 (3.5-5.0) g/dL 09/27/21 Range/Units 13:17 WBC (3.8-10.6) k/uL RBC (4.30-5.90) m/uL Hgb (13.0-17.5) gm/dL Hct (39.0-53.0) % MCV (80.0-100.0) fL MCH (25.0-35.0) pg MCHC (31.0-37.0) g/dL RDW (11.5-15.5) % Plt Count (150-450) k/uL MPV Neutrophils % % Lymphocytes % % Monocytes % % Eosinophils % % Basophils % % Neutrophils # (1.3-7.7) k/uL Lymphocytes # (1.0-4.8) k/uL Monocytes # (0-1.0) k/uL Eosinophils # (0-0.7) k/uL Basophils # (0-0.2) k/uL PT (9.0-12.0) sec INR (<1.2) APTT (22.0-30.0) sec Sodium (137-145) mmol/L Potassium (3.5-5.1) mmol/L Chloride (98-107) mmol/L Carbon Dioxide (22-30) mmol/L Anion Gap mmol/L BUN (9-20) mg/dL Creatinine (0.66-1.25) mg/dL Est GFR (CKD-EPI)AfAm (>60 ml/min/1.73 sqM) Est GFR (CKD-EPI)NonAf (>60 ml/min/1.73 sqM) Glucose (74-99) mg/dL Calcium (8.4-10.2) mg/dL Total Bilirubin (0.2-1.3) mg/dL AST (17-59) U/L ALT (4-49) U/L Alkaline Phosphatase (38-126) U/L Troponin I <0.012 (0.000-0.034) ng/mL Total Protein (6.3-8.2) g/dL Albumin (3.5-5.0) g/dL Critical Care Time Critical Care Time: Yes Total Critical Care Time: 35 Disposition Clinical Impression: Deep vein thrombosis (DVT) of lower extremity, Pulmonary embolism Disposition: ADMITTED IP TO THIS HOSP Condition: Serious Referrals: Mark Martinez MD [Primary Care Provider] - 1-2 days
[2021-09-27] MEDS: HEPARIN SOD,PORK IN 0.45% NACL 25,000 UNIT in 0.45% NACL 1 250ML.BAG IV SCH (15:26)
[2021-09-27] MEDS ORDERED: NALOXONE 0.4 MG/ML 1 ML VIAL IV PRN (15:41)
[2021-09-28] MEDS: NICOTINE 21MG/24HR PATCH TRANSDERM SCH ×2 (00:45→07:47)
[2021-09-28] MEDS: HEPARIN SOD,PORK IN 0.45% NACL 25,000 UNIT in 0.45% NACL 1 250ML.BAG IV SCH (05:23)
[2021-09-28 07:43] LABS: Basophils % (A) 0 %; Eosinophils # (A) 0.2 k/uL (0-0.7); Eosinophils % (A) 3 %; HCT 42.4 % (39.0-53.0); Lymphocytes # (A) 1.3 k/uL (1.0-4.8); Lymphocytes % (A) 20 %; MCH 32.8 pg (25.0-35.0); MCV 99.3 fL (80.0-100.0); Monocytes # (A) 0.5 k/uL (0-1.0); Monocytes % (A) 8 %; Neutrophils # (A) 4.6 k/uL (1.3-7.7); Neutrophils % (A) 69 %; Platelet Count 128 k/uL (150-450); RBC 4.27 m/uL (4.30-5.90); RDW 11.8 % (11.5-15.5); WBC 6.7 k/uL (3.8-10.6)
[2021-09-28 07:59] LABS: African American GFR (CKD) >90 (>60 ml/min/1.73 sqM); Anion Gap 5 mmol/L; Blood Urea Nitrogen 13 mg/dL (9-20); Calcium 8.4 mg/dL (8.4-10.2); Carbon Dioxide 25 mmol/L (22-30); Chloride 100 mmol/L (98-107); Glucose 273 mg/dL (74-99); Non-African American GFR(CKD) >90 (>60 ml/min/1.73 sqM); Sodium 130 mmol/L (137-145)
[2021-09-28 10:09] VITALS: RESP 18
[2021-09-28 11:34] VITALS: TEMP 98.1
--- NOTE | 2021-09-28 12:26 | P.HPIM ---
History of Present Illness H&P Date: 09/27/21 This is a 61-year-old male who presented to the emergency department for right leg pain and increased swelling and discomfort. Patient has a history of borderline diabetes mellitus, hyperlipidemia, hypertension, past medical history of kidney stones, depression, ADD, ADHD, current every day tobacco user and drinks daily alcohol and denies any illicit drug use. 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 Patient reports recently getting his insurance back and has not been compliant with medications due to no insurance. Patient denies any previous history of DVT or PE, denies any recent long distance traveling or recent weight loss or injury or trauma to the right lower extremity. Patient denies any chest pain or shortness of breath and patient underwent venous Doppler which showed positive for DVT from mid femoral vein to the proximal calf veins, CT of the chest was also ordered which showed large right lower lobe pulmonary embolism patient is being started on IV heparin with vascular surgery and pulmonary consulted. Patient does admit to drinking daily at least a pint of liquor over the last few days and will monitor closely for any signs of withdrawal. Patient is not actively withdrawing at this time. Patient denies any recent sick contacts and was not vaccinated for COVID-19. Labs: WBC is 7.6, hemoglobin is 15.2, platelets are 131, INR 1.0, sodium 134, potassium 3.9, BUN 14, creatinine 0.63, calcium 9.1, troponin negative at 0.012, COVID-19 was not detected Review of systems: Constitutional: reports of fatigue, no reports of fever, or chills Cardiovascular: No reports of chest pain or palpitations Respiratory: No reports of shortness of breath or cough GI: No reports of nausea, vomiting, or diarrhea, reports continued decreased appetite : No reports of dysuria or retention Neurovascular: No reports of weakness or numbness All medications have been reviewed Active Medications Heparin Sodium (Porcine) (Heparin Sodium 1,000 Un/Ml (10ml Vl)) 0 unit IV PER P ROTOCOL PRN; Protocol PRN Reason: Low PTT Heparin Sodium/Sodium Chloride (25,000 unit/ Sodium Chloride) 250 mls @ 18.37 mls/hr IV .[id number] [facility]; Protocol Last Admin: 09/28/21 05:23 Dose: 18 units/kg/hr, 18.37 mls/hr Documented by: Naloxone HCl (Naloxone 0.4 Mg/Ml 1 Ml Vial) 0.2 mg IV Q2M PRN PRN Reason: Opioid Reversal Nicotine (Nicotine 21mg/24hr Patch) 1 patch TRANSDERM DAILY AUTUMN Last Admin: 09/28/21 00:45 Dose: 1 patch Documented by: Physical Exam: Gen: This is 61-year-old male, alert and oriented 3. HEENT: Head is atraumatic, normocephalic. Pupils equal, round. Sclerae is anicteric. NECK: Supple. No JVD. No lymphadenopathy. No thyromegaly. LUNGS: Diminished breath sounds on the right more than left with no wheezing or rhonchi noted. No intercostal retractions. HEART: S1, S2 are muffled ABDOMEN: Soft. Obese. Bowel sounds are present. No masses. No tenderness. EXTREMITIES: No pedal edema. No calf tenderness. right lower extremity tenderness noted on palpation NEUROLOGICAL: Patient is awake, alert and oriented 3, no focal deficit noted Assessment: Right lower extremity DVT Large right lower lobe pulmonary embolism Mild hyponatremia Heparin monitoring Diabetes mellitus, borderline per patient and currently diet controlled Hyperlipidemia Hypertension Continued ongoing nicotine dependence History of alcoholism, with relapse most recently admits to drinking approximately 1 pint per day GI prophylaxis DVT prophylaxis Plan: Recommend to continue with current medications and await pulmonary and vascular consultation. Patient was started on IV heparin for right leg DVT and also right pulmonary embolism. We'll consult case management to verify coverage of oral anticoagulant as he will more than likely need anticoagulation for a minimum of 3 months. Patient to follow-up outpatient with hematology for further testing once discharged. Patient admits to recently started drinking at least a pint of liquor per day and will monitor closely for any withdrawal symptoms. Patient is not actively withdrawing at this time. Patient also reports he is borderline diabetic and has not been on any medication for diabetes and following diet guidelines although blood sugars are elevated and will order hemoglobin A1c and initiate sliding scale and monitor Accu-Cheks before meals and at bedtime. Will initiate oral diabetic agents on discharge as patient recently underwent CT with contrast. Recommend repeat labs in the morning and will continue to monitor closely. Prognosis remains guarded with multiple complex medical issues noted. Possible discharge in 24-48 hours. Review of Systems Constitutional: Denies chills, Denies fever Cardiovascular: Denies chest pain, Denies shortness of breath Respiratory: Denies cough Gastrointestinal: Denies abdominal pain, Denies diarrhea, Denies nausea, Denies vomiting Musculoskeletal: Denies myalgias Integumentary: Denies pruritus, Denies rash Neurological: Denies numbness, Denies weakness Psychiatric: Denies anxiety, Denies depression Endocrine: Denies fatigue, Denies weight change Past Medical History Past Medical History: Diabetes Mellitus, Hyperlipidemia, Hypertension Additional Past Medical History / Comment(s): kidney stones History of Any Multi-Drug Resistant Organisms: None Reported Past Surgical History: Cholecystectomy, Orthopedic Surgery Additional Past Surgical History / Comment(s): RIGHT KNEE REPLACED x3, LEFT ROTATOR CUFF, Past Anesthesia/Blood Transfusion Reactions: No Reported Reaction Past Psychological History: ADD/ADHD, Depression Smoking Status: Current every day smoker Past Alcohol Use History: Abuse, Heavy Past Drug Use History: None Reported - Past Family History Father Family Medical History: Diabetes Mellitus Additional Family Medical History / Comment(s): CABG Mother Family Medical History: Diabetes Mellitus Medications and Allergies Home Medications Medication Instructions Recorded Confirmed Type lisinopriL [Zestril] 10 mg PO DAILY #30 tab 07/23/19 09/27/21 Rx Apixaban [Eliquis Starter Pack 5 - 10 mg PO DIRECTED 30 Days 09/28/21 Rx (for VTE)] #1 each Allergies Allergy/AdvReac Type Severity Reaction Status Date / Time insulin detemir Allergy Anaphylaxis Verified 09/27/21 14:08 [From Levemir] Physical Exam Vitals: Vital Signs Temp Pulse Resp BP Pulse Ox 09/27/21 15:45 99 18 118/71 95 09/27/21 12:33 109 H 20 151/80 98 09/27/21 11:31 97.8 F 117 H 20 121/76 95 Intake and Output 09/27/21 09/27/21 09/27/21 06:59 14:59 22:59 Other: Weight 102.058 kg Results CBC & Chem 7: 09/28/21 07:11 09/28/21 07:11 Labs: Abnormal Lab Results - Last 24 Hours (Table) 09/27/21 09/27/21 Range/Units 13:17 13:17 Plt Count 131 L (150-450) k/uL Lymphocytes # 0.9 L (1.0-4.8) k/uL Sodium 134 L (137-145) mmol/L Carbon Dioxide 19 L (22-30) mmol/L Creatinine 0.63 L (0.66-1.25) mg/dL Glucose 304 H (74-99) mg/dL Thrombosis Risk Factor Assmnt - DVT/VTE Prophylaxis DVT/VTE Prophylaxis: Pharmacologic Prophylaxis ordered Assessment and Plan Time with Patient: Greater than 30
[2021-09-28] MEDS ORDERED: INSULIN ASPART (NovoLOG) 100 UNIT/ML VIAL SQ SCH (12:30)
[2021-09-28 12:36] LABS: Glucose,Whole Blood 279 mg/dL (75-99)
--- NOTE | 2021-09-28 13:42 | P.GSCN ---
History of Present Illness Consult date: 09/28/21 Reason for Consult: Pulmonary embolism, lower extremity DVT Requesting physician: Zachery Valverde History of present illness: This a 61-year-old man who presented to the emergency department yesterday with complaints of right lower extremity pain and swelling. He states he started having pain on Sunday or Sunday while at work. It progressively got worse where he had shooting pains down his leg and throbbing in his legs which was described like a charley horse. He had a CT angiogram of the chest that showed a large right lower lobe pulmonary embolism. He had no elevations in his troponins. He denies any shortness of breath, chest pain. He states he has had no recent surgeries, no history of blood clots in the past, and no family history of clotting disorders or clotting disorders himself. He states he's been working, no recent traveling. He is a smoker for the past 45 years. Patient states he had no recent COVID-19 infection, he has not vaccinated. Vital signs are stable oxygen saturation is 95 and 99% on room air. Patient is afebrile. Review of Systems 14 point review of systems was completed all pertinent positives and negatives as stated in the HPI Past Medical History Past Medical History: Diabetes Mellitus, Hyperlipidemia, Hypertension Additional Past Medical History / Comment(s): kidney stones History of Any Multi-Drug Resistant Organisms: None Reported Past Surgical History: Cholecystectomy, Orthopedic Surgery Additional Past Surgical History / Comment(s): RIGHT KNEE REPLACED x3, LEFT ROTATOR CUFF, Past Anesthesia/Blood Transfusion Reactions: No Reported Reaction Past Psychological History: ADD/ADHD, Depression Smoking Status: Current every day smoker Past Alcohol Use History: Abuse, Heavy Past Drug Use History: None Reported - Past Family History Father Family Medical History: Diabetes Mellitus Additional Family Medical History / Comment(s): CABG Mother Family Medical History: Diabetes Mellitus Medications and Allergies Home Medications Medication Instructions Recorded Confirmed Type lisinopriL [Zestril] 10 mg PO DAILY #30 tab 07/23/19 09/27/21 Rx Apixaban [Eliquis Starter Pack 5 - 10 mg PO DIRECTED 30 Days 09/28/21 Rx (for VTE)] #1 each Nicotine 21Mg/24Hr Patch [Habitrol] 1 patch TRANSDERM DAILY #30 patch 09/28/21 Rx glipiZIDE [Glucotrol] 5 mg PO AC-BID #60 tab 09/28/21 Rx metFORMIN HCL 500 mg PO BID 30 Days #60 tablet 09/28/21 Rx Allergies Allergy/AdvReac Type Severity Reaction Status Date / Time insulin detemir Allergy Anaphylaxis Verified 09/27/21 14:08 [From Levemir] Surgical - Exam Vital Signs Temp Pulse Resp BP Pulse Ox 97.8 F 117 H 20 121/76 95 09/27/21 11:31 09/27/21 11:31 09/27/21 11:31 09/27/21 11:31 09/27/21 11:31 General appearance: The patient is alert, oriented, appears in no acute distress. HET: Head is normocephalic and atraumatic. Pupils are equal and reactive. Oropharynx is clear without lesions. Neck: Supple without lymphadenopathy. Trachea midline. Heart: S1 S2. Regular rate and rhythm. Lungs: Equal expansion diminished breath sounds. No crackles or wheezes are heard. Abdomen: Soft, nontender, nondistended. Extremities: Normal skin color and turgor. Right lower extremity with edema and tenderness to palpation along the calf. Palpable DP and PT pulses bilaterally. Neurological: No focal deficits. Strength and sensation are grossly intact. Results - Labs 09/28/21 07:11 09/28/21 07:11 Abnormal Lab Results - Last 24 Hours (Table) 09/27/21 09/27/21 09/27/21 Range/Units 13:17 13:17 20:53 RBC (4.30-5.90) m/uL Plt Count 131 L (150-450) k/uL Lymphocytes # 0.9 L (1.0-4.8) k/uL APTT 45.3 H (22.0-30.0) sec Sodium 134 L (137-145) mmol/L Carbon Dioxide 19 L (22-30) mmol/L Creatinine 0.63 L (0.66-1.25) mg/dL Glucose 304 H (74-99) mg/dL POC Glucose (mg/dL) (75-99) mg/dL 09/28/21 09/28/21 09/28/21 Range/Units 07:11 07:11 07:11 RBC 4.27 L (4.30-5.90) m/uL Plt Count 128 L (150-450) k/uL Lymphocytes # (1.0-4.8) k/uL APTT 42.0 H (22.0-30.0) sec Sodium 130 L (137-145) mmol/L Carbon Dioxide (22-30) mmol/L Creatinine (0.66-1.25) mg/dL Glucose 273 H (74-99) mg/dL POC Glucose (mg/dL) (75-99) mg/dL 09/28/21 Range/Units 12:35 RBC (4.30-5.90) m/uL Plt Count (150-450) k/uL Lymphocytes # (1.0-4.8) k/uL APTT (22.0-30.0) sec Sodium (137-145) mmol/L Carbon Dioxide (22-30) mmol/L Creatinine (0.66-1.25) mg/dL Glucose (74-99) mg/dL POC Glucose (mg/dL) 279 H (75-99) mg/dL Diabetes panel 09/27/21 09/28/21 Range/Units 13:17 07:11 Sodium 134 L 130 L (137-145) mmol/L Potassium 3.9 4.0 (3.5-5.1) mmol/L Chloride 99 100 (98-107) mmol/L Carbon Dioxide 19 L 25 (22-30) mmol/L BUN 14 13 (9-20) mg/dL Creatinine 0.63 L 0.67 (0.66-1.25) mg/dL Glucose 304 H 273 H (74-99) mg/dL Calcium 9.1 8.4 (8.4-10.2) mg/dL AST 19 (17-59) U/L ALT 15 (4-49) U/L Alkaline Phosphatase 46 (38-126) U/L Total Protein 6.9 (6.3-8.2) g/dL Albumin 4.0 (3.5-5.0) g/dL Calcium panel 09/27/21 09/28/21 Range/Units 13:17 07:11 Calcium 9.1 8.4 (8.4-10.2) mg/dL Albumin 4.0 (3.5-5.0) g/dL Pituitary panel 09/27/21 09/28/21 Range/Units 13:17 07:11 Sodium 134 L 130 L (137-145) mmol/L Potassium 3.9 4.0 (3.5-5.1) mmol/L Chloride 99 100 (98-107) mmol/L Carbon Dioxide 19 L 25 (22-30) mmol/L BUN 14 13 (9-20) mg/dL Creatinine 0.63 L 0.67 (0.66-1.25) mg/dL Glucose 304 H 273 H (74-99) mg/dL Calcium 9.1 8.4 (8.4-10.2) mg/dL Adrenal panel 09/27/21 09/28/21 Range/Units 13:17 07:11 Sodium 134 L 130 L (137-145) mmol/L Potassium 3.9 4.0 (3.5-5.1) mmol/L Chloride 99 100 (98-107) mmol/L Carbon Dioxide 19 L 25 (22-30) mmol/L BUN 14 13 (9-20) mg/dL Creatinine 0.63 L 0.67 (0.66-1.25) mg/dL Glucose 304 H 273 H (74-99) mg/dL Calcium 9.1 8.4 (8.4-10.2) mg/dL Total Bilirubin 0.8 (0.2-1.3) mg/dL AST 19 (17-59) U/L ALT 15 (4-49) U/L Alkaline Phosphatase 46 (38-126) U/L Total Protein 6.9 (6.3-8.2) g/dL Albumin 4.0 (3.5-5.0) g/dL - Imaging Comments: As stated in the HPI CT scan - chest: report reviewed Assessment and Plan Assessment: 1. Right lower lobe pulmonary embolism with no evidence of right heart strain. Echocardiogram was performed and Dr. Ng read the echo report and states that right ventricle was not enlarged and there was no evidence of right heart strain. 2. Right lower extremity DVT 3. Smoker 4. Type 2 diabetes mellitus 5. Hypertension Plan: 1. Echocardiogram ordered 2. May transition to DOAC of your choice 3. There is no indication for any vascular surgical intervention Thank you for this consultation. The impression and plan of care has been dictated as directed. Dr. Kim I performed a history and examination of this patient, discussed the same with the dictator. I agree with the dictator's note ,documented as a scribe. Any additional findings or plans will be noted.
[2021-09-28] MEDS ORDERED: APIXABAN 5 MG TAB PO SCH (13:45)
--- NOTE | 2021-09-28 14:44 | P.CNPUL ---
History of Present Illness Consult date: 09/28/21 Requesting physician: Keri Messer Reason for consult: other Chief complaint: Right leg cramping History of present illness: This is a 61-year-old white male patient with past medical history of borderline diabetes mellitus, hypertension, hyperlipidemia coronary artery disease with previous history of stent placement, current and ongoing history of smoking, patient carries a [id number] smoking history, attention deficit disorder, depression, and osteoarthritis who came into the emergency department on 09/27/2021 for evaluation of right leg pain and swelling which apparently started on Sunday night, and felt like cramping in his diet and down into his calf. Denies any shortness of breath, denies any coughing, no fever or chills. He had no lightheadedness, no palpitations, no chest discomfort. Has no previous history of PE or DVT, no underlying history of chronic lung disease. Patient denies any family history of PE or DVT, his lower extremity Doppler of the right leg was positive for DVT from the mid femoral vein through the proximal calf veins, and patient was started on a heparin fusion. CT angiogram of the chest showed a large right lower lobe pulmonary embolism, there was no mediastinal or hilar adenopathy, the lung windows were clear, there were no suspicious infiltrates. Patient tested negative for COVID-19, his blood work showed a white blood cell count of 7.6, hemoglobin of 15.2, INR of 1.0, sodium is 134, potassium 3.8, chloride is 99, CO2 is 19, anion gap was 16, BUN was 14, creatinine 0.63, glucose level was 304, LFTs were within normal limits, troponin was less than 0.012. Patient denies any chest pain, denies any pleurisy, no hemoptysis. He was seen by vascular surgery in consultation. Echocardiogram was completed and the verbal report per Dr. KAYCE gN stated no right ventricular strain. Patient was transitioned to [facility] and patient is being discharged home Review of Systems All systems: negative Constitutional: Denies chills, Denies fever Eyes: denies blurred vision, denies pain Ears, nose, mouth and throat: Denies headache, Denies sore throat Cardiovascular: Denies chest pain, Denies shortness of breath Respiratory: Denies cough Gastrointestinal: Denies abdominal pain, Denies diarrhea, Denies nausea, Denies vomiting Musculoskeletal: Denies myalgias Integumentary: Denies pruritus, Denies rash Neurological: Denies numbness, Denies weakness Psychiatric: Denies anxiety, Denies depression Endocrine: Denies fatigue, Denies weight change Past Medical History Past Medical History: Diabetes Mellitus, Hyperlipidemia, Hypertension Additional Past Medical History / Comment(s): kidney stones History of Any Multi-Drug Resistant Organisms: None Reported Past Surgical History: Cholecystectomy, Orthopedic Surgery Additional Past Surgical History / Comment(s): RIGHT KNEE REPLACED x3, LEFT ROTATOR CUFF, Past Anesthesia/Blood Transfusion Reactions: No Reported Reaction Past Psychological History: ADD/ADHD, Depression Smoking Status: Current every day smoker Past Alcohol Use History: Abuse, Heavy Past Drug Use History: None Reported - Past Family History Father Family Medical History: Diabetes Mellitus Additional Family Medical History / Comment(s): CABG Mother Family Medical History: Diabetes Mellitus Medications and Allergies Home Medications Medication Instructions Recorded Confirmed Type lisinopriL [Zestril] 10 mg PO DAILY #30 tab 07/23/19 09/27/21 Rx Apixaban [Eliquis Starter Pack 5 - 10 mg PO DIRECTED 30 Days 09/28/21 Rx (for VTE)] #1 each HYDROcodone/APAP 5-325MG [[place] 1 tab PO Q6HR PRN 3 Days #12 tab 09/28/21 Rx 5-325] Nicotine 21Mg/24Hr Patch [Habitrol] 1 patch TRANSDERM DAILY #30 patch 09/28/21 Rx glipiZIDE [Glucotrol] 5 mg PO AC-BID #60 tab 09/28/21 Rx metFORMIN HCL 500 mg PO BID 30 Days #60 tablet 09/28/21 Rx Allergies Allergy/AdvReac Type Severity Reaction Status Date / Time insulin detemir Allergy Anaphylaxis Verified 09/27/21 14:08 [From Levemir] Physical Exam Vitals: Vital Signs Temp Pulse Resp BP Pulse Ox 09/28/21 10:08 80 18 138/82 97 09/28/21 10:00 98.1 F 77 16 138/82 99 09/28/21 07:45 77 16 127/77 97 09/28/21 05:32 68 18 145/96 95 09/27/21 21:43 80 96 09/27/21 19:41 99 20 147/77 96 09/27/21 17:22 105 H 20 137/93 96 09/27/21 15:45 99 18 118/71 95 Intake and Output 09/27/21 09/28/21 09/28/21 22:59 06:59 14:59 Intake Total 250 66.438 Balance 250 66.438 Intake: Intake, IV Titration 250 66.438 Amount Heparin Sod,Pork in 0.45% 250 66.438 NaCl 25,000 unit In 0.45 % NaCl 1 250ml.bag @ 18 UNITS/KG/HR 18.37 mls/hr IV .[id number] [facility] Rx#: [id number] GENERAL EXAM: Alert, very pleasant, 61-year-old white male, on room air with pulse ox of 99% comfortable in no apparent distress. HEAD: Normocephalic/atraumatic. EYES: Normal reaction of pupils, equal size. Conjunctiva pink, sclera white. NOSE: Clear with pink turbinates. THROAT: No erythema or exudates. NECK: No masses, no JVD, no thyroid enlargement, no adenopathy. CHEST: No chest wall deformity. Symmetrical expansion. LUNGS: Equal air entry with no crackles, wheeze, rhonchi or dullness. CVS: Regular rate and rhythm, normal S1 and S2, no gallops, no murmurs, no rubs ABDOMEN: Soft, nontender. No hepatosplenomegaly, normal bowel sounds, no guarding or rigidity. EXTREMITIES: No clubbing, mild swelling in his left upper leg noted no cyanosis, 2+ pulses and upper and lower extremities. MUSCULOSKELETAL: Muscle strength and tone normal. SPINE: No scoliosis or deformity SKIN: No rashes CENTRAL NERVOUS SYSTEM: Alert and oriented -3. No focal deficits, tone is normal in all 4 extremities. PSYCHIATRIC: Alert and oriented -3. Appropriate affect. Intact judgment and insight. Results - Laboratory Findings CBC and BMP: 09/28/21 07:11 09/28/21 07:11 PT/INR, D-dimer PT 10.5 sec (9.0-12.0) 09/27/21 13:17 INR 1.0 (<1.2) 09/27/21 13:17 Abnormal lab findings: Abnormal Labs 09/27/21 09/27/21 09/27/21 13:17 13:17 20:53 RBC Plt Count 131 L Lymphocytes # 0.9 L APTT 45.3 H Sodium 134 L Carbon Dioxide 19 L Creatinine 0.63 L Glucose 304 H POC Glucose (mg/dL) 09/28/21 09/28/21 09/28/21 07:11 07:11 07:11 RBC 4.27 L Plt Count 128 L Lymphocytes # APTT 42.0 H Sodium 130 L Carbon Dioxide Creatinine Glucose 273 H POC Glucose (mg/dL) 09/28/21 12:35 RBC Plt Count Lymphocytes # APTT Sodium Carbon Dioxide Creatinine Glucose POC Glucose (mg/dL) 279 H - Diagnostic Findings Additional studies: DT angiogram of the chest, and lower extremity Doppler of the right leg Assessment and Plan Plan: Assessment: #1. Unprovoked acute right lower lobe pulmonary embolism without evidence of RV strain, patient was initially started on heparin infusion, and has been transitioned to Eliquis today and be discharged home #2. Acute right lower extremity DVT, unprovoked #3. Chronic and ongoing history of smoking, patient carries a [id number] smoking history #4. Type 2 diabetes mellitus #5. Hypertension #6. No family history of PE or DVT Plan: Continue Eliquis Heparin has been discontinued Echocardiogram showed no evidence of RV strain Patient is breathing comfortably This was an unprovoked DVT/PE, and patient will require lifelong anticoagulation Patient is being discharged home on oral anticoagulation Outpatient follow-up with Dr. Valverde in 3 weeks I performed a history & physical examination of the patient and discussed their management with my nurse practitioner, Nirmala Cannon. I reviewed the nurse practitioner's note and agree with the documented findings and plan of care. Lung sounds are positive for diminished breath sounds throughout the lung perdomo. The findings and the impression was discussed with the patient. I attest to the documentation by the nurse practitioner. Time with Patient: Greater than 30
[2021-09-28 15:03] VITALS: BP 156/98; PULSE 81
--- NOTE | 2021-09-30 08:57 | P.DS ---
Providers Date of admission: 09/27/21 15:41 Expected date of discharge: 09/28/21 Attending physician: Keri Messer Consults: 09/27/21 15:42 Consult Physician Routine Consulting Provider: Khari Pettit Consult Reason/Comments: PE,DVT Do you want consulting provider notified?: Yes Consult Physician Urgent Consulting Provider: Ross Patterson Consult Reason/Comments: PE Do you want consulting provider notified?: Yes Primary care physician: Juan Flores Hospital Course: Final diagnosis Right lower extremity DVT Large right lower lobe pulmonary embolism Mild hyponatremia Heparin monitoring Diabetes mellitus, borderline per patient and currently diet controlled Hyperlipidemia Hypertension Continued ongoing nicotine dependence History of alcoholism, with relapse most recently admits to drinking approximately 1 pint per day GI prophylaxis DVT prophylaxis Discharge disposition Patient is being discharged in a stable condition with guarded prognosis to home. Patient will follow-up with Dr. Martinez in the outpatient setting upon discharge. Patient is to also follow up with pulmonary, hematology, vascular surgery in the outpatient setting as discussed. Patient will continue on Eliquis 10 mg twice daily for 1 week and then titrate down to 5 mg twice daily thereafter. Total time taken is greater than 35 minutes. Hospital course This is a 61-year-old male who came in with some increased right lower extremity pain and swelling and was found to have right lower extremity DVT along with right lobe PE and was started on IV heparin. Patient underwent 2-D echo which shows no right heart strain. Patient transitioned to oral Eliquis and will continue 10 mg twice daily for 1 week and then titrate down to 5 mg twice daily thereafter. Patient will likely need lifelong anticoagulation. This will be addressed and discussed further outpatient with pulmonary and hematology. Recommend close outpatient follow-up with pulmonary along with vascular surgery and hematology in the outpatient setting. Patient encouraged to discontinue tobacco use and avoid alcohol intake. Currently no reports of chest pain, shortness of breath, or palpitations. Patient is afebrile. No reports of nausea or vomiting and patient is tolerating diet. Patient will be discharged home today. Physical Exam: Gen: This is 61-year-old male, alert and oriented 3. HEENT: Head is atraumatic, normocephalic. Pupils equal, round. Sclerae is anicteric. NECK: Supple. No JVD. No lymphadenopathy. No thyromegaly. LUNGS: Diminished breath sounds on the right more than left with no wheezing or rhonchi noted. No intercostal retractions. HEART: S1, S2 are muffled ABDOMEN: Soft. Obese. Bowel sounds are present. No masses. No tenderness. EXTREMITIES: No pedal edema. No calf tenderness. right lower extremity tenderness noted on palpation NEUROLOGICAL: Patient is awake, alert and oriented 3, no focal deficit noted Please refer to medication reconciliation sheet for a list of medications. Patient Condition at Discharge: Stable Plan - Discharge Summary New Discharge Prescriptions: New Apixaban [Eliquis Starter Pack (for VTE)] 5 - 10 mg PO DIRECTED 30 Days #1 each HYDROcodone/APAP 5-325MG [[place] 5-325] 1 tab PO Q6HR PRN 3 Days #12 tab PRN Reason: Pain glipiZIDE [Glucotrol] 5 mg PO AC-BID #60 tab Nicotine 21Mg/24Hr Patch [Habitrol] 1 patch TRANSDERM DAILY #30 patch metFORMIN HCL 500 mg PO BID 30 Days #60 tablet Continue lisinopriL [Zestril] 10 mg PO DAILY #30 tab Discharge Medication List lisinopriL [Zestril] 10 mg PO DAILY #30 tab 07/23/19 [Rx] Apixaban [Eliquis Starter Pack (for VTE)] 5 - 10 mg PO DIRECTED 30 Days #1 each 09/28/21 [Rx] HYDROcodone/APAP 5-325MG [[place] 5-325] 1 tab PO Q6HR PRN 3 Days #12 tab 09/28/21 [Rx] Nicotine 21Mg/24Hr Patch [Habitrol] 1 patch TRANSDERM DAILY #30 patch 09/28/21 [Rx] glipiZIDE [Glucotrol] 5 mg PO AC-BID #60 tab 09/28/21 [Rx] metFORMIN HCL 500 mg PO BID 30 Days #60 tablet 09/28/21 [Rx] Follow up Appointment(s)/Referral(s): Ross Patterson MD [STAFF PHYSICIAN] - 3 Weeks Ton Varghese MD [STAFF PHYSICIAN] - 6 Weeks Mark Martinez MD [Primary Care Provider] - 1-2 days Khari Pettit DO [STAFF PHYSICIAN] - 1 Week Patient Instructions/Handouts: Pulmonary Embolism (ED), Deep Vein Thrombosis (ED) Activity/Diet/Wound Care/Special Instructions: Dr. Kim to see prior to dc Activity Limited until follow-up Follow-up cardiology outpatient Follow-up pulmonary outpatient Follow-up vascular surgery outpatient Follow-up hematology in 4-6 weeks outpatient Continue taking medications as prescribed Continue consistent carb heart healthy diet Recommend monitor blood sugars before meals and at bedtime and keep a diary for primary care follow-up Follow-up with primary care provider on discharge Continue taking Eliquis 10 mg twice daily for 1 week and then titrate the dose down to 5 mg twice daily thereafter Discharge Disposition: HOME SELF-CARE
[2021-10-05] MEDS ORDERED: APIXABAN 5 MG TAB PO SCH (09:00)
== END 2021-09-28 19:11 | disposition home or self-care (01) | DRG 299 ==
LOC: EC 11:14 → 1SOBS 15:41 → 3SCARD 16:58
PROVIDERS: ADMIT Internal Medicine; ATTEND Internal Medicine
DX: I82.401 Acute embolism and thrombosis of unspecified deep veins of right lower extremity (principal); I26.99 Other pulmonary embolism without acute cor pulmonale; E87.1 Hypo-osmolality and hyponatremia; E11.9 Type 2 diabetes mellitus without complications; Z20.822 Contact with and (suspected) exposure to COVID-19; M19.90 Unspecified osteoarthritis, unspecified site; I25.10 Atherosclerotic heart disease of native coronary artery without angina pectoris; E78.5 Hyperlipidemia, unspecified; F10.20 Alcohol dependence, uncomplicated; F17.210 Nicotine dependence, cigarettes, uncomplicated; F32.A Depression, unspecified; F90.9 Attention-deficit hyperactivity disorder, unspecified type; I10 Essential (primary) hypertension; Z59.7 Insufficient social insurance and welfare support; Z79.84 Long term (current) use of oral hypoglycemic drugs; Z79.899 Other long term (current) drug therapy; Z83.3 Family history of diabetes mellitus; Z91.14 Patient's other noncompliance with medication regimen; Z87.442 Personal history of urinary calculi; Z88.8 Allergy status to other drugs, medicaments and biological substances; Z82.49 Family history of ischemic heart disease and other diseases of the circulatory system; Z96.651 Presence of right artificial knee joint; Z90.49 Acquired absence of other specified parts of digestive tract
CPT/HCPCS: 36415; 71275; 80048; 80053; 83036; 84484; 85025; 85610; 85730; 87635; 93306; 96361; 96374; 99291

== ENCOUNTER 2021-12-26 08:49 | Emergency (ER) | payer BC, OTHER ==
[2021-12-26 08:54] VITALS: TEMP 98.7
--- NOTE | 2021-12-26 09:21 | ED ---
Extremity Problem HPI - General Chief complaint: Extremity Problem,Nontraumatic Stated complaint: rt leg swelling/pain Time Seen by Provider: 12/26/21 08:57 Source: patient, RN notes reviewed Mode of arrival: ambulatory Limitations: no limitations - History of Present Illness Initial comments: 61-year-old male presents emergency Department with chief complaint of right leg swelling and discomfort. Patient states her last few days. Patient does have a history of DVT in September states he is currently on liquids. No chest pain or shortness breath no palpitations. Patient states no some swelling, redness patient states that when he had his blood clot was much worse and he states he always has some swelling noted - Related Data Previous Rx's Medication Instructions Recorded lisinopriL [Zestril] 10 mg PO DAILY #30 tab 07/23/19 Apixaban [Eliquis Starter Pack 5 - 10 mg PO DIRECTED 30 Days 09/28/21 (for VTE)] #1 each HYDROcodone/APAP 5-325MG [[place] 1 tab PO Q6HR PRN 3 Days #12 tab 09/28/21 5-325] Nicotine 21Mg/24Hr Patch [Habitrol] 1 patch TRANSDERM DAILY #30 patch 09/28/21 glipiZIDE [Glucotrol] 5 mg PO AC-BID #60 tab 09/28/21 metFORMIN HCL 500 mg PO BID 30 Days #60 tablet 09/28/21 Cephalexin [Keflex] 500 mg PO Q6HR #40 cap 12/26/21 Allergies Allergy/AdvReac Type Severity Reaction Status Date / Time insulin detemir Allergy Anaphylaxis Verified 12/26/21 08:54 [From Levemir] Review of Systems ROS Statement: Those systems with pertinent positive or pertinent negative responses have been documented in the HPI. ROS Other: All systems not noted in ROS Statement are negative. Past Medical History Past Medical History: Diabetes Mellitus, Hyperlipidemia, Hypertension Additional Past Medical History / Comment(s): kidney stones Last Myocardial Infarction Date:: 2018 History of Any Multi-Drug Resistant Organisms: None Reported Past Surgical History: Cholecystectomy, Orthopedic Surgery Additional Past Surgical History / Comment(s): RIGHT KNEE REPLACED x3, LEFT ROTATOR CUFF, Past Anesthesia/Blood Transfusion Reactions: No Reported Reaction Date of Last Stent Placement:: 07/19/19 Past Psychological History: ADD/ADHD, Depression Smoking Status: Current every day smoker Past Alcohol Use History: Abuse, Heavy Past Drug Use History: Marijuana - Past Family History Father Family Medical History: Diabetes Mellitus Additional Family Medical History / Comment(s): CABG Mother Family Medical History: Diabetes Mellitus Additional Family Medical History / Comment(s): Mother is living. General Exam Limitations: no limitations General appearance: alert, in no apparent distress Head exam: Present: atraumatic, normocephalic, normal inspection Respiratory exam: Present: normal lung sounds bilaterally. Absent: respiratory distress, wheezes, rales, rhonchi, stridor Cardiovascular Exam: Present: regular rate, normal rhythm, normal heart sounds. Absent: systolic murmur, diastolic murmur, rubs, gallop, clicks Extremities exam: Present: other (Right leg swelling, erythema noted, mild tenderness neurovascular intact) Neurological exam: Present: alert Skin exam: Present: warm, dry, intact, normal color. Absent: rash Course Vital Signs 12/26/21 08:52 Temperature 98.7 F Pulse Rate 122 H Respiratory 20 Rate Blood Pressure 167/107 O2 Sat by Pulse 97 Oximetry Medical Decision Making - Medical Decision Making Ultrasound does show popliteal DVT which was present prior patient is on anticoagulant. Patient has no chest pain or shortness breath. Patient may have some redness related to cellulitis. Patient starting antibiotics advised were compression stocking and return for any worsening change in symptoms. Disposition Clinical Impression: Deep vein thrombosis (DVT) of lower extremity, Cellulitis of right leg Disposition: HOME SELF-CARE Condition: Stable Instructions (If sedation given, give patient instructions): Deep Vein Thrombosis (ED), Cellulitis (ED) Additional Instructions: Please return to the Emergency Department if symptoms worsen or any other concerns. Prescriptions: Cephalexin [Keflex] 500 mg PO Q6HR #40 cap Is patient prescribed a controlled substance at d/c from ED?: No Referrals: Mark Martinez MD [Primary Care Provider] - 1-2 days Time of Disposition: 10:47
--- NOTE | 2021-12-26 10:36 | US ---
EXAMINATION TYPE: US venous doppler duplex LE RT DATE OF EXAM: 12/26/2021 9:41 AM COMPARISON: Previous exam dated 09/27/2021 CLINICAL HISTORY: pain. SIDE PERFORMED: Right TECHNIQUE: The lower extremity deep venous system is examined utilizing real time linear array sonog chantel with graded compression, doppler sonography and color-flow sonography. VESSELS IMAGED: Common Femoral Vein Deep Femoral Vein Greater Saphenous Vein * Femoral Vein Popliteal Vein Small Saphenous Vein * Proximal Calf Veins (* superficial vessels) Low-level internal echoes are present within the popliteal vein with lack of compressibility. Right Leg: Positive for DVT, somewhat thready flow in distal popliteal without complete compressibil ity. Popliteal vein shows no flow, unable to compress. IMPRESSION: Positive exam within the right popliteal vein for deep venous thrombosis as noted on prio r ultrasound dated September 27, 2021
[2021-12-26 10:46] VITALS: BP 150/98; PULSE 87; RESP 18
== END 2021-12-26 10:55 | disposition home or self-care (01) ==
LOC: EC 08:49
DX: I82.431 Acute embolism and thrombosis of right popliteal vein (principal); L03.115 Cellulitis of right lower limb; E11.9 Type 2 diabetes mellitus without complications; E78.5 Hyperlipidemia, unspecified; F17.200 Nicotine dependence, unspecified, uncomplicated; I10 Essential (primary) hypertension; I25.2 Old myocardial infarction; Z88.8 Allergy status to other drugs, medicaments and biological substances; Z79.899 Other long term (current) drug therapy; Z79.84 Long term (current) use of oral hypoglycemic drugs; Z79.02 Long term (current) use of antithrombotics/antiplatelets
CPT/HCPCS: 99283

== ENCOUNTER 2022-12-07 12:10 | Emergency (ER) | payer BC, OTHER ==
--- NOTE | 2022-12-07 12:24 | ED ---
General Adult HPI - General Chief complaint: Extremity Problem,Nontraumatic Stated complaint: Right leg pain Time Seen by Provider: 12/07/22 12:15 Source: patient, RN notes reviewed, old records reviewed Mode of arrival: ambulatory Limitations: no limitations - History of Present Illness Initial comments: This is a 62-year-old male who presents emergency Department complaining of some swelling to his her leg and some tenderness in the calf area. Patient states that he had a DVT in that leg before and was on eliquis. Patient states he stopped eliquis about a month ago because of work he is been unable to get back to the doctor. Patient denies any difficulty breathing or chest pain. Patient denies any swelling to the opposite leg. Patient states the pain is posterior calf region. Patient denies any recent fever chills or cough. Patient denies any palpitations. - Related Data Previous Rx's Medication Instructions Recorded lisinopriL [Zestril] 10 mg PO DAILY #30 tab 07/23/19 Apixaban [Eliquis Starter Pack 5 - 10 mg PO DIRECTED 30 Days 09/28/21 (for VTE)] #1 each HYDROcodone/APAP 5-325MG [[place] 1 tab PO Q6HR PRN 3 Days #12 tab 09/28/21 5-325] Nicotine 21Mg/24Hr Patch [Habitrol] 1 patch TRANSDERM DAILY #30 patch 09/28/21 glipiZIDE [Glucotrol] 5 mg PO AC-BID #60 tab 09/28/21 metFORMIN HCL 500 mg PO BID 30 Days #60 tablet 09/28/21 Cephalexin [Keflex] 500 mg PO Q6HR #40 cap 12/26/21 Apixaban [Eliquis Starter Pack 5 - 10 mg PO DIRECTED 30 Days 12/07/22 (for VTE)] #1 each Allergies Allergy/AdvReac Type Severity Reaction Status Date / Time insulin detemir Allergy Anaphylaxis Verified 12/07/22 12:14 [From Levemir] Review of Systems ROS Statement: Those systems with pertinent positive or pertinent negative responses have been documented in the HPI. ROS Other: All systems not noted in ROS Statement are negative. Past Medical History Past Medical History: Diabetes Mellitus, Hyperlipidemia, Hypertension Additional Past Medical History / Comment(s): kidney stones, DVT, PE Last Myocardial Infarction Date:: 2018 History of Any Multi-Drug Resistant Organisms: None Reported Past Surgical History: Cholecystectomy, Joint Replacement, Orthopedic Surgery Additional Past Surgical History / Comment(s): RIGHT KNEE REPLACED x3, LEFT ROTATOR CUFF, Past Anesthesia/Blood Transfusion Reactions: No Reported Reaction Date of Last Stent Placement:: 07/19/19 Past Psychological History: ADD/ADHD, Depression Smoking Status: Current every day smoker Past Alcohol Use History: Abuse, Heavy Past Drug Use History: Marijuana - Past Family History Father Family Medical History: Diabetes Mellitus Additional Family Medical History / Comment(s): CABG Mother Family Medical History: Diabetes Mellitus Additional Family Medical History / Comment(s): Mother is living. General Exam - General Exam Comments Initial Comments: GENERAL: Patient is well-developed and well-nourished. Patient is nontoxic and well- hydrated and is in mild distress. ENT: Neck is soft and supple. No significant lymphadenopathy is noted. Oropharynx is clear. Moist mucous membranes. Neck has full range of motion without eliciting any pain. EYES: The sclera were anicteric and conjunctiva were pink and moist. Extraocular movements were intact and pupils were equal round and reactive to light. Eyelids were unremarkable. PULMONARY: Unlabored respirations. Good breath sounds bilaterally. No audible rales rhonchi or wheezing was noted. CARDIOVASCULAR: There is a regular rate and rhythm without any murmurs gallops or rubs. ABDOMEN: Soft and nontender with normal bowel sounds. SKIN: Skin is clear with no lesions or rashes and otherwise unremarkable. NEUROLOGIC: Patient is alert and oriented x3. Cranial nerves II through XII are grossly intact. Motor and sensory are also intact. Normal speech, volume and content. Symmetrical smile. MUSCULOSKELETAL: Right leg is slightly swollen compared to the left there is no edema. Calf is tender to palpation LYMPHATICS: No significant lymphadenopathy is noted PSYCHIATRIC: Normal psychiatric evaluation. Limitations: no limitations Course Vital Signs 12/07/22 12:11 Temperature 97.7 F Pulse Rate 116 H Respiratory 20 Rate Blood Pressure 192/120 O2 Sat by Pulse 99 Oximetry Medical Decision Making - Medical Decision Making Was pt. sent in by a medical professional or institution (, PA, WEIGHTS AND MEASURES INSPECTOR, urgent care, hospital, or [place] health care facility...) When possible be specific @ -No Did you speak to anyone other than the patient for history (EMS, parent, family, police, friend...)? What history was obtained from this source @ -No Did you review nursing and triage notes (agree or disagree)? Why? @ -I reviewed and agree with nursing and triage notes Were old charts reviewed (outside hosp., previous admission, EMS record, old EKG, old radiological studies, urgent care reports/EKG's, [place] health care facility records)? Report findings @ -No old charts were reviewed Differential Diagnosis (chest pain, altered mental status, abdominal pain women, abdominal pain men, vaginal bleeding, weakness, fever, dyspnea, syncope, headache, dizziness, GI bleed, back pain, seizure, CVA, palpatations, mental health, musculoskeletal)? @ -Pedal edema, DVT, musculoskeletal injury, ligamentous injury EKG interpreted by me (3pts min.). @ -As above X-rays interpreted by me (1pt min.). @ -None done CT interpreted by me (1pt min.). @ -None done U/S interpreted by me (1pt. min.). @ -Ultrasound showed acute DVT What testing was considered but not performed or refused? (CT, X-rays, U/S, labs)? Why? @ -None What meds were considered but not given or refused? Why? @ -None Did you discuss the management of the patient with other professionals (shelley francisco i.e. , PA, WEIGHTS AND MEASURES INSPECTOR, lab, RT, psych nurse, social science instructor, manager recovery, teacher, senior major gifts officer, caseworker protective services)? Give summary @ -No Was smoking cessation discussed for >3mins.? @ -No Was critical care preformed (if so, how long)? @ -No Were there social determinants of health that impacted care today? How? (Homelessness, low income, unemployed, alcoholism, drug addiction, transportation, low edu. Level, literacy, decrease access to med. care, [facility], rehab)? @ -No Was there de-escalation of care discussed even if they declined (Discuss DNR or withdrawal of care, Hospice)? DNR status @ -No What co-morbidities impacted this encounter? (DM, HTN, Smoking, COPD, CAD, Cancer, CVA, ARF, Chemo, Hep., AIDS, mental health diagnosis, sleep apnea, morbid obesity)? @ -None Was patient admitted / discharged? Hospital course, mention meds given and route, prescriptions, significant lab abnormalities, going to OR and other pertinent info. @ -Patient's ultrasound showed a DVT in the right leg I gave the patient does eliquis and sent the patient home on eliquis. Undiagnosed new problem with uncertain prognosis? @ -No Drug Therapy requiring intensive monitoring for toxicity (Heparin, Nitro, Insulin, Cardizem)? @ -No Were any procedures done? @ -No Diagnosis/symptom? @ -Acute DVT Acute, or Chronic, or Acute on Chronic? @ -Acute Uncomplicated (without systemic symptoms) or Complicated (systemic symptoms)? @ -Complicated Side effects of treatment? @ -No Exacerbation, Progression, or Severe Exacerbation? @ -No Poses a threat to life or bodily function? How? (Chest pain, [place], [place], pneumonia, PE, COPD, DKA, ARF, appy, cholecystitis, CVA, Diverticulitis, Homicidal, Suicidal, threat to staff... and all critical care pts) @ -Yes this could lead to potential PE which could lead to severe hypoxia and end organ dysfunction Disposition Clinical Impression: Deep vein thrombosis (DVT) of lower extremity Disposition: HOME SELF-CARE Condition: Good Instructions (If sedation given, give patient instructions): Deep Vein Thrombosis (ED) Prescriptions: Apixaban [Eliquis Starter Pack (for VTE)] 5 - 10 mg PO DIRECTED 30 Days #1 each Is patient prescribed a controlled substance at d/c from ED?: No Referrals: Stephanie Grider DO [Primary Care Provider] - 1-2 days Time of Disposition: 13:46
--- NOTE | 2022-12-07 13:22 | US ---
EXAMINATION TYPE: US venous doppler duplex LE RT DATE OF EXAM: 12/07/2022 1:07 PM COMPARISON: US 12/26/2021 CLINICAL HISTORY: Swollen and tender leg. Swollen and tender right leg x 24 hours. Hx of right knee r eplacement. SIDE PERFORMED: Right TECHNIQUE: The lower extremity deep venous system is examined utilizing real time linear array sonog chantel with graded compression, doppler sonography and color-flow sonography. VESSELS IMAGED: Common Femoral Vein Deep Femoral Vein Greater Saphenous Vein * Femoral Vein Popliteal Vein Small Saphenous Vein * Proximal Calf Veins (* superficial vessels) Right Leg: Internal echoes seen within the popliteal vein and prox calf veins. Color defect seen w ithin these segments. Popliteal and prox calf veins do not appear to compress. IMPRESSION: 1. Findings are suspicious for popliteal and proximal calf vein DVT.
[2022-12-07] MEDS ORDERED: APIXABAN 5 MG TAB PO STA (13:43)
[2022-12-07 15:51] VITALS: BP 186/92; PULSE 102; RESP 14; TEMP 98.1
== END 2022-12-07 14:40 | disposition home or self-care (01) ==
LOC: EC 12:10
DX: I82.461 Acute embolism and thrombosis of right calf muscular vein (principal); E11.9 Type 2 diabetes mellitus without complications; I10 Essential (primary) hypertension; F90.9 Attention-deficit hyperactivity disorder, unspecified type; F32.A Depression, unspecified; F17.200 Nicotine dependence, unspecified, uncomplicated; F12.90 Cannabis use, unspecified, uncomplicated; Z88.8 Allergy status to other drugs, medicaments and biological substances
CPT/HCPCS: 99283

== ENCOUNTER 2023-03-15 10:53 | Emergency (ER) | payer BC, OTHER ==
--- NOTE | 2023-03-15 11:23 | ED ---
General Adult HPI - General Chief complaint: Extremity Problem,Nontraumatic Stated complaint: R Leg Pain, Barely walk on it Time Seen by Provider: 03/15/23 11:11 Source: patient, RN notes reviewed Mode of arrival: wheelchair Limitations: no limitations - History of Present Illness Initial comments: 62-year-old male with past medical history of hypertension, hyperlipidemia, DVT presents to the emergency department for chief complaint of right leg swelling and pain x3 days. He states that he has pain in the lateral calf along with swelling in his ankle. He states the pain is similar to the pain he experienced with his prior DVTs. He states that he has been off his Eliquis for about 10 days. He is unable to get in to primary care provider. Denies chest pain, increased shortness of breath. Denies fever, chills. - Related Data Previous Rx's Medication Instructions Recorded lisinopriL [Zestril] 10 mg PO DAILY #30 tab 07/23/19 Apixaban [Eliquis Starter Pack 5 - 10 mg PO DIRECTED 30 Days 09/28/21 (for VTE)] #1 each HYDROcodone/APAP 5-325MG [[place] 1 tab PO Q6HR PRN 3 Days #12 tab 09/28/21 5-325] Nicotine 21Mg/24Hr Patch [Habitrol] 1 patch TRANSDERM DAILY #30 patch 09/28/21 glipiZIDE [Glucotrol] 5 mg PO AC-BID #60 tab 09/28/21 metFORMIN HCL 500 mg PO BID 30 Days #60 tablet 09/28/21 Cephalexin [Keflex] 500 mg PO Q6HR #40 cap 12/26/21 Apixaban [Eliquis Starter Pack 5 - 10 mg PO DIRECTED 30 Days 12/07/22 (for VTE)] #1 each Apixaban [Eliquis Starter Pack 0 mg PO DIRECTED 30 Days #1 03/15/23 (for VTE)] packet Apixaban [Eliquis] 5 mg PO BID #60 tab 03/15/23 Allergies Allergy/AdvReac Type Severity Reaction Status Date / Time insulin detemir Allergy Anaphylaxis Verified 03/15/23 11:11 [From Levemir] Review of Systems ROS Statement: Those systems with pertinent positive or pertinent negative responses have been documented in the HPI. ROS Other: All systems not noted in ROS Statement are negative. Past Medical History Past Medical History: Diabetes Mellitus, Deep Vein Thrombosis (DVT), Hyperlipidemia, Hypertension, Pulmonary Embolus (PE) Additional Past Medical History / Comment(s): kidney stones, DVT, PE Last Myocardial Infarction Date:: 2018 History of Any Multi-Drug Resistant Organisms: None Reported Past Surgical History: Cholecystectomy, Joint Replacement, Orthopedic Surgery Additional Past Surgical History / Comment(s): RIGHT KNEE REPLACED x3, LEFT ROTATOR CUFF, Past Anesthesia/Blood Transfusion Reactions: No Reported Reaction Date of Last Stent Placement:: 07/19/19 Past Psychological History: ADD/ADHD, Depression Smoking Status: Current every day smoker Past Alcohol Use History: Abuse, Heavy Past Drug Use History: Marijuana - Past Family History Father Family Medical History: Diabetes Mellitus Additional Family Medical History / Comment(s): CABG Mother Family Medical History: Diabetes Mellitus Additional Family Medical History / Comment(s): Mother is living. General Exam Limitations: no limitations General appearance: alert, in no apparent distress Head exam: Present: atraumatic, normocephalic, normal inspection Eye exam: Present: normal appearance, PERRL, EOMI. Absent: scleral icterus, conjunctival injection, periorbital swelling ENT exam: Present: normal exam, mucous membranes moist Neck exam: Present: normal inspection. Absent: tenderness, meningismus, lymphadenopathy Respiratory exam: Present: normal lung sounds bilaterally. Absent: respiratory distress, wheezes, rales, rhonchi, stridor Cardiovascular Exam: Present: regular rate, normal rhythm, normal heart sounds. Absent: systolic murmur, diastolic murmur, rubs, gallop, clicks GI/Abdominal exam: Present: soft, normal bowel sounds. Absent: distended, t enderness, guarding, rebound, rigid Extremities exam: Present: full ROM, tenderness (Mild lateral calf tenderness), normal capillary refill, other (DP and PT pulses 2+, normal range of motion at the toes, ankle, knee; ) Back exam: Present: normal inspection Neurological exam: Present: alert, oriented X3 Psychiatric exam: Present: normal affect, normal mood Skin exam: Present: warm, dry, intact, normal color. Absent: rash Course Vital Signs 03/15/23 03/15/23 03/15/23 11:07 12:04 14:36 Temperature 98.6 F 97.6 F 98.4 F Pulse Rate 108 H 96 94 Respiratory 20 16 18 Rate Blood Pressure 134/88 146/93 137/86 O2 Sat by Pulse 99 98 98 Oximetry Medical Decision Making - Medical Decision Making Was pt. sent in by a medical professional or institution (, DAVY, POTATO INSPECTOR, urgent care, hospital, or custodial...) When possible be specific @ -No Did you speak to anyone other than the patient for history (EMS, parent, family, police, friend...)? What history was obtained from this source @ -No Did you review nursing and triage notes (agree or disagree)? Why? @ -I reviewed and agree with nursing and triage notes Were old charts reviewed (outside hosp., previous admission, EMS record, old EKG, old radiological studies, urgent care reports/EKG's, custodial records)? Report findings @ -Prior ultrasound and records reviewed Differential Diagnosis (chest pain, altered mental status, abdominal pain women, abdominal pain men, vaginal bleeding, weakness, fever, dyspnea, syncope, headache, dizziness, GI bleed, back pain, seizure, CVA, palpatations, mental health, musculoskeletal)? @ -Differential Musculoskeletal Muscular strain, contusion, ligament sprain, fracture, arthritis, septic arthritis, bursitis, cellulitis, muscle spasm, nerve compression, DVT, arterial occlusion, herpes zoster, electrolyte abnormality, tumor.... This is not meant to be in all inclusive list EKG interpreted by me (3pts min.). @ -None X-rays interpreted by me (1pt min.). @ -None done CT interpreted by me (1pt min.). @ -None done U/S interpreted by me (1pt. min.). @ -Ultrasound of the right lower extremity showed positive DVT in the right leg, thready flow with partial compression of right popliteal vein as read by the radiologist What testing was considered but not performed or refused? (CT, X-rays, U/S, labs)? Why? @ -None What meds were considered but not given or refused? Why? @ -None Did you discuss the management of the patient with other professionals (professionals i.e. DAVY Carrasquillo, POTATO INSPECTOR, lab, RT, psych nurse, social welfare research worker, retail sales manager, teacher, project control officer, spring encaser)? Give summary @ -Case management was involved in the care of the patient. CM made an appointment for the patient's primary care provider and contacted the pharmacy so the patient could get his Eliquis Was smoking cessation discussed for >3mins.? @ -No Was critical care preformed (if so, how long)? @ -No Were there social determinants of health that impacted care today? How? (Homelessness, low income, unemployed, alcoholism, drug addiction, transportation, low edu. Level, literacy, decrease access to med. care, [facility], rehab)? @ -No Was there de-escalation of care discussed even if they declined (Discuss DNR or withdrawal of care, Hospice)? DNR status @ -No What co-morbidities impacted this encounter? (DM, HTN, Smoking, COPD, CAD, Cancer, CVA, ARF, Chemo, Hep., AIDS, mental health diagnosis, sleep apnea, morbid obesity)? @ -None Was patient admitted / discharged? Hospital course, mention meds given and ro johana, prescriptions, significant lab abnormalities, going to OR and other pertinent info. @ -Discharged. Patient presented to emergency department for right lower extremity swelling and pain. Patient has a history of DVT and has been off his Eliquis for the past 10 days. He states that his been trying to get into a new primary care provider but has not been able to yet. Case management [place] [address] at 11:30 AM. Patient was given a dose of Eliquis here. Patient was unable to get another prescription for an Eliquis starter pack as he has had one in November. Prescription was sent to [facility] for 5 mg twice a day of Eliquis. Case management ensured that the patient is able to get his medication. Patient has a $10 copay card and is going to leave the ED and go to the pharmacy here to product picker his medication. Patient was advised to take medication as prescribed and return to the emergency department if he develops chest pain or shortness of breath. Undiagnosed new problem with uncertain prognosis? @ -No Drug Therapy requiring intensive monitoring for toxicity (Heparin, Nitro, Insulin, Cardizem)? @ -No Were any procedures done? @ -No Diagnosis/symptom? @ -dvt Acute, or Chronic, or Acute on Chronic? @ -acute Uncomplicated (without systemic symptoms) or Complicated (systemic symptoms)? @ -uncomplicated Side effects of treatment? @ -No Exacerbation, Progression, or Severe Exacerbation? @ -No Poses a threat to life or bodily function? How? (Chest pain, [place], [place], pneumonia, PE, COPD, DKA, ARF, appy, cholecystitis, CVA, Diverticulitis, Homicidal, Suicidal, threat to staff... and all critical care pts) @ -No Disposition Clinical Impression: Deep vein thrombosis (DVT) of lower extremity Disposition: HOME SELF-CARE Condition: Stable Instructions (If sedation given, give patient instructions): Deep Vein Thrombosis (ED) Additional Instructions: Please take medication as prescribed. Follow up with Dr. Grider for medication management. Return to the emergency department for new or worsening symptoms. Prescriptions: Apixaban [Eliquis] 5 mg PO BID #60 tab Apixaban [Eliquis Starter Pack (for VTE)] 0 mg PO DIRECTED 30 Days #1 packet Is patient prescribed a controlled substance at d/c from ED?: No Referrals: Stephanie Grider DO [Primary Care Provider] - 03/19/23 11:30 am (Appointment will be with DAVY Holder. ) Forms: Work/School Release Time of Disposition: 13:03
--- NOTE | 2023-03-15 12:18 | US ---
EXAMINATION TYPE: US venous doppler duplex LE RT DATE OF EXAM: 03/15/2023 12:05 PM COMPARISON: Right lower extremity venous ultrasound 12/07/2022, 12/26/2021 CLINICAL INDICATION: Male, 62 years old with history of pain, swelling, hx dvt; Pain and edema right leg. History of DVT. Patient not currently on blood thinner SIDE PERFORMED: Right TECHNIQUE: The lower extremity deep venous system is examined utilizing real time linear array sonog chantel with graded compression, doppler sonography and color-flow sonography. VESSELS IMAGED: Common Femoral Vein Deep Femoral Vein Greater Saphenous Vein * Femoral Vein Popliteal Vein Small Saphenous Vein * Proximal Calf Veins (* superficial vessels) Right Leg: +Positive for DVT. thready flow with partial compression right popliteal vein IMPRESSION: Redemonstration of the deep venous thrombosis involving the right popliteal vein, chronic appearance.
[2023-03-15] MEDS ORDERED: APIXABAN 5 MG TAB PO STA (13:01)
[2023-03-15 14:37] VITALS: BP 137/86; PULSE 94; RESP 18; TEMP 98.4
== END 2023-03-15 15:31 | disposition home or self-care (01) ==
LOC: EC 10:53
DX: I82.401 Acute embolism and thrombosis of unspecified deep veins of right lower extremity (principal); E11.9 Type 2 diabetes mellitus without complications; I10 Essential (primary) hypertension; I25.2 Old myocardial infarction; F17.200 Nicotine dependence, unspecified, uncomplicated; F12.90 Cannabis use, unspecified, uncomplicated; Z88.8 Allergy status to other drugs, medicaments and biological substances
CPT/HCPCS: 99283

== ENCOUNTER 2024-05-11 13:09 | Emergency (ER) | payer BC, MEDICARE, OTHER ==
[2024-05-11 13:13] VITALS: RESP 18
--- NOTE | 2024-05-11 13:33 | ED ---
General Adult HPI - General Chief complaint: ENT Stated complaint: sore throat Time Seen by Provider: 05/11/24 13:15 Source: patient, RN notes reviewed, old records reviewed Mode of arrival: ambulatory Limitations: no limitations - History of Present Illness Initial comments: This is a 63-year-old male who presents to the emergency department complaining of difficulty swallowing and painful swallowing x 1 month. Patient states that started 1 day and became much worse the next and has been consistent ever since. Patient states it is difficult to swallow food and drink but eventually goes down. Patient states swallowing food is very painful. Patient denies any history of steroid use patient denies any chemotherapy patient denies any previous problem with difficulty swallowing. Patient denies any recent fever chills or cough. Patient denies any chest pain back pain or abdominal pain. Patient has any nausea or vomiting. - Related Data Home Medications Medication Instructions Recorded Confirmed No Known Home Medications 05/11/24 05/11/24 Allergies Allergy/AdvReac Type Severity Reaction Status Date / Time insulin detemir Allergy Anaphylaxis Verified 05/11/24 16:46 [From Levemir] Review of Systems ROS Statement: Those systems with pertinent positive or pertinent negative responses have been documented in the HPI. ROS Other: All systems not noted in ROS Statement are negative. Past Medical History Past Medical History: Diabetes Mellitus, Deep Vein Thrombosis (DVT), Hyperlipidemia, Hypertension, Pulmonary Embolus (PE) Additional Past Medical History / Comment(s): kidney stones, DVT, PE Last Myocardial Infarction Date:: 2018 History of Any Multi-Drug Resistant Organisms: None Reported Past Surgical History: Cholecystectomy, Joint Replacement, Orthopedic Surgery Additional Past Surgical History / Comment(s): RIGHT KNEE REPLACED x3, LEFT ROTATOR CUFF, Past Anesthesia/Blood Transfusion Reactions: No Reported Reaction Date of Last Stent Placement:: 07/19/19 Past Psychological History: ADD/ADHD, Depression Smoking Status: Current every day smoker Past Alcohol Use History: Abuse, Heavy Past Drug Use History: Marijuana - Past Family History Father Family Medical History: Diabetes Mellitus Additional Family Medical History / Comment(s): CABG Mother Family Medical History: Diabetes Mellitus Additional Family Medical History / Comment(s): Mother is living. General Exam - General Exam Comments Initial Comments: GENERAL: Patient is well-developed and well-nourished. Patient is nontoxic and well- hydrated and is in mild distress. ENT: Neck is soft and supple. No significant lymphadenopathy is noted. Oropharynx is clear. Patient is voice is somewhat muffled. Moist mucous membranes. Neck has full range of motion without eliciting any pain. There is no thyroid enlargement and no masses were felt. EYES: The sclera were anicteric and conjunctiva were pink and moist. Extraocular movements were intact and pupils were equal round and reactive to light. Eyelids were unremarkable. PULMONARY: Unlabored respirations. Good breath sounds bilaterally. No audible rales rhonchi or wheezing was noted. CARDIOVASCULAR: There is a regular rate and rhythm without any murmurs gallops or rubs. ABDOMEN: Soft and nontender with normal bowel sounds. SKIN: Skin is clear with no lesions or rashes and otherwise unremarkable. NEUROLOGIC: Patient is alert and oriented x3. Cranial nerves II through XII are grossly intact. Motor and sensory are also intact. Normal speech, volume and content. Symmetrical smile. MUSCULOSKELETAL: Normal extremities with adequate strength and full range of motion. LYMPHATICS: No significant lymphadenopathy is noted PSYCHIATRIC: Normal psychiatric evaluation. Limitations: no limitations Course Vital Signs 05/11/24 05/11/24 13:11 15:43 Temperature 97.8 F 98.3 F Pulse Rate 65 79 Respiratory 18 18 Rate Blood Pressure 145/98 141/97 O2 Sat by Pulse 98 95 Oximetry Medical Decision Making - Medical Decision Making Patient is EKG shows sinus tachycardia to 109 bpm UT interval 258 QRS is 96 QT interval is 325 QTc is 389. Patient's EKG shows no ST segment ovation or depression. Was pt. sent in by a medical professional or institution (, PA, SYSTEM DEVELOPMENT MANAGER, urgent care, hospital, or senior care...) When possible be specific @ -No Did you speak to anyone other than the patient for history (EMS, parent, family, police, friend...)? What history was obtained from this source @ -No Did you review nursing and triage notes (agree or disagree)? Why? @ -I reviewed and agree with nursing and triage notes Were old charts reviewed (outside hosp., previous admission, EMS record, old EKG, old radiological studies, urgent care reports/EKG's, senior care records)? Report findings @ -No old charts were reviewed Differential Diagnosis? @ -Foreign body esophagus, esophagitis, esophageal mass, strep throat, mononucleosis, this is not an all-inclusive list EKG interpreted by me (3pts min.). @ -As above X-rays interpreted by me (1pt min.). @ -None done CT interpreted by me (1pt min.). @ -CT scan shows a mass at the base of the tongue which also contains quite a bit air moving anteriorly. U/S interpreted by me (1pt. min.). @ -None done What testing was considered but not performed or refused? (CT, X-rays, U/S, labs)? Why? @ -None What meds were considered but not given or refused? Why? @ -None Did you discuss the management of the patient with other professionals (professionals i.e. DrBeckie, PA, SYSTEM DEVELOPMENT MANAGER, lab, RT, psych nurse, social science manager, cook fruit, teacher, anti air warfare operations officer, top case assembler)? Give summary @ -I spoke with Dr. Garcia he thought the patient would be better served at a hospital with minimal robust ENT service. I spoke with the ER doctor down at [facility] and they accepted the transfer after having spoken with their ENT Was smoking cessation discussed for >3mins.? @ -No Was critical care preformed (if so, how long)? @ -No Were there social determinants of health that impacted care today? How? (Homelessness, low income, unemployed, alcoholism, drug addiction, transportation, low edu. Level, literacy, decrease access to med. care, assisted, rehab)? @ -No Was there de-escalation of care discussed even if they declined (Discuss DNR or withdrawal of care, Hospice)? DNR status @ -No What co-morbidities impacted this encounter? (DM, HTN, Smoking, COPD, CAD, Cancer, CVA, ARF, Chemo, Hep., AIDS, mental health diagnosis, sleep apnea, morbid obesity)? @ -None Was patient admitted / discharged? Hospital course, mention meds given and route, prescriptions, significant lab abnormalities, going to OR and other pertinent info. @ -Patient was given some IV fluids while in the emergency department. Patient had no problems breathing throughout his stay and his symptoms were not worsening while he was here and he will be transferred out to [facility] Undiagnosed new problem with uncertain prognosis? @ -No Drug Therapy requiring intensive monitoring for toxicity (Heparin, Nitro, Insulin, Cardizem)? @ -No Were any procedures done? @ -No Diagnosis/symptom? @ -Dysphagia Acute, or Chronic, or Acute on Chronic? @ -Acute Uncomplicated (without systemic symptoms) or Complicated (systemic symptoms)? @ -Default Side effects of treatment? @ -Located Exacerbation, Progression, or Severe Exacerbation? @ -No Poses a threat to life or bodily function? How? (Chest pain, [place], [place], pneumonia, PE, COPD, DKA, ARF, appy, cholecystitis, CVA, Diverticulitis, Homicidal, Suicidal, threat to staff... and all critical care pts) @ -Yes this could lead to more severe obstruction Diagnosis/symptom? @ -Tongue mass Acute, or Chronic, or Acute on Chronic? @ -Acute on chronic Uncomplicated (without systemic symptoms) or Complicated (systemic symptoms)? @ -Complicated Side effects of treatment? @ -None Exacerbation, Progression, or Severe Exacerbation] @ -No Poses a threat to life or bodily function? @ -No - Lab Data Result diagrams: 05/11/24 13:50 05/11/24 13:50 Lab Results 05/11/24 05/11/24 05/11/24 Range/Units 13:50 13:50 13:50 WBC 6.1 (3.8-10.6) k/uL RBC 4.68 (4.30-5.90) m/uL Hgb 15.8 (13.0-17.5) gm/dL Hct 46.3 (39.0-53.0) % MCV 98.9 (80.0-100.0) fL MCH 33.7 (25.0-35.0) pg MCHC 34.1 (31.0-37.0) g/dL RDW 12.5 (11.5-15.5) % Plt Count 217 (150-450) k/uL MPV 7.4 Neutrophils % 80 % Lymphocytes % 11 % Monocytes % 6 % Eosinophils % 1 % Basophils % 1 % Neutrophils # 4.9 (1.3-7.7) k/uL Lymphocytes # 0.7 L (1.0-4.8) k/uL Monocytes # 0.4 (0-1.0) k/uL Eosinophils # 0.1 (0-0.7) k/uL Basophils # 0.1 (0-0.2) k/uL Sodium (137-145) mmol/L Potassium (3.5-5.1) mmol/L Chloride (98-107) mmol/L Carbon Dioxide (22-30) mmol/L Anion Gap mmol/L BUN (9-20) mg/dL Creatinine (0.66-1.25) mg/dL Est GFR (CKD-EPI)AfAm (>60 ml/min/1.73 sqM) Est GFR (CKD-EPI)NonAf (>60 ml/min/1.73 sqM) Glucose (74-99) mg/dL Calcium (8.4-10.2) mg/dL Total Bilirubin (0.2-1.3) mg/dL AST (17-59) U/L ALT (4-49) U/L Alkaline Phosphatase (38-126) U/L Total Protein (6.3-8.2) g/dL Albumin (3.5-5.0) g/dL Heterophile Antibody (Negative) Influenza Type A (PCR) Not Detected (Not Detectd) Influenza Type B (PCR) Not Detected (Not Detectd) RSV (PCR) Not Detected (Not Detectd) SARS-CoV-2 (PCR) Not Detected (Not Detectd) Group A Strep (PCR) NOT DETECTED (Not Detectd) 05/11/24 05/11/24 Range/Units 13:50 13:50 WBC (3.8-10.6) k/uL RBC (4.30-5.90) m/uL Hgb (13.0-17.5) gm/dL Hct (39.0-53.0) % MCV (80.0-100.0) fL MCH (25.0-35.0) pg MCHC (31.0-37.0) g/dL RDW (11.5-15.5) % Plt Count (150-450) k/uL MPV Neutrophils % % Lymphocytes % % Monocytes % % Eosinophils % % Basophils % % Neutrophils # (1.3-7.7) k/uL Lymphocytes # (1.0-4.8) k/uL Monocytes # (0-1.0) k/uL Eosinophils # (0-0.7) k/uL Basophils # (0-0.2) k/uL Sodium 136 L (137-145) mmol/L Potassium 3.8 (3.5-5.1) mmol/L Chloride 101 (98-107) mmol/L Carbon Dioxide 21 L (22-30) mmol/L Anion Gap 14 mmol/L BUN 12 (9-20) mg/dL Creatinine 0.64 L (0.66-1.25) mg/dL Est GFR (CKD-EPI)AfAm >90 (>60 ml/min/1.73 sqM) Est GFR (CKD-EPI)NonAf >90 (>60 ml/min/1.73 sqM) Glucose 259 H (74-99) mg/dL Calcium 9.4 (8.4-10.2) mg/dL Total Bilirubin 0.6 (0.2-1.3) mg/dL AST 21 (17-59) U/L ALT 12 (4-49) U/L Alkaline Phosphatase 43 (38-126) U/L Total Protein 6.7 (6.3-8.2) g/dL Albumin 3.9 (3.5-5.0) g/dL Heterophile Antibody Negative (Negative) Influenza Type A (PCR) (Not Detectd) Influenza Type B (PCR) (Not Detectd) RSV (PCR) (Not Detectd) SARS-CoV-2 (PCR) (Not Detectd) Group A Strep (PCR) (Not Detectd) Disposition Clinical Impression: Tongue mass, Dysphagia Disposition: TRANSFER TO PSYCH HOSP/UNIT Referrals: Stephanie Grider DO [Primary Care Provider] - 1-2 days - Out of Hospital Transfer - Req. Specs Out of Hospital Transfer - Requested Specifics: Other Emergency Center ([facility])
[2024-05-11 14:24] LABS: ALT 12 U/L (4-49); AST 21 U/L (17-59); African American GFR (CKD) >90 (>60 ml/min/1.73 sqM); Albumin 3.9 g/dL (3.5-5.0); Alkaline Phosphatase 43 U/L (38-126); Anion Gap 14 mmol/L; Basophils # (A) 0.1 k/uL (0-0.2); Basophils % (A) 1 %; Blood Urea Nitrogen 12 mg/dL (9-20); Calcium 9.4 mg/dL (8.4-10.2); Carbon Dioxide 21 mmol/L (22-30); Chloride 101 mmol/L (98-107); Eosinophils # (A) 0.1 k/uL (0-0.7); Eosinophils % (A) 1 %; Glucose 259 mg/dL (74-99); HCT 46.3 % (39.0-53.0); HGB 15.8 gm/dL (13.0-17.5); Lymphocytes # (A) 0.7 k/uL (1.0-4.8); Lymphocytes % (A) 11 %; MCH 33.7 pg (25.0-35.0); MCHC 34.1 g/dL (31.0-37.0); MCV 98.9 fL (80.0-100.0); Mean Platelet Volume 7.4; Monocytes # (A) 0.4 k/uL (0-1.0); Monocytes % (A) 6 %; Neutrophils # (A) 4.9 k/uL (1.3-7.7); Neutrophils % (A) 80 %; Non-African American GFR(CKD) >90 (>60 ml/min/1.73 sqM); Platelet Count 217 k/uL (150-450); Potassium 3.8 mmol/L (3.5-5.1); RBC 4.68 m/uL (4.30-5.90); RDW 12.5 % (11.5-15.5); Sodium 136 mmol/L (137-145); Total Bilirubin 0.6 mg/dL (0.2-1.3); Total Protein 6.7 g/dL (6.3-8.2); WBC 6.1 k/uL (3.8-10.6)
--- NOTE | 2024-05-11 15:34 | CT ---
EXAMINATION TYPE: CT soft tissue neck w con CT DLP: 296.6 mGycm, Automated exposure control for dose reduction was used. DATE OF EXAM: 05/11/2024 2:47 PM COMPARISON: None. CLINICAL INDICATION: Male, 63 years old with history of Difficulty swallowing and swelling with pain; PHH, Difficulty swallowing and sore throat for a month TECHNIQUE: Standard enhanced CT of the neck. Axial sections with coronal and sagittal reformats were obtained. Contrast used:100 ml mL of Isovue 300 with IV Contrast, (None if empty) Oral contrast used: (None if empty) FINDINGS: Brain: Visualized portions are grossly unremarkable. Orbits: Unremarkable Sinuses: Grossly unremarkable. Spaces of the neck: Abnormal appearance of the base of tongue with frothy extension of gas extending anteriorly. This extends at least 3.0 cm into the neck from the expected location of the base of the tongue. Musculoskeletal: No acute osseous pathology. Lymph nodes: Enlarged neck lymph nodes bilaterally including right neck measuring up to 17 mm in short axis and left neck measuring up to 17 mm in short axis. These are belo w the level of the high-grade bone. Vascular Structures: Visualized major arteries are patent without evidence of aneurysm. There is nonc alcified plaque at the carotid bifurcations bilaterally with up to 28% stenosis of the left carotid b ifurcation.. Thoracic Inlet/airway: Airway is patent. The lung apices are clear. Soft tissues/Thyroid: Thyroid and remainder of the soft tissues are unremarkable. Other: none. IMPRESSION 1. Abnormal appearance of the base of tongue with air cavity extending anteriorly. Underlying necrot izing mass not excluded. ENT evaluation with direct visualization recommended.. 2. Multiple bilateral enlarged neck lymph nodes concerning for metastatic disease.
[2024-05-11 15:43] VITALS: TEMP 98.3
[2024-05-11] MEDS: hydrALAZINE HCL 20 MG/ML 1 ML VIAL IVP STA (18:59)
[2024-05-11] MEDS: LORazepam 2 MG/ML INJ IV STA (18:59)
[2024-05-11] MEDS: NICOTINE 21MG/24HR PATCH TRANSDERM STA (19:30)
[2024-05-11 22:07] VITALS: BP 150/104; PULSE 85
== END 2024-05-11 22:17 ==
LOC: EC 13:09
DX: K14.8 Other diseases of tongue (principal); R13.10 Dysphagia, unspecified; F17.200 Nicotine dependence, unspecified, uncomplicated; Z88.8 Allergy status to other drugs, medicaments and biological substances
CPT/HCPCS: 99285; 96374; 96375; 36415; 93005; 87651; 80053; 85025; 86308; 87636; 70491; S4990; J2060; J0360; Q9967

== ENCOUNTER → 2024-05-23 | Outpatient (CLI) | payer MEDICARE | END | disposition home or self-care (01) | LOC: RADPETMAIN 08:50 | PROVIDERS: ATTEND Radiology Radiation Oncology | DX: Z53.9 Procedure and treatment not carried out, unspecified reason (principal) ==

== ENCOUNTER → 2024-05-29 | Outpatient (CLI) | payer MEDICARE ==
--- NOTE | 2024-06-08 23:52 | PE ---
EXAMINATION TYPE: PET CT fusion skull to thigh DATE OF EXAM: 05/29/2024 COMPARISON: 05/11/2024 Prior PET/CT: None at this location HISTORY: Base of tongue cancer TECHNIQUE: Following the intravenous administration of 10.42 mCi of F-18 FDG, whole body images are performed from the skull base to the midthigh. Images are reviewed on the computer in the coronal, a xial, and sagittal planes. Reconstructed rotating images are created on independent workstation and reviewed on the computer. A localization and attenuation correction CT is performed in conjunction with the PET scan. Head and neck dedicated imaging is performed. DLP: 475.53 +126.02 mGycm SCAN: Subsequent Blood glucose: 223 mg/dL Average Mediastinum SUV: 2.51 Average Liver SUV: 3.38 FINDINGS: NECK: There is some focal uptake in the left parotid region with an SUV of 3.93, image 25. Small met astatic lymph node suspected. There is a very prominent area of uptake within the left parotid region may be a lymph node image 38, SUV 6.73. Contralateral right punctate uptake within the parotid gland region may be additional lymph node, image 39 with SUV 5.72. There is uptake within posterior lymph nodes bilaterally, example image 42, SUV 7.61 on the left and 8.29 on the right. There is intense uptake within the base of the tongue, image 44, SUV 9.59. This may be deforming the hypopharynx above the vocal cords. There is some asymmetry of the vocal cords with displacement on th e left. THORAX: No abnormal uptake ABDOMEN: No abnormal uptake PELVIS: No abnormal uptake OSSEOUS STRUCTURES: No abnormal uptake there is asymmetry at the base of the tongue with abnormal air at the base of the tongue. There is asymmetry of the vocal cords with more medial anterior left voca l cord. Left adrenal gland is somewhat prominent although no abnormal uptake is evident. There is a h ypodense mass anterior to the left adrenal gland without uptake. Consider stomach diverticulum. Pancr eatic cyst could be considered. LOCALIZATION CT: Findings head CT are evident on the localization CT COMPARISON: On the dedicated head and neck imaging uptake through the base of the tongue defect to th e base of the epiglottis is evident. No lymphadenopathy corresponding to the areas of uptake appear p rominent. IMPRESSION: 1. Abnormal uptake within the base of the tongue defect extending to the anterior neck and into the b ase of the epiglottis. 2. Multiple enlarged lymph nodes present bilaterally in the cervical chain and periparotid regions. [facility], , 06/08/2024 11:49 PM
== END | disposition home or self-care (01) ==
LOC: RADPETMAIN 10:32
PROVIDERS: ATTEND Radiology Radiation Oncology
DX: C01 Malignant neoplasm of base of tongue
CPT/HCPCS: 78815

== ENCOUNTER → 2024-11-07 | Outpatient (CLI) | payer MEDICARE ==
--- NOTE | 2024-11-09 08:33 | PE ---
EXAMINATION TYPE: PET CT fusion skull to thigh DATE OF EXAM: 11/07/2024 CLINICAL INDICATION:Male, 64 years old with history of C01 Head and neck ca; TECHNIQUE: Following the intravenous administration of 11.26 mCi of F-18 FDG, whole body images are performed from the skull base to the midthigh. Images are reviewed on the computer in the coronal, axial, and sagittal planes. Reconstructed rotating images are created on independent workstation and reviewed on the computer. A non-contrast CT is performed in conjunction with the PET scan. Glucose level 183 mg/dL CT DLP: 500.98 mGycm, Automated exposure control for dose reduction was used. COMPARISON: CT 05/11/2024, 09/27/2021, PET/CT 05/29/2024, MRI: None FINDINGS: Mediastinal SUV mean is 2.3. Hepatic parenchyma SUV mean is 3.0. SKULL BASE AND NECK: Stable size of left parotid gland lesion measuring 9 mm with a maximum SUV of 4.2, previously 3.9. Redemonstration of ulcerated appearance of the base of the tongue with decreased radiotracer activity from prior exam. There is some residual radiotracer activity along its inferior aspect of disability hyoid bone with a maximum SUV of 5.9. Previously 13.0. Previously seen bilateral jugular lymph nodes have improved with decreased size and FDG activity near background levels. CHEST, MEDIASTINUM, AND HILAR REGION: Development of a right perihilar FDG avid 1.2 cm nodule with a maximum SUV of 12.7. ABDOMEN AND PELVIS: No suspicious radiotracer activity. MUSCULOSKELETAL STRUCTURES: No suspicious radiotracer activity. Pancreatic tail cystic lesion redemonstrated measuring up to 4.7 cm. No suspicious radiotracer activi ty. OTHER CT: Minimal mucosal thickening of the bilateral inferior maxillary sinuses. Bilateral carotid b ulb calcifications. Atherosclerotic calcification of the aorta and its branches. Moderate coronary ar terial calcifications. Multilevel degenerative changes of the spine. Surgical anchor within the left humeral head. Degenerative changes of bilateral SI joints with anterior bridging. PEG tube identified in appropriate position. Similar thickening of the left adrenal gland. IMPRESSION: 1. Mixed response to therapy with improvement in ulcerated tongue base FDG activity and bilateral ne ck lymph nodes however there is development of a right perihilar FDG avid 1.2 cm nodule. Most consist ent with metastasis. 2. Stable left parotid gland FDG avid lesion. This could represent metastasis however there is no si gnificant change in size or FDG activity. Other etiologies include a parotid salivary gland neoplasm. 3. Stable pancreatic cystic lesion which may represent a pseudocyst versus other etiologies. No radi otracer activity. This can be further evaluated with MR abdomen pancreatic mass protocol as clinicall y indicated. [facility], , 11/09/2024 8:31 AM
== END | disposition home or self-care (01) ==
LOC: RADPETMAIN 09:18
PROVIDERS: ATTEND Radiology Radiation Oncology
DX: C77.0 Secondary and unspecified malignant neoplasm of lymph nodes of head, face and neck (principal); K86.2 Cyst of pancreas; R93.7 Abnormal findings on diagnostic imaging of other parts of musculoskeletal system
CPT/HCPCS: 78815; A9552

== ENCOUNTER 2024-11-27 12:48 | Day surgery (SDC) | payer MEDICARE ==
[~2024-11-27 12:48] MED LIST: LACTATED RINGERS 1,000 ML IV SCH
[2024-11-27] MEDS: IV FLUID CONTINUATION 1,000 ML IV ONE (13:43)
[2024-11-27 13:55] VITALS: RESP 16
--- NOTE | 2024-11-27 13:56 | CT ---
EXAMINATION TYPE: CT Chest ION protocol DATE OF EXAM: 11/27/2024 COMPARISON: PET CT 11/07/2024, 05/29/2024, CT chest 09/27/2021 CLINICAL INDICATION: Male, 64 years old with history of bronchoscopy guidance; [facility] [place] OCEDURE TECHNIQUE: CT scan of the thorax is performed without IV contrast. CT DLP: 350 mGycm Automated exposure control for dose reduction was used. FINDINGS: LUNGS: Stable right lower lobe perihilar 1.1 cm nodule (series 3, image 416). This is FDG avid on jennyfer or PET/CT. Development of multiple small scattered nodular opacities with surrounding groundglass thr oughout the lungs in a tree-in-bud morphology. There is no pleural effusion or pneumothorax seen. Th e tracheobronchial tree is patent. MEDIASTINUM: Lack of IV contrast is noted to limit evaluation for mediastinal and especially hilar ad enopathy. There are no definitive greater than 1 cm mediastinal lymph nodes. No cardiomegaly. Ather osclerotic calcification of the aorta and its branches. HEART: Size within normal limits.Trace pericardial effusion. Moderate coronary artery calcifications present. Aortic valvular calcifications. OTHER: No additional significant abnormality is seen. Gallbladder is surgically absent. PEG tube chastity ntified within the region of the stomach. Stable pancreatic tail cystic lesion measuring up to 4.4 cm similar hypodense thickening of the bilateral adrenal glands left greater than right. Bilateral shou lder arthropathy. DISH of the thoracic spine. IMPRESSION: 1. Grossly stable right lower lobe perihilar 1.1 cm nodule which was FDG avid on prior PET/CT and li mary grace represents a metastatic pulmonary nodule versus lymph node. 2. Development of multiple nodular opacities throughout the lungs with a tree and bud morphology in surrounding groundglass. Favored to represent an infectious/inflammatory bronchiolitis. Metastasis is not entirely excluded. 3. Stable pancreatic tail cystic lesion which may represent a pseudocyst versus other etiologies. No FDG activity in prior PET/CT. Excess stable thickening of the bilateral adrenal glands without suspi cious FDG activity on prior PET/CT. May represent adrenal hyperplasia. [facility], , 11/27/2024 1:54 PM
[2024-11-27] MEDS: LACTATED RINGERS 1,000 ML IV SCH (14:05)
[2024-11-27] MEDS: ONDANSETRON 4 MG/2 ML VIAL IVP STA (14:07)
[2024-11-27] MEDS ORDERED: PHENYLEPHRINE-0.9% NACL SYG 1,000 MCG/10 ML SYRINGE ONE (14:10)
[2024-11-27] MEDS ORDERED: GLYCOPYRROLATE 0.2 MG/ML 2 ML VIAL ONE (14:10)
[2024-11-27] MEDS ORDERED: PROPOFOL 10 MG/ML 20 ML VIAL IV ONE (14:10)
[2024-11-27] MEDS ORDERED: MIDAZOLAM 2 MG/2 ML VIAL ONE (14:10)
[2024-11-27] MEDS ORDERED: LIDOCAINE 1% INJ 10MG/ML (20 ML MDV) ONE (14:10)
[2024-11-27] MEDS ORDERED: fentaNYL (PF) 50 MCG/ML 2 ML AMP ONE (14:10)
[2024-11-27] MEDS ORDERED: NEOSTIGMINE 1 MG/ML 10 ML VIAL ONE (14:10)
[2024-11-27] MEDS ORDERED: ROCURONIUM 10 MG/ML (5 ML VIAL) IV ONE (14:10)
[2024-11-27] MEDS ORDERED: SUCCINYLCHOLINE CHLORIDE 200 MG/10 ML VIAL IV ONE (14:10)
[2024-11-27 14:11] LABS: Glucose,Whole Blood 208 mg/dL (70-110)
[2024-11-27 15:09] VITALS: TEMP 98.1
--- NOTE | 2024-11-27 15:09 | P.PCN ---
Date of Procedure: 11/27/24 Preoperative Diagnosis: Right lower lobe pulmonary nodule Postoperative Diagnosis: Right lower lobe pulmonary nodule Procedure(s) Performed: Intubation Flexible bronchoscopy BAL of the right lower lobe Endobronchial ultrasound TBNA of right lower lobe infrahilar nodule. 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 The patient has a PET avid 1.2 cm right perihilar nodule with an SUV of 12.7 suspicious for malignancy. Based on that, the patient was brought in to endoscopy to undergo biopsy of the solitary right lung nodule. The preop CAT scan was also done and it showed a 1.1 cm right lower lobe pulmonary nodule and the patient also had multiple scattered nodular opacities throughout the lungs bilaterally along with areas of groundglass and tree-in-bud morphology. No significant mediastinal lymphadenopathy. The patient was intubated via bronchoscopy. He had radiation therapy to his neck and manipulation of the neck was quite difficult and the patient had a very swollen epiglottis. Attempts to intubate the patient with the glidoscope failed by anesthesia. I performed the intubation process via bronchoscope. The patient was intubated with a #8 orotracheal tube without any complications Following intubation, a flexible bronchoscopy was done. Airway inspection was completed using a flexible bronchoscope. Inspection of the airways showed copious amount of purulent respiratory patient's catheter along his bilaterally. Copious respiratory secretions in the distal trachea, bilateral mainstem bronchi, and then segments of the lower lobes bilaterally. Therapeutic airway suctioning was done in approximately 20 cc of purulent material was aspirated. A bronchioloalveolar lavage of the right lower lobe was also done. Visualized airways include the bilateral mainstem bronchi, right upper lobe bronchus, bronchus and medius, right middle lobe and right lower lobe bronchus, and the various 10 segments on the right and examination of the left side included the left upper lobe bronchus and the left lower lobe bronchus and the previous 8 segments on the left. The flexible bronchoscope was removed and endobronchial ultrasound was inserted. A careful evaluation of the mediastinal lymph node was done and there was no significant enlarged mediastinal lymphadenopathy. The endobronchial ultrasound was directed to the distal right lower lobe bronchus. Upon inspecting the posterior wall of the right lower lobe bronchus, a 2 cm lesion was identified in the right infrahilar area. Using a 22-gauge needle, transbronchial needle aspirate of the right infrahilar mass was done under IVUS guidance. A total of 5 passes were obtained. Rapid onsite evaluation was done and the cytology was adequate. The procedure was terminated. Endobronchial ultrasound was removed. The patient was extubated and transferred to recovery in stable condition. No complications.
[2024-11-27 16:06] VITALS: BP 106/75; PULSE 96
== END 2024-11-27 16:21 | disposition home or self-care (01) ==
LOC: ORWHC2ENDO 12:48
PROVIDERS: ATTEND Internal Medicine Critical Care Medicine
DX: C34.31 Malignant neoplasm of lower lobe, right bronchus or lung (principal); I10 Essential (primary) hypertension; I25.10 Atherosclerotic heart disease of native coronary artery without angina pectoris; E78.5 Hyperlipidemia, unspecified; E11.9 Type 2 diabetes mellitus without complications; F90.9 Attention-deficit hyperactivity disorder, unspecified type; F32.A Depression, unspecified; F17.200 Nicotine dependence, unspecified, uncomplicated; Z85.01 Personal history of malignant neoplasm of esophagus; Z79.4 Long term (current) use of insulin; Z79.84 Long term (current) use of oral hypoglycemic drugs; Z86.711 Personal history of pulmonary embolism; Z79.01 Long term (current) use of anticoagulants; Z86.718 Personal history of other venous thrombosis and embolism; Z79.899 Other long term (current) drug therapy; Z85.810 Personal history of malignant neoplasm of tongue; Z88.8 Allergy status to other drugs, medicaments and biological substances
CPT/HCPCS: 87798 ×3; 87496; 87498; 87529; 88108; 88305; 88342; 87502; 87634; 88341; 87070; 87205; 87116; 87102; 87206; 87635; 71250; 31629; 31624; 31652; J2250; J0330; J2710; J2405; J2003; J3010; J2704; J2371; J1596

== ENCOUNTER 2024-12-07 16:03 | Emergency (ER) | payer MEDICARE ==
[2024-12-07 16:26] VITALS: TEMP 98.3
[2024-12-07] MEDS: HYDROmorphone 1 MG/ML 1 ML SYRINGE IM STA ×2 (16:52→17:38)
--- NOTE | 2024-12-07 17:04 | XR ---
EXAMINATION TYPE: XR abdomen 1V DATE OF EXAM: 12/07/2024 COMPARISON: PET CT 11/07/2024, 05/29/2024, CT abdomen and pelvis 09/12/2015 HISTORY: Confirm PEG tube placement. TECHNIQUE: Single supine view the abdomen is obtained. This is performed after the administration of 30 cc of Isovue 300 through the PEG tube. FINDINGS: Small bowel demonstrates no evidence for dilatation or air fluid levels. Gas and fecal material is seen in non-distended colon. No convincing evidence for pneumoperitoneum. No unusual calcifications. Cholecystectomy clips in the right upper quadrant. PEG tube appears to be appropriately positioned within the left upper quadrant with contrast demonstr ated within the stomach. No distinct extravasation of contrast identified. The lung bases are clear. The osseous structures are intact. Degenerative changes of the lumbar spine. IMPRESSION: PEG tube appears to be appropriately positioned. [facility], , 12/07/2024 5:01 PM
--- NOTE | 2024-12-07 17:16 | ED ---
Recheck HPI - General Chief Complaint: Recheck/Abnormal Lab/Rx Stated Complaint: k tube fell out Time Seen by Provider: 12/07/24 16:30 Source: patient, RN notes reviewed Mode of arrival: wheelchair Limitations: no limitations - History of Present Illness Initial Comments: This is a 64-year-old male who presents to the emergency department for problems with his PEG tube. States that he had this placed in May. This fell out about an hour prior to arrival. He believes that his dog jumping on him is what caused it to fall out. Currently has an 18 Kenyan PEG tube. - Related Data Home Medications Medication Instructions Recorded Confirmed Apixaban [Eliquis] 1 tab PO DAILY 06/18/24 11/27/24 INSULIN LISPRO (humaLOG) [humaLOG] 3 units INJ TID 06/18/24 11/27/24 metFORMIN HCL 500 tab PO DAILY 06/18/24 11/27/24 Insulin Glargine,Hum.rec.anlog 18 units SQ HS 11/25/24 11/27/24 [Lantus Solostar Pen] Allergies Allergy/AdvReac Type Severity Reaction Status Date / Time insulin detemir Allergy Anaphylaxis Verified 12/07/24 16:25 [From Levemir] Review of Systems ROS Statement: Those systems with pertinent positive or pertinent negative responses have been documented in the HPI. ROS Other: All systems not noted in ROS Statement are negative. Past Medical History Past Medical History: Cancer, Diabetes Mellitus, Deep Vein Thrombosis (DVT), Hyperlipidemia, Hypertension, Myocardial Infarction ([place]), Pulmonary Embolus ([place]) Additional Past Medical History / Comment(s): hx pancreatitis, kidney stones, DVT & PE in 2021, Oropharyngeal cancer- radiation & chemo, htn & hyperlipidemia resolved after weight loss per pt, SOB & occasional dizzyness with activity, uses cane prn Last Myocardial Infarction Date:: 2018 History of Any Multi-Drug Resistant Organisms: None Reported Past Surgical History: Cholecystectomy, Heart Catheterization With Stent, Joint Replacement, Orthopedic Surgery Additional Past Surgical History / Comment(s): RIGHT KNEE REPLACED x3, LEFT ROTATOR CUFF, peg tube Past Anesthesia/Blood Transfusion Reactions: No Reported Reaction Date of Last Stent Placement:: 2018 Past Psychological History: ADD/ADHD, Depression Smoking Status: Current every day smoker - Past Family History Father Family Medical History: Diabetes Mellitus Additional Family Medical History / Comment(s): CABG Mother Family Medical History: Diabetes Mellitus Additional Family Medical History / Comment(s): Mother is living. General Exam Limitations: no limitations General appearance: alert, in no apparent distress Head exam: Present: atraumatic, normocephalic, normal inspection Respiratory exam: Present: normal lung sounds bilaterally. Absent: respiratory distress, wheezes, rales, rhonchi, stridor Cardiovascular Exam: Present: regular rate, normal rhythm GI/Abdominal exam: Present: other (PEG tube site is clean without any samaria rounding erythema, induration, or tenderness) Neurological exam: Present: alert, oriented X3, CN II-XII intact Psychiatric exam: Present: normal affect, normal mood Course Vital Signs 12/07/24 12/07/24 16:20 17:49 Temperature 98.3 F Pulse Rate 73 76 Respiratory 17 18 Rate Blood Pressure 102/72 110/72 O2 Sat by Pulse 97 98 Oximetry Procedures - Feeding Tube Replacement Reason for Replacement: fell out Initial Tube Inserted: greater than 2 weeks Type of Tube: gastrostomy Insertion Site Prior to Procedure: clean Kenyan Tube Size (F): 18 Balloon Size (mls): 9 Verification of Placement: KUB Tube Secured by: G-tube attachment device Patient Tolerated Procedure: well, no complications Medical Decision Making - Medical Decision Making This is a 64-year-old male who presents to the emergency department to have his PEG tube replaced. Was pt. sent in by a medical professional or institution? @ -No Did you speak to anyone other than the patient for history? @ -No Did you review nursing and triage notes? @ -Yes, and I agree, it is accurate with regards to the patient's symptoms. Were old charts reviewed? @ -No Differential Diagnosis? @ -PEG tube malfunction, mechanical failure, infection, tumor, this is not an to be an all-inclusive list. EKG interpreted by me (3pts min.)? @ -Not obtained X-rays interpreted by me (1pt min.)? @ -Abdominal x-ray obtained. My interpretation identifies the PEG tube in appropriate position. CT interpreted by me (1pt min.)? @ -Not obtained U/S interpreted by me (1pt. min.)? @ -Not obtained What testing was considered but not performed? (CT, X-rays, U/S, labs)? Why? @ -None What meds were considered but not given? Why? @ -None Did you discuss the management of the patient with other professionals? @ -No Did you reconcile home meds? @ -No Was smoking cessation discussed for >3mins.? @ -No Was critical care preformed (if so, how long)? @ -No Were there social determinants of health that impacted care today? How? (Homelessness, low income, unemployed, alcoholism, drug addiction, transportation, low edu. Level, literacy, decrease access to med. care, halfway, rehab)? @ -No Was there de-escalation of care discussed even if they declined? (Discuss DNR or withdrawal of care, Hospice)? @ -No What co-morbidities impacted this encounter? (DM, HTN, Smoking, COPD, CAD, Cancer, CVA, Hep., AIDS, mental health diagnosis, sleep apnea, morbid obesity)? @ -Cancer Was patient admitted / discharged? @ -Discharged. Patient's PEG tube had fallen out but had only been out for about an hour. 18 Kenyan PEG tube was replaced without difficulty. Abdominal x-ray performed confirming accurate placement. Contrast was also used and there was no extravasation. Patient discharged home in stable condition. Case discussed with ED attending, Dr. Rodriguez. Return precautions reviewed in depth, the patient is instructed to return to the emergency department with any new, worsening, or concerning symptoms. Patient verbalized understanding. Undiagnosed new problem with uncertain prognosis? @ -None Drug Therapy requiring intensive monitoring for toxicity (Heparin, Nitro, Insulin, Cardizem)? @ -None Were any procedures done? @ -Replacement of PEG tube Diagnosis/symptom? @ -PEG tube replacement Acute, or Chronic, or Acute on Chronic? @ -Acute Uncomplicated (without systemic symptoms) or Complicated (systemic symptoms)? @ -Uncomplicated Side effects of treatment? @ -None Exacerbation, Progression, or Severe Exacerbation] @ -Not applicable Poses a threat to life or bodily function? @ -No - Radiology Data Radiology results: report reviewed, image reviewed Disposition Clinical Impression: PEG (percutaneous endoscopic gastrostomy) adjustment/replacement/removal Disposition: HOME SELF-CARE Condition: Fair Instructions (If sedation given, give patient instructions): Percutaneous Endoscopic Gastrostomy (ED) Additional Instructions: Return to the emergency department with any new, worsening, or concerning symptoms. Follow up with your primary care provider in 1-2 days. Is patient prescribed a controlled substance at d/c from ED?: No Referrals: Stephanie Grider DO [Primary Care Provider] - 1-2 days Time of Disposition: 17:16
[2024-12-07 17:50] VITALS: BP 110/72; PULSE 76; RESP 18
== END 2024-12-07 17:49 | disposition home or self-care (01) ==
LOC: EC 16:03
DX: Z46.59 Encounter for fitting and adjustment of other gastrointestinal appliance and device (principal); F17.200 Nicotine dependence, unspecified, uncomplicated; Z85.818 Personal history of malignant neoplasm of other sites of lip, oral cavity, and pharynx; Z88.8 Allergy status to other drugs, medicaments and biological substances
CPT/HCPCS: 74018; 43762; 99283; 96372 ×2; J1171; Q9967

== ENCOUNTER 2025-01-04 13:21 | Inpatient (IN) | payer MEDICARE ==
--- NOTE | 2025-01-04 13:33 | ED ---
General Adult HPI - General Stated complaint: MEGGAN Time Seen by Provider: 01/04/25 13:24 Source: patient, EMS, RN notes reviewed, old records reviewed Mode of arrival: EMS Limitations: no limitations - History of Present Illness Initial comments: Patient is a 64-year-old male present to the emergency department with concerns with difficulty breathing. Symptoms started a few days ago. Patient has cough with mcmahon sputum. Patient does have history of stage IV lung cancer diagnosed just in July. Patient has completed first cycle of radiation and chemotherapy however has spread since that time. No fever. - Related Data Home Medications Medication Instructions Recorded Confirmed Insulin Glargine,Hum.rec.anlog 18 units SQ HS 11/25/24 01/04/25 [Lantus Solostar Pen] Albuterol Nebulized [Ventolin 2.5 mg INHALATION RT-TID 01/04/25 01/04/25 Nebulized] Allergies Allergy/AdvReac Type Severity Reaction Status Date / Time insulin detemir Allergy Anaphylaxis Verified 01/04/25 14:36 [From Levemir] Review of Systems ROS Statement: Those systems with pertinent positive or pertinent negative responses have been documented in the HPI. ROS Other: All systems not noted in ROS Statement are negative. Constitutional: Denies: fever ENT: Denies: ear pain Respiratory: Reports: cough, dyspnea Cardiovascular: Denies: chest pain Endocrine: Reports: fatigue Gastrointestinal: Denies: abdominal pain Past Medical History Past Medical History: Cancer, Diabetes Mellitus, Deep Vein Thrombosis (DVT), Hyperlipidemia, Hypertension, Myocardial Infarction ([place]), Pulmonary Embolus ([place]) Additional Past Medical History / Comment(s): hx pancreatitis, kidney stones, DVT & PE in 2021, Oropharyngeal cancer- radiation & chemo, htn & hyperlipidemia resolved after weight loss per pt, SOB & occasional dizzyness with activity, uses cane prn Last Myocardial Infarction Date:: 2019 History of Any Multi-Drug Resistant Organisms: None Reported Past Surgical History: Cholecystectomy, Heart Catheterization With Stent, Joint Replacement, Orthopedic Surgery Additional Past Surgical History / Comment(s): RIGHT KNEE REPLACED x3, LEFT ROTATOR CUFF, peg tube Past Anesthesia/Blood Transfusion Reactions: No Reported Reaction Date of Last Stent Placement:: 2018 Past Psychological History: ADD/ADHD, Depression Smoking Status: Current every day smoker - Past Family History Father Family Medical History: Diabetes Mellitus Additional Family Medical History / Comment(s): CABG Mother Family Medical History: Diabetes Mellitus Additional Family Medical History / Comment(s): Mother is living. General Exam Limitations: no limitations General appearance: alert Head exam: Present: normocephalic Eye exam: Present: normal appearance Neck exam: Present: normal inspection Respiratory exam: Present: rales Cardiovascular Exam: Present: regular rate, normal rhythm GI/Abdominal exam: Present: soft. Absent: tenderness Extremities exam: Present: normal inspection. Absent: pedal edema, calf tenderness Neurological exam: Present: alert Psychiatric exam: Present: normal affect, normal mood Skin exam: Present: normal color Course Vital Signs 01/04/25 01/04/25 01/04/25 13:24 13:37 13:54 Temperature 98.1 F Pulse Rate 76 120 H 128 H Respiratory 22 Rate Blood Pressure 119/88 O2 Sat by Pulse 99 Oximetry 01/04/25 14:48 Temperature Pulse Rate 122 H Respiratory 20 Rate Blood Pressure 103/77 O2 Sat by Pulse 98 Oximetry EKG Findings - EKG Results: EKG: interpreted by ERMD (Low QRS voltage), sinus rhythm, normal axis, normal ST/T EKG shows: tachycardia Medical Decision Making - Medical Decision Making Was pt. sent in by a medical professional or institution (, PA, [facility] [employer], urgent care, hospital, or [place] health [place] facility...) When possible be specific @ -No Did you speak to anyone other than the patient for history (EMS, parent, family, police, friend...)? What history was obtained from this source @ -EMS helps report history of patient's past medical history and transportation Did you review nursing and triage notes (agree or disagree)? Why? @ -I reviewed and agree with nursing and triage notes Were old charts reviewed (outside hosp., previous admission, EMS record, old EKG, old radiological studies, urgent care reports/EKG's, [place] health care facility records)? Report findings @ -No old charts were reviewed Differential Diagnosis (chest pain, altered mental status, abdominal pain women, abdominal pain men, vaginal bleeding, weakness, fever, dyspnea, syncope, headache, dizziness, GI bleed, back pain, seizure, CVA, palpatations, mental health, musculoskeletal)? @ -Differential Dyspnea: Coronary syndrome, arrhythmia, tamponade, asthma, COPD, pulmonary embolism, pneumonia, pneumothorax, pulmonary effusion, anaphylaxis, diabetic ketoacidosis, flailed chest, pulmonary contusion, diaphragmatic rupture, anemia, neuromuscular, this is not meant to be an all-inclusive list. EKG interpreted by me (3pts min.). @ -As above X-rays interpreted by me (1pt min.). @ -Chest x-ray shows hyperinflation CT interpreted by me (1pt min.). @ -None done U/S interpreted by me (1pt. min.). @ -None done What testing was considered but not performed or refused? (CT, X-rays, U/S, labs)? Why? @ -None What meds were considered but not given or refused? Why? @ -None Did you discuss the management of the patient with other professionals (professionals i.e. , PA, [employer], lab, RT, psych nurse, social work msw, cardiographer, teacher, affirmative action officer, pillowcase folder)? Give summary @ -[facility] Dr. Echavarria to admit covering Dr. Grider Was smoking cessation discussed for >3mins.? @ -No Was critical care preformed (if so, how long)? @ -No Were there social determinants of health that impacted care today? How? (Homelessness, low income, unemployed, alcoholism, drug addiction, transportation, low edu. Level, literacy, decrease access to med. care, shelter, rehab)? @ -No Was there de-escalation of care discussed even if they declined (Discuss DNR or withdrawal of care, Hospice)? DNR status @ -No What co-morbidities impacted this encounter? (DM, HTN, Smoking, COPD, CAD, Cancer, CVA, ARF, Chemo, Hep., AIDS, mental health diagnosis, sleep apnea, morbid obesity)? @ -Lung cancer Was patient admitted / discharged? Hospital course, mention meds given and route, prescriptions, significant lab abnormalities, going to OR and other pertinent info. @ -Patient presents with dyspnea. Rales on exam. Chest x-ray is not overly concerning. Initial evaluation with blood work unremarkable. Patient will be admitted with continued nebulizers and oxygen and pulmonary consult. Patient reevaluated and somewhat improved. Patient updated. Admission orders written. Undiagnosed new problem with uncertain prognosis? @ -No Drug Therapy requiring intensive monitoring for toxicity (Heparin, Nitro, Insulin, Cardizem)? @ -No Were any procedures done? @ -No Diagnosis/symptom? @ -COPD Acute, or Chronic, or Acute on Chronic? @ -Acute Uncomplicated (without systemic symptoms) or Complicated (systemic symptoms)? @ -Complicated with hypoxia and route Side effects of treatment? @ -No Exacerbation, Progression, or Severe Exacerbation? @ -Exacerbation Poses a threat to life or bodily function? How? (Chest pain, [place], [place], pneumonia, PE, COPD, DKA, ARF, appy, cholecystitis, CVA, Diverticulitis, Homicidal, Suicidal, threat to staff... and all critical care pts) @ -Threat to pulmonary function - Lab Data Result diagrams: 01/04/25 13:47 01/04/25 13:47 Lab Results 01/04/25 01/04/25 01/04/25 Range/Units 13:47 13:47 13:47 WBC 12.49 H (4.50-10.00) 10*3/uL RBC 3.47 L (4.40-5.60) 10*6/uL Hgb 11.0 L (13.0-17.0) g/dL Hct 33.3 L (39.6-50.0) % MCV 96.0 (80.0-97.0) fL MCH 31.7 (27.0-32.0) pg MCHC 33.0 (32.0-37.0) g/dL Plt Count 342 (140-440) 10*3/uL MPV 9.6 (9.5-12.2) fL Immature Gran % (Auto) 0.5 % Neutrophils % 91.2 % Lymphocytes % 3.0 % Monocytes % 5.0 % Eosinophils % 0.0 % Basophils % 0.3 % Immature Gran # 0.06 H (0.00-0.04) 10*3/uL Neutrophils # 11.39 H (1.80-7.70) 10*3/uL Lymphocytes # 0.37 L (0.90-5.00) 10*3/uL Monocytes # 0.63 (0.20-1.00) 10*3/uL Eosinophils # 0.00 L (0.04-0.35) 10*3/uL Basophils # 0.04 (0.00-0.10) 10*3/uL PT 11.7 (10.0-12.5) sec INR 1.1 (<1.2) APTT 22.4 (22.0-30.0) sec D-Dimer (<0.60) mg/L FEU Sodium 137 (137-145) mmol/L Potassium 4.8 (3.5-5.1) mmol/L Chloride 95 L (98-107) mmol/L Carbon Dioxide 29 (22-30) mmol/L Anion Gap 13 mmol/L BUN 26 H (9-20) mg/dL Creatinine 0.60 L (0.66-1.25) mg/dL Est GFR (CKD-EPI)AfAm >90 (>60 ml/min/1.73 sqM) Est GFR (CKD-EPI)NonAf >90 (>60 ml/min/1.73 sqM) Glucose 221 H (74-99) mg/dL Lactic Ac Sepsis Rflx Plasma Lactic Acid Calixto (0.7-2.0) mmol/L Calcium 9.8 (8.4-10.2) mg/dL Magnesium 1.9 (1.6-2.3) mg/dL Total Bilirubin 1.1 (0.2-1.3) mg/dL AST 54 (17-59) U/L ALT 50 H (4-49) U/L Alkaline Phosphatase 73 (38-126) U/L Total Protein 7.3 (6.3-8.2) g/dL Albumin 3.8 (3.5-5.0) g/dL Influenza Type A (PCR) (Not Detectd) Influenza Type B (PCR) (Not Detectd) RSV (PCR) (Not Detectd) SARS-CoV-2 (PCR) (Not Detectd) 01/04/25 01/04/25 01/04/25 Range/Units 13:47 13:51 13:57 WBC (4.50-10.00) 10*3/uL RBC (4.40-5.60) 10*6/uL Hgb (13.0-17.0) g/dL Hct (39.6-50.0) % MCV (80.0-97.0) fL MCH (27.0-32.0) pg MCHC (32.0-37.0) g/dL Plt Count (140-440) 10*3/uL MPV (9.5-12.2) fL Immature Gran % (Auto) % Neutrophils % % Lymphocytes % % Monocytes % % Eosinophils % % Basophils % % Immature Gran # (0.00-0.04) 10*3/uL Neutrophils # (1.80-7.70) 10*3/uL Lymphocytes # (0.90-5.00) 10*3/uL Monocytes # (0.20-1.00) 10*3/uL Eosinophils # (0.04-0.35) 10*3/uL Basophils # (0.00-0.10) 10*3/uL PT (10.0-12.5) sec INR (<1.2) APTT (22.0-30.0) sec D-Dimer 0.90 H (<0.60) mg/L FEU Sodium (137-145) mmol/L Potassium (3.5-5.1) mmol/L Chloride (98-107) mmol/L Carbon Dioxide (22-30) mmol/L Anion Gap mmol/L BUN (9-20) mg/dL Creatinine (0.66-1.25) mg/dL Est GFR (CKD-EPI)AfAm (>60 ml/min/1.73 sqM) Est GFR (CKD-EPI)NonAf (>60 ml/min/1.73 sqM) Glucose (74-99) mg/dL Lactic Ac Sepsis Rflx Plasma Lactic Acid Calixto 3.0 H* (0.7-2.0) mmol/L Calcium (8.4-10.2) mg/dL Magnesium (1.6-2.3) mg/dL Total Bilirubin (0.2-1.3) mg/dL AST (17-59) U/L ALT (4-49) U/L Alkaline Phosphatase (38-126) U/L Total Protein (6.3-8.2) g/dL Albumin (3.5-5.0) g/dL Influenza Type A (PCR) Not Detected (Not Detectd) Influenza Type B (PCR) Not Detected (Not Detectd) RSV (PCR) Not Detected (Not Detectd) SARS-CoV-2 (PCR) Not Detected (Not Detectd) 01/04/25 Range/Units 14:09 WBC (4.50-10.00) 10*3/uL RBC (4.40-5.60) 10*6/uL Hgb (13.0-17.0) g/dL Hct (39.6-50.0) % MCV (80.0-97.0) fL MCH (27.0-32.0) pg MCHC (32.0-37.0) g/dL Plt Count (140-440) 10*3/uL MPV (9.5-12.2) fL Immature Gran % (Auto) % Neutrophils % % Lymphocytes % % Monocytes % % Eosinophils % % Basophils % % Immature Gran # (0.00-0.04) 10*3/uL Neutrophils # (1.80-7.70) 10*3/uL Lymphocytes # (0.90-5.00) 10*3/uL Monocytes # (0.20-1.00) 10*3/uL Eosinophils # (0.04-0.35) 10*3/uL Basophils # (0.00-0.10) 10*3/uL PT (10.0-12.5) sec INR (<1.2) APTT (22.0-30.0) sec D-Dimer (<0.60) mg/L FEU Sodium (137-145) mmol/L Potassium (3.5-5.1) mmol/L Chloride (98-107) mmol/L Carbon Dioxide (22-30) mmol/L Anion Gap mmol/L BUN (9-20) mg/dL Creatinine (0.66-1.25) mg/dL Est GFR (CKD-EPI)AfAm (>60 ml/min/1.73 sqM) Est GFR (CKD-EPI)NonAf (>60 ml/min/1.73 sqM) Glucose (74-99) mg/dL Lactic Ac Sepsis Rflx Y Plasma Lactic Acid Calixto (0.7-2.0) mmol/L Calcium (8.4-10.2) mg/dL Magnesium (1.6-2.3) mg/dL Total Bilirubin (0.2-1.3) mg/dL AST (17-59) U/L ALT (4-49) U/L Alkaline Phosphatase (38-126) U/L Total Protein (6.3-8.2) g/dL Albumin (3.5-5.0) g/dL Influenza Type A (PCR) (Not Detectd) Influenza Type B (PCR) (Not Detectd) RSV (PCR) (Not Detectd) SARS-CoV-2 (PCR) (Not Detectd) Disposition Clinical Impression: Acute exacerbation of chronic obstructive pulmonary disease Disposition: ADMITTED IP TO THIS HOSP Is patient prescribed a controlled substance at d/c from ED?: No Time of Disposition: 15:03
[2025-01-04] MEDS: IPRATROPIUM-ALBUTEROL 3 ML NEB INHALATION STA (13:37)
[2025-01-04 13:52] LABS: Basophils # (A) 0.04 10*3/uL (0.00-0.10); Basophils % (A) 0.3 %; HCT 33.3 % (39.6-50.0); Lymphocytes # (A) 0.37 10*3/uL (0.90-5.00); MCH 31.7 pg (27.0-32.0); Mean Platelet Volume 9.6 fL (9.5-12.2); Monocytes # (A) 0.63 10*3/uL (0.20-1.00); Neutrophils # (A) 11.39 10*3/uL (1.80-7.70); Neutrophils % (A) 91.2 %; Platelet Count 342 10*3/uL (140-440); RBC 3.47 10*6/uL (4.40-5.60); RDW 13.6 % (11.5-14.5); WBC 12.49 10*3/uL (4.50-10.00)
[2025-01-04 14:06] LABS: INR 1.1 (<1.2); Partial Thromboplastin Time 22.4 sec (22.0-30.0); Prothrombin Time 11.7 sec (10.0-12.5)
[2025-01-04 14:07] LABS: ALT 50 U/L (4-49); AST 54 U/L (17-59); African American GFR (CKD) >90 (>60 ml/min/1.73 sqM); Albumin 3.8 g/dL (3.5-5.0); Alkaline Phosphatase 73 U/L (38-126); Anion Gap 13 mmol/L; Blood Urea Nitrogen 26 mg/dL (9-20); Calcium 9.8 mg/dL (8.4-10.2); Carbon Dioxide 29 mmol/L (22-30); Chloride 95 mmol/L (98-107); Glucose 221 mg/dL (74-99); Magnesium 1.9 mg/dL (1.6-2.3); Non-African American GFR(CKD) >90 (>60 ml/min/1.73 sqM); Potassium 4.8 mmol/L (3.5-5.1); Sodium 137 mmol/L (137-145); Total Bilirubin 1.1 mg/dL (0.2-1.3); Total Protein 7.3 g/dL (6.3-8.2)
[2025-01-04 14:33] LABS: Influenza A Not Detected (Not Detectd); Influenza B Not Detected (Not Detectd); RSV Not Detected (Not Detectd)
--- NOTE | 2025-01-04 14:44 | XR ---
EXAMINATION TYPE: XR chest 2V DATE OF EXAM: 01/04/2025 2:27 PM COMPARISON: Chest radiographs from 07/19/2019 CLINICAL INDICATION: Male, 64 years old with history of difficulty breathing; TECHNIQUE: XR chest 2V Frontal and lateral views of the chest. FINDINGS: Lungs/Pleura: There is no evidence of pleural effusion, focal consolidation, or pneumothorax. Pulmonary vascularity: Unremarkable. Heart/mediastinum: Cardiomediastinal silhouette is unremarkable. Musculoskeletal: No acute osseous pathology. IMPRESSION: No acute cardiopulmonary disease/process. [facility], , 01/04/2025 2:42 PM
[2025-01-04] MEDS ORDERED: NALOXONE 0.4 MG/ML 1 ML VIAL IVP PRN (15:04)
[2025-01-04] MEDS ORDERED: IPRATROPIUM-ALBUTEROL 3 ML NEB INHALATION PRN (15:04)
[2025-01-04] MEDS: IPRATROPIUM-ALBUTEROL 3 ML NEB INHALATION SCH ×2 (15:17→19:30)
[2025-01-04] MEDS: methylPREDNISolone SOD SUCCI 125 MG/2 ML VIAL IV STA (15:39)
[2025-01-04] MEDS: AZITHROMYCIN 500 MG in SODIUM CHLORIDE 0.9% 250 ML IVPB ONE (16:54)
[2025-01-04] MEDS: AZITHROMYCIN 500 MG in SODIUM CHLORIDE 0.9% 250 ML IVPB SCH (16:54)
--- NOTE | 2025-01-04 18:00 | CT ---
EXAMINATION TYPE: CT angio chest DATE OF EXAM: 01/04/2025 5:15 PM COMPARISON: 11/27/2024 CLINICAL INDICATION: Male, 64 years old with history of esteban; ESTEBAN, stage 4 lung CA TECHNIQUE/CONTRAST: CTA scan of the thorax is performed with IV Contrast, patient injected with 100 ml mL of Isovue 370, MIP images are created and reviewed these are created on a separate workstation.. CT DLP: 227.3 mGycm, Automated exposure control for dose reduction was used. FINDINGS: Lungs/Pleura: r scattered airspace seen throughout the lungs. Spiculated left lower lung nodule with central cavitation focus measuring 10 mm. Series 501 image 72. Airway: Large airways are patent. Heart: Size within normal limits. Mild coronary artery calcifications present. Aortic valve calcifica tions. Vasculature: There is no evidence for a filling defect within the pulmonary vasculature to suggest ac johana pulmonary embolism. The pulmonary artery is of normal size. Mediastinum: No gross evidence of adenopathy. Musculoskeletal: Moderate disc degeneration changes are present throughout the thoracolumbar spine se condary to osteophyte formation and facet joint arthropathy. Large osteophytes are anterior to the sp ine some of which are bridging suggestive of diffuse idiopathic skeletal hyperostosis. Soft Tissues/lymph nodes: Unremarkable. Lower neck: No significant findings. Upper Abdomen: PEG tube partially visualized. Cystic change in the pancreatic tail similar to prior . IMPRESSION: 1. No evidence of pulmonary embolism. 2. Scattered patchy airspace opacities most pronounced on the right concerning for pneumonia. 3. Left lower lobe pulmonary nodule with spiculated borders with a single focus of cavitation possibl y secondary to patient's history of malignancy. [facility], , 01/04/2025 5:58 PM
[2025-01-04 18:52] LABS: Glucose,Whole Blood 267 mg/dL (70-110)
[2025-01-04] MEDS: INSULIN GLARGINE (LANTUS) 100 UNIT/ML SYR SQ SCH (21:38)
[2025-01-04 21:39] LABS: Glucose,Whole Blood 248 mg/dL (70-110)
[2025-01-04] MEDS: methylPREDNISolone SOD SUCCI 125 MG/2 ML VIAL IV SCH (21:39)
[2025-01-05] MEDS: PIPERACILLIN-TAZOBACTAM 3.375 GM in SODIUM CHLORIDE 0.9% 100 ML IVPB SCH (10:35)
--- NOTE | 2025-01-05 11:07 | P.HPIM ---
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 Because of this he has dysarthria and dysphagia. He is s/p PEG tube placement He is diabetic on Lantus. Presents because of shortness of breath. Patient also with some cough and what phlegm. No significant chest pain Complains from constipation. No urinary complaints. No headache or dizziness He is barely able to walk currently. At home he walks mainly across the house He is afebrile hemodynamically stable he is 90s percent saturation on 3 L oxygen via nasal cannula Labs showed leukocytosis 12.9 hemoglobin 11. Glucose more than 200 rest of labs reviewed look stable. Influenza and COVID were negative D-dimer was elevated 0.9 CTA of the chest was negative for PE but showing scattered patchy airspace opacity concerning for pneumonia. Also also he has left lower lobe pulmonary nodule with spiculated margins and central cavity which could be related to his history of cancer EKG showing sinus tachycardia at [address]-T changes Review of Systems Review of systems CONSTITUTIONAL: No fever, no malaise, no fatigue. HEENT: No recent visual problems or hearing problems. Denied any sore throat. CARDIOVASCULAR: No orthopnea, PND, no palpitations, no syncope. -PULMONARY: As above GASTROINTESTINAL: No diarrhea, no nausea, no vomiting, no abdominal pain. Normoactive bowel sounds. NEUROLOGICAL: No headaches, no weakness, no numbness. HEMATOLOGICAL: Denies any bleeding or petechiae. GENITOURINARY: Denies any burning micturition, frequency, or urgency. MUSCULOSKELETAL/RHEUMATOLOGICAL: Denies any joint pain, swelling, or any muscle pain. ENDOCRINE: Denies any polyuria or polydipsia. Past Medical History Past Medical History: Cancer, Diabetes Mellitus, Deep Vein Thrombosis (DVT), Hyperlipidemia, Hypertension, Myocardial Infarction ([place]), Pulmonary Embolus (PE) Additional Past Medical History / Comment(s): hx pancreatitis, kidney stones, DVT & PE in 2021, Oropharyngeal cancer- radiation & chemo, htn & hyperlipidemia resolved after weight loss per pt, SOB & occasional dizzyness with activity, uses cane prn Last Myocardial Infarction Date:: 2018 History of Any Multi-Drug Resistant Organisms: None Reported Past Surgical History: Cholecystectomy, Heart Catheterization With Stent, Joint Replacement, Orthopedic Surgery Additional Past Surgical History / Comment(s): RIGHT KNEE REPLACED x3, LEFT ROTATOR CUFF, peg tube Past Anesthesia/Blood Transfusion Reactions: No Reported Reaction Date of Last Stent Placement:: 2018 Past Psychological History: ADD/ADHD, Depression Additional Psychological History / Comment(s): ADHD. Smoking Status: Former smoker Past Alcohol Use History: Abuse, Heavy Additional Past Alcohol Use History / Comment(s): Pt started smoking in 1975, used to smoke one ppd, currently smoking <1/2ppd. hx drinking liqour, 2-3 drinks per day. no alcohol intake since Apr 2024. Past Drug Use History: Marijuana Additional Drug Use History / Comment(s): once a month-advised none 24 hrs prior to proc. - Past Family History Father Family Medical History: Diabetes Mellitus Additional Family Medical History / Comment(s): CABG Mother Family Medical History: Diabetes Mellitus Additional Family Medical History / Comment(s): Mother is living. Medications and Allergies Home Medications Medication Instructions Recorded Confirmed Type Insulin Glargine,Hum.rec.anlog 18 units SQ HS 11/25/24 01/04/25 History [Lantus Solostar Pen] Albuterol Nebulized [Ventolin 2.5 mg INHALATION RT-TID 01/04/25 01/04/25 History Nebulized] Allergies Allergy/AdvReac Type Severity Reaction Status Date / Time insulin detemir Allergy Anaphylaxis Verified 01/04/25 14:36 [From Levemir] Physical Exam Vitals: Vital Signs Temp Pulse Pulse Resp BP BP Pulse Ox 01/05/25 07:50 97.4 F L 109 H 20 104/77 94 L 01/05/25 07:00 90 20 145/85 99 01/05/25 06:43 90 01/05/25 06:33 86 01/05/25 06:00 89 16 133/100 98 01/05/25 05:24 83 16 139/91 99 01/05/25 04:00 80 18 138/93 100 01/05/25 01:00 79 18 117/79 95 01/04/25 23:00 86 18 134/90 99 01/04/25 20:00 89 20 107/77 97 01/04/25 18:53 89 20 119/82 97 01/04/25 16:50 105 H 24 120/78 100 01/04/25 14:48 122 H 20 103/77 98 04/27/25 13:54 128 H 01/04/25 13:37 120 H 01/04/25 13:24 98.1 F 76 22 119/88 99 Intake and Output 01/04/25 01/05/25 01/05/25 22:59 06:59 14:59 Other: Voiding Method Urinal Weight 63.503 kg GENERAL: The patient is alert and oriented x3, not in any acute distress. Well developed, well nourished. -HEENT: Pupils are round and equally reacting to light. EOMI. No scleral icterus. No conjunctival pallor. Normocephalic, atraumatic. No pharyngeal erythema. No thyromegaly. Dysarthric speech CARDIOVASCULAR: S1 and S2 present. No murmurs, rubs, or gallops. -PULMONARY: Chest is clear to auscultation, no wheezing , bilateral crepitation with tachypnea rackles. ABDOMEN: Soft, nontender, nondistended, normoactive bowel sounds. No palpable organomegaly. MUSCULOSKELETAL: No joint swelling or deformity. EXTREMITIES: No cyanosis, clubbing, or pedal edema. NEUROLOGICAL: Gross neurological examination did not reveal any focal deficits. SKIN: No rashes. no petechiae. Results CBC & Chem 7: 01/04/25 13:47 01/04/25 13:47 Labs: Abnormal Lab Results - Last 24 Hours (Table) 01/04/25 01/04/25 01/04/25 Range/Units 13:47 13:47 13:47 WBC 12.49 H (4.50-10.00) 10*3/uL RBC 3.47 L (4.40-5.60) 10*6/uL Hgb 11.0 L (13.0-17.0) g/dL Hct 33.3 L (39.6-50.0) % Immature Gran # 0.06 H (0.00-0.04) 10*3/uL Neutrophils # 11.39 H (1.80-7.70) 10*3/uL Lymphocytes # 0.37 L (0.90-5.00) 10*3/uL Eosinophils # 0.00 L (0.04-0.35) 10*3/uL D-Dimer (<0.60) mg/L FEU Chloride 95 L (98-107) mmol/L BUN 26 H (9-20) mg/dL Creatinine 0.60 L (0.66-1.25) mg/dL Glucose 221 H (74-99) mg/dL POC Glucose (mg/dL) (70-110) mg/dL Plasma Lactic Acid Calixto 3.0 H* (0.7-2.0) mmol/L ALT 50 H (4-49) U/L 01/04/25 01/04/25 01/04/25 Range/Units 13:57 18:50 21:37 WBC (4.50-10.00) 10*3/uL RBC (4.40-5.60) 10*6/uL Hgb (13.0-17.0) g/dL Hct (39.6-50.0) % Immature Gran # (0.00-0.04) 10*3/uL Neutrophils # (1.80-7.70) 10*3/uL Lymphocytes # (0.90-5.00) 10*3/uL Eosinophils # (0.04-0.35) 10*3/uL D-Dimer 0.90 H (<0.60) mg/L FEU Chloride (98-107) mmol/L BUN (9-20) mg/dL Creatinine (0.66-1.25) mg/dL Glucose (74-99) mg/dL POC Glucose (mg/dL) 267 H 248 H (70-110) mg/dL Plasma Lactic Acid Calixto (0.7-2.0) mmol/L ALT (4-49) U/L Thrombosis Risk Factor Assmnt - Choose All That Apply Any of the Below Risk Factors Present?: Yes Each Factor Represents 1 point: Abnormal pulmonary function (COPD) Other Risk Factors: Yes Each Risk Factor Represents 2 Points: Age 61-74 years, Malignancy Thrombosis Risk Factor Assessment Total Risk Factor Score: 5 Thrombosis Risk Factor Assessment Level: High Risk Assessment and Plan Assessment: Acute COPD exacerbation Pneumonia is suspected Malignant neoplasm of the oropharynx with laryngeal mass, squamous cell carcinoma of the tongue Dysarthria regarding his mouth tumor Dysphagia status post PEG tube Diabetes mellitus type 2 on Lantus Plan: Continue Zithromax continue Zosyn Continue with IV Solu-Medrol Continue with bronchodilator Pulmonary team consult Continue with oxygen therapy Labs and medication were reviewed.. Continue same treatment. Continue with symptomatic treatment. Resume home medication. Monitor labs and vitals. DVT and GI prophylaxis. Further recommendations as per clinical course of the patient DVT prophylaxis: Subcutaneous heparin GI Prophylaxis: Pepcid PT/OT: Pending Prognosis is guarded
--- NOTE | 2025-01-05 13:58 | P.CNPUL ---
History of Present Illness Consult date: 01/05/25 Requesting physician: Chad E Herbert Reason for consult: dyspnea Chief complaint: Shortness of breath, cough, congestion History of present illness: This is a 64-year-old male patient with a known history of diabetes mellitus type 2, hypertension, hyperlipidemia, previous alcoholism, PE/DVT maintained on Eliquis, chronic and ongoing tobacco dependence. 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 He did receive a PEG tube as well. PET scan from November 08, 2024 revealed mixed response to therapy with improvement in ulcerated tongue base activity and bilateral lymph nodes however there is develo pment of a right perihilar nodule consistent with metastasis. On November 27, 2024 he did undergo bronchoscopy with biopsies that were positive for squamous cell carcinoma, consistent with probable metastasis from head and neck primary. He presented here to the emergency room yesterday with complaints of increasing shortness of breath, cough and congestion. Chest x-ray revealed no acute cardiopulmonary process. CT angiogram revealed no evidence of pulmonary embolism. There is scattered patchy airspace opacities most pronounced on the right concerning for pneumonia. Left lower lobe pulmonary nodule with spiculated borders with a single focus of cavitation possibly secondary to metastasis. White count 12.4. Hemoglobin 11.0. Platelets 342. D-dimer 0.90. Sodium 137. Potassium 4.8. Bicarb 29. BUN 26. Creatinine 0.60. Glucose 221. Viral screen negative for influenza A/B, COVID, RSV. He is seen today in consultation on the regular medical floor. He is currently resting in bed. Awake and alert in no acute distress. Maintaining O2 saturations in the 90s on 3 L/min per nasal cannula. He is afebrile. Hemodynamically stable. Review of Systems REVIEW OF SYSTEMS: CONSTITUTIONAL: Positive for significant weight loss. EYES: Denies change in vision. EARS, NOSE, MOUTH, THROAT: Denies headaches, denies sore throat. CARDIOVASCULAR: Denies chest pain, palpitations or syncopal episodes. RESPIRATORY: Positive for shortness of breath, cough, congestion no hemoptysis. GASTROINTESTINAL: Denies change in appetite, denies abdominal pain GENITOURINARY: Denies hematuria, denies infections. MUSKULOSKELETAL: Denies pain, denies swelling. INTEGUMENTARY: Denies rash, denies eczema. NEUROLOGICAL: Denies recent memory loss, no recent seizure activity. PSYCHIATRIC: Denies anxiety, denies depression. HEMATOLOGIC/LYMPHATIC: Denies anemia, denies enlarged lymph nodes. Past Medical History Past Medical History: Cancer, Diabetes Mellitus, Deep Vein Thrombosis (DVT), Hyperlipidemia, Hypertension, Myocardial Infarction ([place]), Pulmonary Embolus ([place]) Additional Past Medical History / Comment(s): hx pancreatitis, kidney stones, DVT & PE in 2021, Oropharyngeal cancer- radiation & chemo, htn & hyperlipidemia resolved after weight loss per pt, SOB & occasional dizzyness with activity, uses cane prn Last Myocardial Infarction Date:: 2018 History of Any Multi-Drug Resistant Organisms: None Reported Past Surgical History: Cholecystectomy, Heart Catheterization With Stent, Joint Replacement, Orthopedic Surgery Additional Past Surgical History / Comment(s): RIGHT KNEE REPLACED x3, LEFT ROTATOR CUFF, peg tube Past Anesthesia/Blood Transfusion Reactions: No Reported Reaction Date of Last Stent Placement:: 2018 Past Psychological History: ADD/ADHD, Depression Additional Psychological History / Comment(s): ADHD. Smoking Status: Former smoker Past Alcohol Use History: Abuse, Heavy Additional Past Alcohol Use History / Comment(s): Pt started smoking in 1975, used to smoke one ppd, currently smoking <1/2ppd. hx drinking liqour, 2-3 drinks per day. no alcohol intake since Apr 2024. Past Drug Use History: Marijuana Additional Drug Use History / Comment(s): once a month-advised none 24 hrs prior to proc. - Past Family History Father Family Medical History: Diabetes Mellitus Additional Family Medical History / Comment(s): CABG Mother Family Medical History: Diabetes Mellitus Additional Family Medical History / Comment(s): Mother is living. Medications and Allergies Home Medications Medication Instructions Recorded Confirmed Type Insulin Glargine,Hum.rec.anlog 18 units SQ HS 11/25/24 01/04/25 History [Lantus Solostar Pen] Albuterol Nebulized [Ventolin 2.5 mg INHALATION RT-TID 01/04/25 01/04/25 History Nebulized] Allergies Allergy/AdvReac Type Severity Reaction Status Date / Time insulin detemir Allergy Anaphylaxis Verified 01/04/25 14:36 [From Levemir] Physical Exam Vitals: Vital Signs Temp Pulse Pulse Resp BP BP Pulse Ox 01/05/25 12:17 97.6 F 89 20 103/67 100 01/05/25 11:57 96 01/05/25 11:49 92 01/05/25 07:50 97.4 F L 109 H 20 104/77 94 L 01/05/25 07:00 90 20 145/85 99 01/05/25 06:43 90 01/05/25 06:33 86 01/05/25 06:00 89 16 133/100 98 01/05/25 05:24 83 16 139/91 99 01/05/25 04:00 80 18 138/93 100 01/05/25 01:00 79 18 117/79 95 01/04/25 23:00 86 18 134/90 99 01/04/25 20:00 89 20 107/77 97 01/04/25 18:53 89 20 119/82 97 01/04/25 16:50 105 H 24 120/78 100 01/04/25 14:48 122 H 20 103/77 98 01/04/25 13:54 128 H 01/04/25 13:37 120 H 01/04/25 13:24 98.1 F 76 22 119/88 99 Intake and Output 01/04/25 01/05/25 01/05/25 22:59 06:59 14:59 Other: Voiding Method Urinal Weight 63.503 kg GENERAL EXAM: Alert, frail, disheveled, 64-year-old male, on 3 L nasal cannula, fairly comfortable in no apparent distress. HEAD: Normocephalic. EYES: Normal reaction of pupils, equal size. NOSE: Clear with pink turbinates. THROAT: No erythema or exudates. NECK: No masses, no JVD. CHEST: No chest wall deformity. LUNGS: Equal air entry with bilateral scattered rhonchi right greater than left. CVS: S1 and S2 normal with no audible murmur, regular rhythm. ABDOMEN: No hepatosplenomegaly, normal bowel sounds, no guarding or rigidity. SPINE: No scoliosis or deformity SKIN: No rashes CENTRAL NERVOUS SYSTEM: No focal deficits, tone is normal in all 4 extremities. EXTREMITIES: There is no peripheral edema. No clubbing, no cyanosis. Peripheral pulses are intact. Results - Laboratory Findings CBC and BMP: 01/04/25 13:47 01/04/25 13:47 PT/INR, D-dimer PT 11.7 sec (10.0-12.5) 01/04/25 13:47 INR 1.1 (<1.2) 01/04/25 13:47 D-Dimer 0.90 mg/L FEU (<0.60) H 01/04/25 13:57 Abnormal lab findings: Abnormal Labs 01/04/25 01/04/25 01/04/25 13:47 13:47 13:47 WBC 12.49 H RBC 3.47 L Hgb 11.0 L Hct 33.3 L Immature Gran # 0.06 H Neutrophils # 11.39 H Lymphocytes # 0.37 L Eosinophils # 0.00 L D-Dimer Chloride 95 L BUN 26 H Creatinine 0.60 L Glucose 221 H POC Glucose (mg/dL) Plasma Lactic Acid Calixto 3.0 H* ALT 50 H 01/04/25 01/04/25 01/04/25 13:57 18:50 21:37 WBC RBC Hgb Hct Immature Gran # Neutrophils # Lymphocytes # Eosinophils # D-Dimer 0.90 H Chloride BUN Creatinine Glucose POC Glucose (mg/dL) 267 H 248 H Plasma Lactic Acid Calixto ALT - Diagnostic Findings Chest x-ray: image reviewed Assessment and Plan Assessment: Acute hypoxic respiratory failure secondary to an acute pneumonia. Possible aspiration versus postobstructive versus community-acquired. Pulmonary embolism ruled out. Viral screen negative for influenza A/B, RSV, COVID Stage IV squamous cell carcinoma of the tongue initially diagnosed in July 2024. Status post chemo/radiation. PET scan from November 07, 2024 revealed mixed response to therapy with improvement in ulcerated tongue base FDG activity and bilateral lymph nodes however there was development of a right perihilar FDG avid pulmonary nodule. Bronchoscopy with biopsy November 27, 2024 of the lung lesion also positive for squamous cell carcinoma Chronic dysphagia post radiation therapy, has a PEG tube in place Chronic and ongoing tobacco dependence Diabetes mellitus, type II Hypertension Hyperlipidemia Previous history of alcoholism History of marijuana use History of PE/DVT, anticoagulated with Eliquis Plan: The patient was seen and evaluated Chest x-ray, CT scan, labs and medications reviewed Initiated on Zosyn Heparin for DVT prophylaxis DuoNeb inhalations IV Solu-Medrol Pepcid for GI prophylaxis Obtain a sputum sample Titrate the FiO2 as tolerated Oncology consult Dietary consult for tube feeding recommendations Educated regarding complete smoking cessation We will continue to follow and make further recommendations based on his clinical status I have personally seen and examined the patient, performed the documentation and the assessment and plan as written. Number of minutes spent on the visit: 20 Dictation was produced using [employer] dictation software. Please excuse any grammatical, word or spelling errors. Time with Patient: Greater than 30
[2025-01-05] MEDS ORDERED: DEXTROSE 50% SYRINGE 50 ML IVP PRN (14:32)
[2025-01-05 17:04] LABS: Glucose,Whole Blood 330 mg/dL (70-110)
[2025-01-05] MEDS: INSULIN LISPRO (HumaLOG) 100 UNIT/ML 10 mL VL SQ SCH (17:16)
--- NOTE | 2025-01-05 17:50 | P.CONS ---
History of Present Illness - Reason for Consult Consult date: 01/05/25 lung cancer Requesting physician: Raymond Curran - Chief Complaint MEGGAN - History of Present Illness Mr. 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 He initially presented to [facility] on 05/11/2024 with 1 month history of progressive dysphagia and sore th roat. CT of the neck with contrast at that time revealed abnormal base of the tongue lesion with frothy extension of gas extending anteriorly at least 3 cm into the neck along with bilateral lymphadenopathy in the right/left neck with lymph nodes each measuring 1.7 cm in size. He was transferred to [facility] for additional ENT evaluation. He underwent direct microlaryngoscopy with biopsy and flexible esophagoscopy on 05/13/2024 where he was noted to have ulcerative mass involving the midline base of tongue extending across the lingual surface of the epiglottis with biopsy of the lesion being positive for p16 positive invasive squamous cell carcinoma. During his hospitalization, he did have PEG tube placed due to failed swallow study. PET/CT on 05/29/2024 noted FDG avid is a tongue lesion extending into the anterior neck and into the base of the epiglottis with enlarged bilateral cervical lymph nodes. 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 Given the central location of disease as well as being p16 positive, it was recommended he undergo concurrent chemoradiotherapy. Cycle 1 of concurrent chemoradiotherapy with weekly cisplatin 40 mg/m was initiated on 06/18/2024 and completed cycle 6 on 07/24/2024. Radiation therapy was completed on 08/05/2024. He slowly has transitioned himself from tube feedings to oral int suzanna and has not used tube feedings in over a month with intermittent odynophagia resolved with ibuprofen as needed. PET/CT on 11/07/2024 noted mild residual FDG uptake along the hyoid bone with no FDG avid cervical lymphadenopathy, but did note new 1.2 cm right perihilar nodule that was FDG avid. Nasopharyngoscopy with vallecula biopsy on 11/25/2024 along with bronchoscopy and biopsy of the right pe rihilar lung lesion on 11/27/2024 were positive for p16 squamous cell carcinoma. Given his weakness and weight loss, I do not believe he will be able to tolerate chemotherapy. Planned on proceeding with Keytruda once every 3 weeks, he has not yet started IO. Patient presented to the emergency room for worsening shortness of breath. He reports over the last couple days he been having progressive shortness of breath. Also reports weight loss, approximate 12 to 15 pounds over the last month. On admit D-dimer was noted to be elevated 0.90. CTA chest was negative for pulmonary embolism. Scattered patchy airspace opacities noted most pronounced on the right concerning for pneumonia. Left lower lobe pulmonary nodule spiculated borders with a single focus of cavitation. Patient has been s tarted on Zosyn. PCR viral panel negative. Lactic acid elevated at 3.0. WBC 12.4, hemoglobin 11.0, weightless 342,000. Creatinine 0.60, GFR greater than 90. Patient states he has been tolerating his PEG tube feedings, 4-5 times daily. Denies nausea vomiting. Review of Systems 10 point ROS is negative except as stated in the HPI Past Medical History Past Medical History: Cancer, Diabetes Mellitus, Deep Vein Thrombosis (DVT), Hyperlipidemia, Hypertension, Myocardial Infarction (IA), Pulmonary Embolus (PE) Additional Past Medical History / Comment(s): hx pancreatitis, kidney stones, DVT & PE in 2021, Oropharyngeal cancer- radiation & chemo, htn & hyperlipidemia resolved after weight loss per pt, SOB & occasional dizzyness with activity, uses cane prn Last Myocardial Infarction Date:: 2018 History of Any Multi-Drug Resistant Organisms: None Reported Past Surgical History: Cholecystectomy, Heart Catheterization With Stent, Joint Replacement, Orthopedic Surgery Additional Past Surgical History / Comment(s): RIGHT KNEE REPLACED x3, LEFT ROTATOR CUFF, peg tube Past Anesthesia/Blood Transfusion Reactions: No Reported Reaction Date of Last Stent Placement:: 2018 Past Psychological History: ADD/ADHD, Depression Additional Psychological History / Comment(s): ADHD. Smoking Status: Former smoker Past Alcohol Use History: Abuse, Heavy Additional Past Alcohol Use History / Comment(s): Pt started smoking in 1975, used to smoke one ppd, currently smoking <1/2ppd. hx drinking liqour, 2-3 drinks per day. no alcohol intake since Apr 2024. Past Drug Use History: Marijuana Additional Drug Use History / Comment(s): once a month-advised none 24 hrs prior to proc. - Past Family History Father Family Medical History: Diabetes Mellitus Additional Family Medical History / Comment(s): CABG Mother Family Medical History: Diabetes Mellitus Additional Family Medical History / Comment(s): Mother is living. Medications and Allergies Home Medications Medication Instructions Recorded Confirmed Type Insulin Glargine,Hum.rec.anlog 18 units SQ HS 11/25/24 01/04/25 History [Lantus Solostar Pen] Albuterol Nebulized [Ventolin 2.5 mg INHALATION RT-TID 01/04/25 01/04/25 History Nebulized] Allergies Allergy/AdvReac Type Severity Reaction Status Date / Time insulin detemir Allergy Anaphylaxis Verified 01/04/25 14:36 [From Levemir] Physical Exam Vitals: Vital Signs Temp Pulse Pulse Resp BP BP Pulse Ox 01/05/25 15:43 90 01/05/25 15:33 90 01/05/25 12:17 97.6 F 89 20 103/67 100 01/05/25 11:57 96 01/05/25 11:49 92 01/05/25 07:50 97.4 F L 109 H 20 104/77 94 L 01/05/25 07:00 90 20 145/85 99 01/05/25 06:43 90 01/05/25 06:33 86 01/05/25 06:00 89 16 133/100 98 01/05/25 05:24 83 16 139/91 99 01/05/25 04:00 80 18 138/93 100 01/05/25 01:00 79 18 117/79 95 01/04/25 23:00 86 18 134/90 99 01/04/25 20:00 89 20 107/77 97 01/04/25 18:53 89 20 119/82 97 Intake and Output 01/05/25 01/05/25 01/05/25 06:59 14:59 22:59 Intake Total 500 Balance 500 Intake: Tube Feeding 300 Other 200 Other: Voiding Method Urinal Weight 63.503 kg 63.503 kg - Constitutional General appearance: no acute distress, thin - EENT Eyes: anicteric sclerae, EOMI ENT: hearing grossly normal - Respiratory Respiratory: bilateral: diminished - Cardiovascular Rhythm: regular - Gastrointestinal General gastrointestinal: soft, no tenderness - Integumentary Integumentary: no cyanotic, no jaundiced - Musculoskeletal Musculoskeletal: generalized weakness - Psychiatric Psychiatric: A&O x's 3 Results CBC & Chem 7: 01/04/25 13:47 01/04/25 13:47 Labs: Abnormal Lab Results - Last 24 Hours (Table) 01/04/25 01/04/25 01/05/25 Range/Units 18:50 21:37 17:01 POC Glucose (mg/dL) 267 H 248 H 330 H (70-110) mg/dL Chest x-ray: report reviewed CT scan - chest: report reviewed Assessment and Plan (1) Acute exacerbation of chronic obstructive pulmonary disease Current Visit: Yes Status: Acute Code(s): J44.1 - CHRONIC OBSTRUCTIVE PULMONARY DISEASE W (ACUTE) EXACERBATION SNOMED Code(s): 303330448 (2) Head and neck cancer Current Visit: Yes Status: Acute Code(s): C76.0 - MALIGNANT NEOPLASM OF HEAD, FACE AND NECK SNOMED Code(s): 095671494 Plan: COPD exacerbation, suspected pneumonia: Patient presented to the emergency room for worsening shortness of breath over the last couple days. -On admit D-dimer was noted to be elevated 0.90. CTA chest was negative for pulmonary embolism. Scattered patchy airspace opacities noted most pronounced on the right concerning for pneumonia. Left lower lobe pulmonary nodule spiculated borders with a single focus of cavitation. -Patient has been started on Zosyn. PCR viral panel negative. Lactic acid elevated at 3.0. Blood culture and sputum culture pending -Pulmonology following Dysphagia, weight loss: -Reporting 12-15 lb weight loss -Continue tube feedings -Retort Pre Cooker consulted SCC of oropharynx: -Oncology history as dictated in the HPI -Cycle 1 of concurrent chemoradiotherapy with weekly cisplatin 40 mg/m was initiated on 06/18/2024 and completed cycle 6 on 07/24/2024. Radiation therapy was completed on 08/05/2024. -Repeat PET/CT on 11/07/2024 noted mild residual FDG uptake along the hyoid bone with no FDG avid cervical lymphadenopathy, but did note new 1.2 cm right pe rihilar nodule that was FDG avid. Nasopharyngoscopy with vallecula biopsy on 11/25/2024 along with bronchoscopy and biopsy of the right perihilar lung lesion on 11/27/2024 were positive for p16 squamous cell carcinoma. -Plan on proceeding with Keytruda once every 3 weeks, he has not yet started IO -Clinic f/u upon discharge . Doctor attests: I performed a history and physical examination of this patient, developed impression and plan of care. Discussed with dictator. I agree with dictators note, documented as a scribe.
[2025-01-05 21:15] LABS: Glucose,Whole Blood 445 mg/dL (70-110)
[2025-01-05] MEDS: HEPARIN SODIUM,PORCINE 5,000 UNIT/ML 1 ML VIAL SQ SCH (21:54)
[2025-01-05] MEDS: FAMOTIDINE 20 MG/2 ML VIAL IV SCH (21:55)
[2025-01-06 07:29] LABS: Glucose,Whole Blood 219 mg/dL (70-110)
[2025-01-06 08:13] LABS: Blood Urea Nitrogen 33.3 mg/dL (9.0-27.0); Calcium 9.1 mg/dL (8.7-10.3); Carbon Dioxide 29.2 mmol/L (21.6-31.8); Chloride 97 mmol/L (96-109); Glucose 246 mg/dL (70-110); Potassium 4.4 mmol/L (3.5-5.5); Sodium 138 mmol/L (135-145)
[2025-01-06 08:15] LABS: Basophils # (A) 0.01 X 10*3/uL (0.00-0.10); Basophils % (A) 0.1 %; Eosinophils # (A) 0 X 10*3/uL (0.04-0.35); Eosinophils % (A) 0 %; HCT 29.6 % (39.6-50.0); HGB 9.3 g/dL (13.0-17.0); Lymphocytes # (A) 0.22 X 10*3/uL (0.90-5.00); Lymphocytes % (A) 1.7 %; MCHC 31.4 g/dL (32.0-37.0); MCV 98.7 FL (80.0-97.0); Mean Platelet Volume 10.2 FL (9.5-12.2); Monocytes # (A) 0.33 X 10*3/uL (0.20-1.00); Monocytes % (A) 2.6 %; NRBC Per 100 WBC 0 X 10*3/uL (0.00-0.01); Neutrophils # (A) 12.16 X 10*3/uL (1.80-7.70); Neutrophils % (A) 95.1 %; Platelet Count 281 X 10*3/uL (140-440); RDW 13.7 % (11.5-14.5); WBC 12.79 X 10*3/uL (4.50-10.00)
--- NOTE | 2025-01-06 11:36 | P.PN ---
Subjective Progress Note Date: 01/06/25 This is a 64-year-old male patient with a known history of diabetes mellitus type 2, hypertension, hyperlipidemia, previous alcoholism, PE/DVT maintained on Eliquis, chronic and ongoing tobacco dependence. 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 He did receive a PEG tube as well. PET scan from November 08, 2024 revealed mixed response to therapy with improvement in ulcerated tongue base activity and bilateral lymph nodes however there is development of a right perihilar nodule consistent with metastasis. On November 27, 2024 he did undergo bronchoscopy with biopsies that were positive for squamous cell carcinoma, consistent with probable metastasis from head and neck primary. He presented here to the emergency room yesterday with complaints of increasing shortness of breath, cough and congestion. Chest x-ray revealed no acute cardiopulmonary process. CT angiogram revealed no evidence of pulmonary embolism. There is scattered patchy airspace opacities most pronounced on the right concerning for pneumonia. Left lower lobe pulmonary nodule with spiculated borders with a single focus of cavitation possibly secondary to metastasis. White count 12.4. Hemoglobin 11.0. Platelets 342. D-dimer 0.90. Sodium 137. Potassium 4.8. Bicarb 29. BUN 26. Creatinine 0.60. Glucose 221. Viral screen negative for influenza A/B, COVID, RSV. He is seen today in consultation on the regular medical floor. He is currently resting in bed. Awake and alert in no acute distress. Maintaining O2 saturations in the 90s on 3 L/min per nasal cannula. He is afebrile. Hemodynamically stable. The patient is seen today January 06, 2025 in follow-up on the regular medical floor. He is currently sitting up at the bedside. Awake and alert in no acute distress. He remains short of breath with minimal activity. Continues with a loose productive cough. Blood and sputum cultures pending. White count 12.7. Hemoglobin 9.3. Platelets 281. Sodium 138. Potassium 4.4. Bicarb 29. BUN 33. Creatinine 0.6. Glucose 246. Procalcitonin negative at 0.20. He remains on Zosyn. Continued on DuoNeb and elations. Heparin for DVT prophylaxis. Remains on IV Solu-Medrol. Receiving TwoCal HN boluses 3 times daily for nutritional support. Objective - Vital Signs Vital signs: Vital Signs Temp 98.2 F 01/06/25 07:28 Pulse 84 01/06/25 08:20 Resp 16 01/06/25 07:28 BP 101/64 01/06/25 07:28 Pulse Ox 100 01/06/25 08:09 FiO2 Intake & Output 01/05/25 01/06/25 01/06/25 18:59 06:59 18:59 Intake Total 500 990 Output Total 400 Balance 500 590 Weight 63.503 kg Intake: Oral 590 Tube Feeding 300 Other 200 400 Output: Urine 400 Other: Voiding Method Urinal Urinal - Exam GENERAL EXAM: Alert, frail, 64-year-old male, on 3 L nasal cannula, fairly comfortable in no apparent distress. HEAD: Normocephalic. EYES: Normal reaction of pupils, equal size. NOSE: Clear with pink turbinates. THROAT: No erythema or exudates. NECK: No masses, no JVD. CHEST: No chest wall deformity. LUNGS: Equal air entry with bilateral scattered rhonchi right greater than left. CVS: S1 and S2 normal with no audible murmur, regular rhythm. ABDOMEN: PEG tube exit site clean and dry. No hepatosplenomegaly, normal bowel sounds, no guarding or rigidity. SPINE: No scoliosis or deformity SKIN: No rashes CENTRAL NERVOUS SYSTEM: No focal deficits, tone is normal in all 4 extremities. EXTREMITIES: There is no peripheral edema. No clubbing, no cyanosis. Peripheral pulses are intact. - Labs CBC & Chem 7: 01/06/25 05:39 01/06/25 05:39 Labs: Abnormal Lab Results - Last 24 Hours (Table) 01/05/25 01/05/25 01/06/25 Range/Units 17:01 21:14 05:39 WBC (4.50-10.00) X 10*3/uL RBC (4.40-5.60) X 10*6/uL Hgb (13.0-17.0) g/dL Hct (39.6-50.0) % MCV (80.0-97.0) FL MCHC (32.0-37.0) g/dL Immature Gran # (0.00-0.04) X 10*3/uL Neutrophils # (1.80-7.70) X 10*3/uL Lymphocytes # (0.90-5.00) X 10*3/uL Eosinophils # (0.04-0.35) X 10*3/uL BUN (9.0-27.0) mg/dL BUN/Creatinine Ratio (12.00-20.00) Ratio Glucose (70-110) mg/dL POC Glucose (mg/dL) 330 H 445 H (70-110) mg/dL Hemoglobin A1c 9.2 H (<=6.0) % 01/06/25 01/06/25 01/06/25 Range/Units 05:39 05:39 07:27 WBC 12.79 H (4.50-10.00) X 10*3/uL RBC 3.00 L (4.40-5.60) X 10*6/uL Hgb 9.3 L (13.0-17.0) g/dL Hct 29.6 L (39.6-50.0) % MCV 98.7 H (80.0-97.0) FL MCHC 31.4 L (32.0-37.0) g/dL Immature Gran # 0.07 H (0.00-0.04) X 10*3/uL Neutrophils # 12.16 H (1.80-7.70) X 10*3/uL Lymphocytes # 0.22 L (0.90-5.00) X 10*3/uL Eosinophils # 0 L (0.04-0.35) X 10*3/uL BUN 33.3 H (9.0-27.0) mg/dL BUN/Creatinine Ratio 55.50 H (12.00-20.00) Ratio Glucose 246 H (70-110) mg/dL POC Glucose (mg/dL) 219 H (70-110) mg/dL Hemoglobin A1c (<=6.0) % Microbiology - Last 24 Hours (Table) 01/05/25 13:00 Gram Stain - Preliminary Sputum Sputum Culture - Preliminary 01/04/25 15:35 Blood Culture - Preliminary Blood Assessment and Plan Assessment: Acute hypoxic respiratory failure secondary to an acute pneumonia. Possible aspiration versus postobstructive versus community-acquired. Pulmonary embolism ruled out. Viral screen negative for influenza A/B, RSV, COVID Stage IV squamous cell carcinoma of the tongue initially diagnosed in July 2024. Status post chemo/radiation. PET scan from November 07, 2024 revealed mixed response to therapy with improvement in ulcerated tongue base FDG activity and bilateral lymph nodes however there was development of a right perihilar FDG avid pulmonary nodule. Bronchoscopy with biopsy November 27, 2024 of the lung lesion also positive for squamous cell carcinoma Chronic dysphagia post radiation therapy, has a PEG tube in place Chronic and ongoing tobacco dependence Diabetes mellitus, type II Hypertension Hyperlipidemia Previous history of alcoholism History of marijuana use History of PE/DVT, anticoagulated with Eliquis Plan: The patient was seen and evaluated Labs and medications reviewed Continued on Zosyn Heparin for DVT prophylaxis Continue DuoNeb inhalations Continue IV Solu-Medrol Titrate the FiO2 as tolerated Educated regarding smoking cessation We will continue to follow I have personally seen and examined the patient, performed the documentation and the assessment and plan as written. Number of minutes spent on the visit: 10 Dictation was produced using [employer] dictation software. Please excuse any grammatical, word or spelling errors.
[2025-01-06 12:15] LABS: Glucose,Whole Blood 359 mg/dL (70-110)
--- NOTE | 2025-01-06 16:17 | P.PN ---
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 Because of this he has dysarthria and dysphagia. He is s/p PEG tube placement He is diabetic on Lantus. Presents because of shortness of breath. Patient also with some cough and what phlegm. No significant chest pain Complains from constipation. No urinary complaints. No headache or dizziness He is barely able to walk currently. At home he walks mainly across the house He is afebrile hemodynamically stable he is 90s percent saturation on 3 L oxygen via nasal cannula Labs showed leukocytosis 12.9 hemoglobin 11. Glucose more than 200 rest of labs reviewed look stable. Influenza and COVID were negative D-dimer was elevated 0.9 CTA of the chest was negative for PE but showing scattered patchy airspace opacity concerning for pneumonia. Also also he has left lower lobe pulmonary nodule with spiculated margins and central cavity which could be related to his history of cancer EKG showing sinus tachycardia at [address]-T changes 01/06 Patient sitting up at bed Still have some dyspnea while at rest still feels generally weak. Pulse oximetry showing increased saturation to 95% while he is on 3 L oxygen via nasal cannula. As at home he was not on oxygen He looks tired WBC is elevated 12.7, hemoglobin dropped 11 down to 9.3 Glucose is better but still more than 200 He remains on Zosyn for obstructive pneumonia and he might need bronchoscopy if no improvement in 1 to 2 days per pulmonary's team Active Medications Generic Name Dose Route Start Last Admin Trade Name Freq PRN Reason Stop Dose Admin Albuterol/Ipratropium 3 ml 01/04/25 15:04 Ipratropium-Albuterol 3 Ml Neb INHALATION RT-Q2H PRN Shortness Of Breath Or Wheezing Albuterol/Ipratropium 3 ml 01/04/25 18:00 01/06/25 15:36 Ipratropium-Albuterol 3 Ml Neb INHALATION 3 ml RT-QID AUTUMN Administration Dextrose/Water 25 ml 01/05/25 14:32 Dextrose 50% Syringe 50 Ml IVP PER PROTOCOL PRN Hypoglycemia Protocol Dextrose/Water 50 ml 01/05/25 14:32 Dextrose 50% Syringe 50 Ml IVP PER PROTOCOL PRN Hypoglycemia Protocol Famotidine 20 mg 01/05/25 21:00 01/06/25 09:17 Famotidine 20 Mg/2 Ml Vial IV 20 mg Q12HR AUTUMN Administration Heparin Sodium (Porcine) 5,000 unit 01/05/25 21:00 01/06/25 09:17 Heparin Sodium,Porcine 5,000 Unit/Ml 1 Ml Vial SQ 5,000 unit Q12HR AUTUMN Administration Piperacillin Sod/Tazobactam 100 mls @ 25 mls/hr 01/05/25 09:15 01/06/25 09:18 Sod 3.375 gm/ Sodium Chloride IVPB 25 mls/hr Q8HR AUTUMN Administration Protocol Insulin Glargine 18 unit 01/04/25 21:00 01/05/25 21:55 Insulin Glargine (Lantus) 100 Unit/Ml Syr SQ 18 unit HS AUTUMN Administration Insulin Human Lispro 0 unit 01/05/25 17:30 01/06/25 13:50 Insulin Lispro (Humalog) 100 Unit/Ml 10 Ml Vl SQ 5 unit ACHS AUTUMN Administration Protocol Methylprednisolone Sodium Succinate 60 mg 01/04/25 22:00 01/06/25 13:49 Methylprednisolone Sod Succi 125 Mg/2 Ml Vial IV 60 mg Q6H AUTUMN Administration Naloxone HCl 0.2 mg 01/04/25 15:04 Naloxone 0.4 Mg/Ml 1 Ml Vial IVP Q2M PRN Opioid Reversal Objective - Vital Signs Vital signs: Vital Signs Temp 98.2 F 01/06/25 07:28 Pulse 84 01/06/25 08:20 Resp 16 01/06/25 07:28 BP 101/64 01/06/25 07:28 Pulse Ox 100 01/06/25 08:09 FiO2 Intake & Output 01/05/25 01/06/25 01/06/25 18:59 06:59 18:59 Intake Total 500 990 Output Total 400 Balance 500 590 Weight 63.503 kg Intake: Oral 590 Tube Feeding 300 Other 200 400 Output: Urine 400 Other: Voiding Method Urinal Urinal - Exam GENERAL: The patient is alert and oriented x3, not in any acute distress. Well developed, well nourished. -HEENT: Pupils are round and equally reacting to light. EOMI. No scleral icterus. No conjunctival pallor. Normocephalic, atraumatic. No pharyngeal erythema. No thyromegaly. Dysarthric speech CARDIOVASCULAR: S1 and S2 present. No murmurs, rubs, or gallops. -PULMONARY: Chest is clear to auscultation, no wheezing , bilateral crepitation with tachypnea rackles. ABDOMEN: Soft, nontender, nondistended, normoactive bowel sounds. No palpable organomegaly. MUSCULOSKELETAL: No joint swelling or deformity. EXTREMITIES: No cyanosis, clubbing, or pedal edema. NEUROLOGICAL: Gross neurological examination did not reveal any focal deficits. SKIN: No rashes. no petechiae. - Labs CBC & Chem 7: 01/06/25 05:39 01/06/25 05:39 Labs: Abnormal Lab Results - Last 24 Hours (Table) 01/05/25 01/05/25 01/06/25 Range/Units 17:01 21:14 05:39 WBC (4.50-10.00) X 10*3/uL RBC (4.40-5.60) X 10*6/uL Hgb (13.0-17.0) g/dL Hct (39.6-50.0) % MCV (80.0-97.0) FL MCHC (32.0-37.0) g/dL Immature Gran # (0.00-0.04) X 10*3/uL Neutrophils # (1.80-7.70) X 10*3/uL Lymphocytes # (0.90-5.00) X 10*3/uL Eosinophils # (0.04-0.35) X 10*3/uL BUN (9.0-27.0) mg/dL BUN/Creatinine Ratio (12.00-20.00) Ratio Glucose (70-110) mg/dL POC Glucose (mg/dL) 330 H 445 H (70-110) mg/dL Hemoglobin A1c 9.2 H (<=6.0) % 01/06/25 01/06/25 01/06/25 Range/Units 05:39 05:39 07:27 WBC 12.79 H (4.50-10.00) X 10*3/uL RBC 3.00 L (4.40-5.60) X 10*6/uL Hgb 9.3 L (13.0-17.0) g/dL Hct 29.6 L (39.6-50.0) % MCV 98.7 H (80.0-97.0) FL MCHC 31.4 L (32.0-37.0) g/dL Immature Gran # 0.07 H (0.00-0.04) X 10*3/uL Neutrophils # 12.16 H (1.80-7.70) X 10*3/uL Lymphocytes # 0.22 L (0.90-5.00) X 10*3/uL Eosinophils # 0 L (0.04-0.35) X 10*3/uL BUN 33.3 H (9.0-27.0) mg/dL BUN/Creatinine Ratio 55.50 H (12.00-20.00) Ratio Glucose 246 H (70-110) mg/dL POC Glucose (mg/dL) 219 H (70-110) mg/dL Hemoglobin A1c (<=6.0) % Microbiology - Last 24 Hours (Table) 01/04/25 15:35 Blood Culture - Preliminary Blood 01/05/25 13:00 Gram Stain - Preliminary Sputum Assessment and Plan Assessment: Acute COPD exacerbation Postobstructive pneumonia Acute on chronic anemia Malignant neoplasm of the oropharynx with laryngeal mass, squamous cell carcinoma of the tongue Dysarthria regarding his mouth tumor Dysphagia status post PEG tube Diabetes mellitus type 2 on Lantus Plan: Continue Zithromax continue Zosyn Continue with IV Solu-Medrol Continue with bronchodilator Pulmonary team consult Close do anemia workup, monitor hemoglobin and other Protonix Continue with oxygen therapy Labs and medication were reviewed.. Continue same treatment. Continue with symptomatic treatment. Resume home medication. Monitor labs and vitals. DVT and GI prophylaxis. Further recommendations as per clinical course of the patient DVT prophylaxis: Subcutaneous heparin GI Prophylaxis: Protonix PT/OT: Pending Prognosis is guarded
[2025-01-06 17:03] LABS: Glucose,Whole Blood 310 mg/dL (70-110)
[2025-01-06 20:58] LABS: Glucose,Whole Blood 333 mg/dL (70-110)
[2025-01-07] MEDS: MELATONIN 5 MG TABLET PO PRN (00:40)
[2025-01-07 07:11] LABS: Glucose,Whole Blood 262 mg/dL (70-110)
[2025-01-07 08:20] LABS: Basophils # (A) 0.01 X 10*3/uL (0.00-0.10); Basophils % (A) 0.1 %; Eosinophils # (A) 0 X 10*3/uL (0.04-0.35); Eosinophils % (A) 0 %; HCT 28.4 % (39.6-50.0); HGB 8.9 g/dL (13.0-17.0); Lymphocytes # (A) 0.19 X 10*3/uL (0.90-5.00); Lymphocytes % (A) 1.5 %; MCH 31.1 pg (27.0-32.0); MCHC 31.3 g/dL (32.0-37.0); MCV 99.3 FL (80.0-97.0); Mean Platelet Volume 10.3 FL (9.5-12.2); Monocytes # (A) 0.19 X 10*3/uL (0.20-1.00); Monocytes % (A) 1.5 %; NRBC Per 100 WBC 0 X 10*3/uL (0.00-0.01); Neutrophils # (A) 11.88 X 10*3/uL (1.80-7.70); Neutrophils % (A) 96.5 %; Platelet Count 265 X 10*3/uL (140-440); RBC 2.86 X 10*6/uL (4.40-5.60); RDW 13.7 % (11.5-14.5); WBC 12.32 X 10*3/uL (4.50-10.00)
[2025-01-07 09:12] LABS: % Iron Saturation 22.63 (15.00-50.00); Carbon Dioxide 27.5 mmol/L (21.6-31.8); Chloride 96 mmol/L (96-109); Glucose 230 mg/dL (70-110); Iron 43 UG/DL (65-175); Potassium 4.6 mmol/L (3.5-5.5); Sodium 135 mmol/L (135-145); Total Iron Binding Capacity 190 UG/DL (228-460)
--- NOTE | 2025-01-07 11:38 | P.PN ---
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 He did receive a PEG tube as well. PET scan from November 08, 2024 revealed mixed response to therapy with improvement in ulcerated tongue base activity and bilateral lymph nodes however there is development of a right perihilar nodule consistent with metastasis. On November 27, 2024 he did undergo bronchoscopy with biopsies that were positive for squamous cell carcinoma, consistent with probable metastasis from head and neck primary. He presented here to the emergency room yesterday with complaints of increasing shortness of breath, cough and congestion. Chest x-ray revealed no acute cardiopulmonary process. CT angiogram revealed no evidence of pulmonary embolism. There is scattered patchy airspace opacities most pronounced on the right concerning for pneumonia. Left lower lobe pulmonary nodule with spiculated borders with a single focus of cavitation possibly secondary to metastasis. White count 12.4. Hemoglobin 11.0. Platelets 342. D-dimer 0.90. Sodium 137. Potassium 4.8. Bicarb 29. BUN 26. Creatinine 0.60. Glucose 221. Viral screen negative for influenza A/B, COVID, RSV. He is seen today in consultation on the regular medical floor. He is currently resting in bed. Awake and alert in no acute distress. Maintaining O2 saturations in the 90s on 3 L/min per nasal cannula. He is afebrile. Hemodynamically stable. The patient is seen today January 06, 2025 in follow-up on the regular medical floor. He is currently sitting up at the bedside. Awake and alert in no acute distress. He remains short of breath with minimal activity. Continues with a loose productive cough. Blood and sputum cultures pending. White count 12.7. Hemoglobin 9.3. Platelets 281. Sodium 138. Potassium 4.4. Bicarb 29. BUN 33. Creatinine 0.6. Glucose 246. Procalcitonin negative at 0.20. He remains on Zosyn. Continued on DuoNeb and elations. Heparin for DVT prophylaxis. Remains on IV Solu-Medrol. Receiving TwoCal HN boluses 3 times daily for nutritional support. The patient is seen today January 07, 2025 in follow-up on the regular medical floor. He is resting in bed. Awake and alert in no acute distress. Denies any worsening shortness of breath, cough or congestion. He is maintaining good O2 saturations in the 90s on 3 L/min per nasal cannula. He has been afebrile. Hemodynamically stable. Sputum culture revealed no growth. Blood culture revealed no growth. White count 12.3. Hemoglobin 8.9. Platelets 265. Sodium 135. Potassium 4.6. Bicarb 27. BUN 31. Creatinine 0.5. Glucose 230. He remains on heparin for DVT prophylaxis. Continued on DuoNeb inhalations, Solu- Medrol. Remains on Zosyn. Objective - Vital Signs Vital signs: Vital Signs Temp 97.5 F L 01/07/25 07:28 Pulse 80 01/07/25 08:09 Resp 20 01/07/25 07:28 BP 103/67 01/07/25 07:28 Pulse Ox 96 01/07/25 07:28 FiO2 Intake & Output 01/06/25 01/07/25 01/07/25 18:59 06:59 18:59 Other: Voiding Method Urinal Urinal - Exam GENERAL EXAM: Alert, frail, 64-year-old male, sitting up in bed, on 3 L nasal cannula, comfortable in no apparent distress. HEAD: Normocephalic. EYES: Normal reaction of pupils, equal size. NOSE: Clear with pink turbinates. THROAT: No erythema or exudates. NECK: No masses, no JVD. CHEST: No chest wall deformity. LUNGS: Equal air entry with bilateral scattered rhonchi right greater than left. CVS: S1 and S2 normal with no audible murmur, regular rhythm. ABDOMEN: PEG tube exit site clean and dry. No hepatosplenomegaly, normal bowel sounds, no guarding or rigidity. SPINE: No scoliosis or deformity SKIN: No rashes CENTRAL NERVOUS SYSTEM: No focal deficits, tone is normal in all 4 extremities. EXTREMITIES: There is no peripheral edema. No clubbing, no cyanosis. Per ipheral pulses are intact. - Labs CBC & Chem 7: 01/07/25 04:20 01/07/25 04:20 Labs: Abnormal Lab Results - Last 24 Hours (Table) 01/06/25 01/06/25 01/06/25 Range/Units 12:14 17:02 20:56 WBC (4.50-10.00) X 10*3/uL RBC (4.40-5.60) X 10*6/uL Hgb (13.0-17.0) g/dL Hct (39.6-50.0) % MCV (80.0-97.0) FL MCHC (32.0-37.0) g/dL Immature Gran # (0.00-0.04) X 10*3/uL Neutrophils # (1.80-7.70) X 10*3/uL Lymphocytes # (0.90-5.00) X 10*3/uL Monocytes # (0.20-1.00) X 10*3/uL Eosinophils # (0.04-0.35) X 10*3/uL BUN (9.0-27.0) mg/dL Creatinine (0.6-1.5) mg/dL BUN/Creatinine Ratio (12.00-20.00) Ratio Glucose (70-110) mg/dL POC Glucose (mg/dL) 359 H 310 H 333 H (70-110) mg/dL Iron (65-175) UG/DL TIBC (228-460) UG/DL Transferrin (204.0-354.0) mg/dL Ferritin (22.0-322.0) ng/mL 01/07/25 01/07/25 01/07/25 Range/Units 04:20 04:20 07:09 WBC 12.32 H (4.50-10.00) X 10*3/uL RBC 2.86 L (4.40-5.60) X 10*6/uL Hgb 8.9 L (13.0-17.0) g/dL Hct 28.4 L (39.6-50.0) % MCV 99.3 H (80.0-97.0) FL MCHC 31.3 L (32.0-37.0) g/dL Immature Gran # 0.05 H (0.00-0.04) X 10*3/uL Neutrophils # 11.88 H (1.80-7.70) X 10*3/uL Lymphocytes # 0.19 L (0.90-5.00) X 10*3/uL Monocytes # 0.19 L (0.20-1.00) X 10*3/uL Eosinophils # 0 L (0.04-0.35) X 10*3/uL BUN 31.0 H (9.0-27.0) mg/dL Creatinine 0.5 L (0.6-1.5) mg/dL BUN/Creatinine Ratio 62.00 H (12.00-20.00) Ratio Glucose 230 H (70-110) mg/dL POC Glucose (mg/dL) 262 H (70-110) mg/dL Iron 43 L (65-175) UG/DL TIBC 190 L (228-460) UG/DL Transferrin 136.0 L (204.0-354.0) mg/dL Ferritin 1884.0 H (22.0-322.0) ng/mL Microbiology - Last 24 Hours (Table) 01/05/25 13:00 Gram Stain - Final Sputum Sputum Culture - Final 01/04/25 15:35 Blood Culture - Preliminary Blood Assessment and Plan Assessment: Acute hypoxic respiratory failure secondary to an acute pneumonia. Possible aspiration versus post obstructive versus community-acquired. Pulmonary embolism ruled out. Viral screen negative for influenza A/B, RSV, COVID. Sputum culture reveals no growth. Procalcitonin was negative Stage IV squamous cell carcinoma of the tongue initially diagnosed in July 2024. Status post chemo/radiation. PET scan from November 07, 2024 revealed mixed response to therapy with improvement in ulcerated tongue base FDG activity and bilateral lymph nodes however there was development of a right perihilar FDG avid pulmonary nodule. Bronchoscopy with biopsy November 27, 2024 of the lung lesion also positive for squamous cell carcinoma Chronic dysphagia post radiation therapy, has a PEG tube in place Chronic and ongoing tobacco dependence Diabetes mellitus, type II Hypertension Hyperlipidemia Previous history of alcoholism History of marijuana use History of PE/DVT, anticoagulated with Eliquis Plan: The patient was seen and evaluated Labs and medications reviewed Sputum culture revealed no growth Blood culture revealed no growth Continued on Zosyn Heparin for DVT prophylaxis Continue DuoNeb inhalations Discontinue IV Solu-Medrol Initiate a prednisone taper Titrate down the FiO2 as tolerated Educated regarding smoking cessation Case management working on supplying tube feedings post discharge I have personally seen and examined the patient, performed the documentation and the assessment and plan as written. Number of minutes spent on the visit: 10 Dictation was produced using [employer] software. Please excuse any grammatical, word or spelling errors.
[2025-01-07 12:12] LABS: Glucose,Whole Blood 373 mg/dL (70-110)
--- NOTE | 2025-01-07 12:23 | P.PN ---
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 Because of this he has dysarthria and dysphagia. He is s/p PEG tube placement He is diabetic on Lantus. Presents because of shortness of breath. Patient also with some cough and what phlegm. No significant chest pain Complains from constipation. No urinary complaints. No headache or dizziness He is barely able to walk currently. At home he walks mainly across the house He is afebrile hemodynamically stable he is 90s percent saturation on 3 L oxygen via nasal cannula Labs showed leukocytosis 12.9 hemoglobin 11. Glucose more than 200 rest of labs reviewed look stable. Influenza and COVID were negative D-dimer was elevated 0.9 CTA of the chest was negative for PE but showing scattered patchy airspace opacity concerning for pneumonia. Also also he has left lower lobe pulmonary nodule with spiculated margins and central cavity which could be related to his history of cancer EKG showing sinus tachycardia at [address]-T changes 01/06 Patient sitting up at bed Still have some dyspnea while at rest still feels generally weak. Pulse oximetry showing increased saturation to 95% while he is on 3 L oxygen via nasal cannula. As at home he was not on oxygen He looks tired WBC is elevated 12.7, hemoglobin dropped 11 down to 9.3 Glucose is better but still more than 200 He remains on Zosyn for obstructive pneumonia and he might need bronchoscopy if no improvement in 1 to 2 days per pulmonary's team 01/07 Patient states that his dyspnea is improving slowly and gradually, he thinks is improved by 10 to 15% since he came into the hospital Still has bilateral crepitation with some coughing Patient would like to see Dr. Leigh Hemoglobin is slightly lower at 8.9 compared to 9.3 yesterday. Leukocytosis is persistent around 12 while he is on steroids Glucose is better controlled Continues on Zosyn but today switched his IV Solu-Medrol and to prednisone 40 mg. Objective - Vital Signs Vital signs: Vital Signs Temp 97.5 F L 01/07/25 07:28 Pulse 78 01/07/25 12:03 Resp 20 01/07/25 07:28 BP 103/67 01/07/25 07:28 Pulse Ox 96 01/07/25 07:28 FiO2 Intake & Output 01/06/25 01/07/25 01/07/25 18:59 06:59 18:59 Other: Voiding Method Urinal Urinal - Exam GENERAL: The patient is alert and oriented x3, not in any acute distress. Well developed, well nourished. -HEENT: Pupils are round and equally reacting to light. EOMI. No scleral icterus. No conjunctival pallor. Normocephalic, atraumatic. No pharyngeal erythema. No thyromegaly. Dysarthric speech CARDIOVASCULAR: S1 and S2 present. No murmurs, rubs, or gallops. -PULMONARY: Chest is clear to auscultation, no wheezing , bilateral crepitation with tachypnea rackles. ABDOMEN: Soft, nontender, nondistended, normoactive bowel sounds. No palpable or ganomegaly. MUSCULOSKELETAL: No joint swelling or deformity. EXTREMITIES: No cyanosis, clubbing, or pedal edema. NEUROLOGICAL: Gross neurological examination did not reveal any focal deficits. SKIN: No rashes. no petechiae. - Labs CBC & Chem 7: 01/07/25 04:20 01/07/25 04:20 Labs: Abnormal Lab Results - Last 24 Hours (Table) 01/06/25 01/06/25 01/06/25 Range/Units 12:14 17:02 20:56 WBC (4.50-10.00) X 10*3/uL RBC (4.40-5.60) X 10*6/uL Hgb (13.0-17.0) g/dL Hct (39.6-50.0) % MCV (80.0-97.0) FL MCHC (32.0-37.0) g/dL Immature Gran # (0.00-0.04) X 10*3/uL Neutrophils # (1.80-7.70) X 10*3/uL Lymphocytes # (0.90-5.00) X 10*3/uL Monocytes # (0.20-1.00) X 10*3/uL Eosinophils # (0.04-0.35) X 10*3/uL BUN (9.0-27.0) mg/dL Creatinine (0.6-1.5) mg/dL BUN/Creatinine Ratio (12.00-20.00) Ratio Glucose (70-110) mg/dL POC Glucose (mg/dL) 359 H 310 H 333 H (70-110) mg/dL Iron (65-175) UG/DL TIBC (228-460) UG/DL Transferrin (204.0-354.0) mg/dL Ferritin (22.0-322.0) ng/mL 01/07/25 01/07/25 01/07/25 Range/Units 04:20 04:20 07:09 WBC 12.32 H (4.50-10.00) X 10*3/uL RBC 2.86 L (4.40-5.60) X 10*6/uL Hgb 8.9 L (13.0-17.0) g/dL Hct 28.4 L (39.6-50.0) % MCV 99.3 H (80.0-97.0) FL MCHC 31.3 L (32.0-37.0) g/dL Immature Gran # 0.05 H (0.00-0.04) X 10*3/uL Neutrophils # 11.88 H (1.80-7.70) X 10*3/uL Lymphocytes # 0.19 L (0.90-5.00) X 10*3/uL Monocytes # 0.19 L (0.20-1.00) X 10*3/uL Eosinophils # 0 L (0.04-0.35) X 10*3/uL BUN 31.0 H (9.0-27.0) mg/dL Creatinine 0.5 L (0.6-1.5) mg/dL BUN/Creatinine Ratio 62.00 H (12.00-20.00) Ratio Glucose 230 H (70-110) mg/dL POC Glucose (mg/dL) 262 H (70-110) mg/dL Iron 43 L (65-175) UG/DL TIBC 190 L (228-460) UG/DL Transferrin 136.0 L (204.0-354.0) mg/dL Ferritin 1884.0 H (22.0-322.0) ng/mL 01/07/25 Range/Units 12:06 WBC (4.50-10.00) X 10*3/uL RBC (4.40-5.60) X 10*6/uL Hgb (13.0-17.0) g/dL Hct (39.6-50.0) % MCV (80.0-97.0) FL MCHC (32.0-37.0) g/dL Immature Gran # (0.00-0.04) X 10*3/uL Neutrophils # (1.80-7.70) X 10*3/uL Lymphocytes # (0.90-5.00) X 10*3/uL Monocytes # (0.20-1.00) X 10*3/uL Eosinophils # (0.04-0.35) X 10*3/uL BUN (9.0-27.0) mg/dL Creatinine (0.6-1.5) mg/dL BUN/Creatinine Ratio (12.00-20.00) Ratio Glucose (70-110) mg/dL POC Glucose (mg/dL) 373 H (70-110) mg/dL Iron (65-175) UG/DL TIBC (228-460) UG/DL Transferrin (204.0-354.0) mg/dL Ferritin (22.0-322.0) ng/mL Microbiology - Last 24 Hours (Table) 01/05/25 13:00 Gram Stain - Final Sputum Sputum Culture - Final 01/04/25 15:35 Blood Culture - Preliminary Blood Assessment and Plan Assessment: Acute COPD exacerbation Postobstructive pneumonia Acute on chronic anemia 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 Continue same treatment. Continue with symptomatic treatment. Resume home medication. Monitor labs and vitals. DVT and GI prophylaxis. Further recommendations as per clinical course of the patient DVT prophylaxis: Subcutaneous heparin GI Prophylaxis: Protonix PT/OT: Pending Prognosis is guarded
[2025-01-07] MEDS: FOLIC ACID 1 MG TAB PO SCH (13:10)
[2025-01-07] MEDS ORDERED: polyethylene glycoL 3350 17 GM POWD.PACK PO PRN (15:33)
[2025-01-07] MEDS: DOCUSATE ORAL SOLN 100 MG/10 ML CUP PO SCH (16:37)
[2025-01-07 17:15] LABS: Glucose,Whole Blood 354 mg/dL (70-110)
--- NOTE | 2025-01-07 18:11 | P.PN ---
Subjective Progress Note Date: 01/07/25 No acute events overnight. Pt reporting improvement in breathing. SPO2 96% on room air. Continues Zosyn Objective - Vital Signs Vital signs: Vital Signs Temp 97.8 F 01/07/25 12:24 Pulse 92 01/07/25 15:51 Resp 20 01/07/25 12:24 BP 109/65 01/07/25 12:24 Pulse Ox 94 L 01/07/25 12:24 FiO2 Intake & Output 01/06/25 01/07/25 01/07/25 18:59 06:59 18:59 Other: Voiding Method Urinal Urinal Urinal - Constitutional General appearance: Present: no acute distress, thin - EENT Eyes: Present: anicteric sclerae, EOMI ENT: Present: hearing grossly normal - Respiratory Details: breathing is even and unlabored - Cardiovascular Details: skin warm and dry - Integumentary Integumentary: Absent: cyanotic - Neurologic Neurologic: Present: CNII-XII intact - Psychiatric Psychiatric: Present: A&O x's 3 - Labs CBC & Chem 7: 01/07/25 04:20 01/07/25 04:20 Labs: Abnormal Lab Results - Last 24 Hours (Table) 01/06/25 01/07/25 01/07/25 Range/Units 20:56 04:20 04:20 WBC 12.32 H (4.50-10.00) X 10*3/uL RBC 2.86 L (4.40-5.60) X 10*6/uL Hgb 8.9 L (13.0-17.0) g/dL Hct 28.4 L (39.6-50.0) % MCV 99.3 H (80.0-97.0) FL MCHC 31.3 L (32.0-37.0) g/dL Immature Gran # 0.05 H (0.00-0.04) X 10*3/uL Neutrophils # 11.88 H (1.80-7.70) X 10*3/uL Lymphocytes # 0.19 L (0.90-5.00) X 10*3/uL Monocytes # 0.19 L (0.20-1.00) X 10*3/uL Eosinophils # 0 L (0.04-0.35) X 10*3/uL BUN 31.0 H (9.0-27.0) mg/dL Creatinine 0.5 L (0.6-1.5) mg/dL BUN/Creatinine Ratio 62.00 H (12.00-20.00) Ratio Glucose 230 H (70-110) mg/dL POC Glucose (mg/dL) 333 H (70-110) mg/dL Iron 43 L (65-175) UG/DL TIBC 190 L (228-460) UG/DL Transferrin 136.0 L (204.0-354.0) mg/dL Ferritin 1884.0 H (22.0-322.0) ng/mL 01/07/25 01/07/25 01/07/25 Range/Units 07:09 12:06 17:10 WBC (4.50-10.00) X 10*3/uL RBC (4.40-5.60) X 10*6/uL Hgb (13.0-17.0) g/dL Hct (39.6-50.0) % MCV (80.0-97.0) FL MCHC (32.0-37.0) g/dL Immature Gran # (0.00-0.04) X 10*3/uL Neutrophils # (1.80-7.70) X 10*3/uL Lymphocytes # (0.90-5.00) X 10*3/uL Monocytes # (0.20-1.00) X 10*3/uL Eosinophils # (0.04-0.35) X 10*3/uL BUN (9.0-27.0) mg/dL Creatinine (0.6-1.5) mg/dL BUN/Creatinine Ratio (12.00-20.00) Ratio Glucose (70-110) mg/dL POC Glucose (mg/dL) 262 H 373 H 354 H (70-110) mg/dL Iron (65-175) UG/DL TIBC (228-460) UG/DL Transferrin (204.0-354.0) mg/dL Ferritin (22.0-322.0) ng/mL Microbiology - Last 24 Hours (Table) 01/05/25 13:00 Gram Stain - Final Sputum Sputum Culture - Final 01/04/25 15:35 Blood Culture - Preliminary Blood Assessment and Plan (1) Acute exacerbation of chronic obstructive pulmonary disease Current Visit: Yes Status: Acute Code(s): J44.1 - CHRONIC OBSTRUCTIVE PULMONARY DISEASE W (ACUTE) EXACERBATION SNOMED Code(s): 794338920 (2) Head and neck cancer Current Visit: Yes Status: Acute Code(s): C76.0 - MALIGNANT NEOPLASM OF HEAD, FACE AND NECK SNOMED Code(s): 472763321 Plan: COPD exacerbation, suspected pneumonia: Patient presented to the emergency room for worsening shortness of breath over the last couple days. -On admit D-dimer was noted to be elevated 0.90. CTA chest was negative for pulmonary embolism. Scattered patchy airspace opacities noted most pronounced on the right concerning for pneumonia. Left lower lobe pulmonary nodule spiculated borders with a single focus of cavitation. -Continues on Zosyn. PCR viral panel negative. Lactic acid elevated at 3.0. Blood culture and sputum culture negative -Pulmonology following Dysphagia, weight loss: -Reporting 12-15 lb weight loss -Continue tube feedings -[employer] consulted [facility] of oropharynx: -Oncology history as dictated in the HPI -Cycle 1 of concurrent chemoradiotherapy with weekly cisplatin 40 mg/m was initiated on 06/18/2024 and completed cycle 6 on 07/24/2024. Radiation therapy was completed on 08/05/2024. -Repeat PET/CT on 11/07/2024 noted mild residual FDG uptake along the hyoid bone with no FDG avid cervical lymphadenopathy, but did note new 1.2 cm right perihil ar nodule that was FDG avid. Nasopharyngoscopy with vallecula biopsy on 11/25/2024 along with bronchoscopy and biopsy of the right perihilar lung lesion on 11/27/2024 were positive for p16 squamous cell carcinoma. -Plan on proceeding with Keytruda once every 3 weeks, he has not yet started IO -Clinic f/u upon discharge with plans to start to immunotherapy
[2025-01-07 20:37] LABS: Glucose,Whole Blood 254 mg/dL (70-110)
[2025-01-08 07:09] LABS: Glucose,Whole Blood 75 mg/dL (70-110)
[2025-01-08 07:09] LABS: Glucose,Whole Blood 66 mg/dL (70-110)
[2025-01-08 07:32] LABS: Glucose,Whole Blood 91 mg/dL (70-110)
[2025-01-08] MEDS: predniSONE 20 MG TAB PO SCH (09:29)
--- NOTE | 2025-01-08 12:02 | P.PN ---
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 He did receive a PEG tube as well. PET scan from November 08, 2024 revealed mixed response to therapy with improvement in ulcerated tongue base activity and bilateral lymph nodes however there is development of a right perihilar nodule consistent with metastasis. On November 27, 2024 he did undergo bronchoscopy with biopsies that were positive for squamous cell carcinoma, consistent with probable metastasis from head and neck primary. He presented here to the emergency room yesterday with complaints of increasing shortness of breath, cough and congestion. Chest x-ray revealed no acute cardiopulmonary process. CT angiogram revealed no evidence of pulmonary embolism. There is scattered patchy airspace opacities most pronounced on the right concerning for pneumonia. Left lower lobe pulmonary nodule with spiculated borders with a single focus of cavitation possibly secondary to metastasis. White count 12.4. Hemoglobin 11.0. Platelets 342. D-dimer 0.90. Sodium 137. Potassium 4.8. Bicarb 29. BUN 26. Creatinine 0.60. Glucose 221. Viral screen negative for influenza A/B, COVID, RSV. He is seen today in consultation on the regular medical floor. He is currently resting in bed. Awake and alert in no acute distress. Maintaining O2 saturations in the 90s on 3 L/min per nasal cannula. He is afebrile. Hemodynamically stable. The patient is seen today January 06, 2025 in follow-up on the regular medical floor. He is currently sitting up at the bedside. Awake and alert in no acute distress. He remains short of breath with minimal activity. Continues with a loose productive cough. Blood and sputum cultures pending. White count 12.7. Hemoglobin 9.3. Platelets 281. Sodium 138. Potassium 4.4. Bicarb 29. BUN 33. Creatinine 0.6. Glucose 246. Procalcitonin negative at 0.20. He remains on Zosyn. Continued on DuoNeb and elations. Heparin for DVT prophylaxis. Remains on IV Solu-Medrol. Receiving TwoCal HN boluses 3 times daily for nutritional support. The patient is seen today January 07, 2025 in follow-up on the regular medical floor. He is resting in bed. Awake and alert in no acute distress. Denies any worsening shortness of breath, cough or congestion. He is maintaining good O2 saturations in the 90s on 3 L/min per nasal cannula. He has been afebrile. Hemodynamically stable. Sputum culture revealed no growth. Blood culture revealed no growth. White count 12.3. Hemoglobin 8.9. Platelets 265. Sodium 135. Potassium 4.6. Bicarb 27. BUN 31. Creatinine 0.5. Glucose 230. He remains on heparin for DVT prophylaxis. Continued on DuoNeb inhalations, Solu- Medrol. Remains on Zosyn. The patient is seen today January 08, 2025 in follow-up on the regular medical floor. He is resting in bed. Awake and alert in no acute distress. He continues with a loose productive cough of greenish-brown sputum. Feeling a bit better but he has been slow to progress. He is maintaining good O2 saturations in the 90s on room air. Sputum culture revealed no growth. Blood culture revealed no growth. Blood glucose 91. He remains on DuoNeb and elations. Remains on Zosyn. Remains on prednisone taper. Heparin for DVT prophylaxis. Objective - Vital Signs Vital signs: Vital Signs Temp 97.6 F 01/08/25 07:43 Pulse 77 01/08/25 08:45 Resp 12 01/08/25 07:43 BP 112/67 01/08/25 07:43 Pulse Ox 98 01/08/25 08:36 FiO2 Intake & Output 01/07/25 01/08/25 01/08/25 18:59 06:59 18:59 Intake Total 774 Output Total 600 Balance 174 Weight 60.917 kg Intake: Intake, IV Titration 100 Amount Piperacillin-Tazobactam 3 100 .375 gm In Sodium Chloride 0.9% 100 ml @ 25 mls/hr IVPB Q8HR [facility] Rx# :[id number] Tube Feeding 474 Other 200 Output: Urine 600 Other: Voiding Method Urinal Urinal # Bowel Movements 1 - Exam GENERAL EXAM: Alert, frail, 64-year-old male, resting in bed, on room air oxygen, comfortable in no apparent distress. HEAD: Normocephalic. EYES: Normal reaction of pupils, equal size. NOSE: Clear with pink turbinates. THROAT: No erythema or exudates. NECK: No masses, no JVD. CHEST: No chest wall deformity. LUNGS: Equal air entry with bilateral scattered rhonchi right greater than left. CVS: S1 and S2 normal with no audible murmur, regular rhythm. ABDOMEN: PEG tube exit site clean and dry. No hepatosplenomegaly, normal bowel sounds, no guarding or rigidity. SPINE: No scoliosis or deformity SKIN: No rashes CENTRAL NERVOUS SYSTEM: No focal deficits, tone is normal in all 4 extremities. EXTREMITIES: There is no peripheral edema. No clubbing, no cyanosis. Peripheral pulses are intact. - Labs CBC & Chem 7: 01/07/25 04:20 01/07/25 04:20 Labs: Abnormal Lab Results - Last 24 Hours (Table) 01/07/25 01/07/25 01/07/25 Range/Units 12:06 17:10 20:36 POC Glucose (mg/dL) 373 H 354 H 254 H (70-110) mg/dL 01/08/25 Range/Units 06:59 POC Glucose (mg/dL) 66 L (70-110) mg/dL Microbiology - Last 24 Hours (Table) 01/04/25 15:35 Blood Culture - Preliminary Blood 01/05/25 13:00 Gram Stain - Final Sputum Sputum Culture - Final Assessment and Plan Assessment: Acute hypoxic respiratory failure secondary to an acute pneumonia. Possible aspiration versus post obstructive versus community-acquired. Pulmonary embolism ruled out. Viral screen negative for influenza A/B, RSV, COVID. Sputum culture reveals no growth. Procalcitonin was negative Stage IV squamous cell carcinoma of the tongue initially diagnosed in July 2024. Status post chemo/radiation. PET scan from November 07, 2024 revealed mixed response to therapy with improvement in ulcerated tongue base FDG activity and bilateral lymph nodes however there was development of a right perihilar FDG avid pulmonary nodule. Bronchoscopy with biopsy November 27, 2024 of the lung lesion also positive for squamous cell carcinoma Chronic dysphagia post radiation therapy, has a PEG tube in place Chronic and ongoing tobacco dependence Diabetes mellitus, type II Hypertension Hyperlipidemia Previous history of alcoholism History of marijuana use History of PE/DVT, anticoagulated with Eliquis Plan: The patient was seen and evaluated Labs and medications reviewed Sputum culture revealed no growth Blood culture revealed no growth Continued on Zosyn Heparin for DVT prophylaxis Continue DuoNeb inhalations Continue a prednisone taper Currently on room air oxygen Educated regarding smoking cessation He has been slow to progress Will plan for bronchoscopy with BAL tomorrow Educated regarding the procedure and verbalizes understanding and is in agreement to proceed I have personally seen and examined the patient, performed the documentation and the assessment and plan as written. Number of minutes spent on the visit: 10 Dictation was produced using [employer] dictation software. Please excuse any grammatical, word or spelling errors.
[2025-01-08 12:08] LABS: Glucose,Whole Blood 136 mg/dL (70-110)
--- NOTE | 2025-01-08 16:29 | P.PN ---
Subjective Progress Note Date: 01/08/25 No acute events overnight. Pt reporting hes not feeling as well today. Having increased sputum production. Pulm planning bronch with BAL tomorrow. Objective - Vital Signs Vital signs: Vital Signs Temp 97.4 F L 01/08/25 13:22 Pulse 80 01/08/25 13:22 Resp 20 01/08/25 13:22 BP 116/69 01/08/25 13:22 Pulse Ox 95 01/08/25 13:22 FiO2 Intake & Output 01/07/25 01/08/25 01/08/25 18:59 06:59 18:59 Intake Total 774 Output Total 600 Balance 174 Weight 60.917 kg 60.917 kg Intake: Intake, IV Titration 100 Amount Piperacillin-Tazobactam 3 100 .375 gm In Sodium Chloride 0.9% 100 ml @ 25 mls/hr IVPB Q8HR [facility] Rx# :[id number] Tube Feeding 474 Other 200 Output: Urine 600 Other: Voiding Method Urinal Urinal Toilet # Voids 3 # Bowel Movements 1 2 - Constitutional General appearance: Present: no acute distress - EENT Eyes: Present: anicteric sclerae, EOMI ENT: Present: hearing grossly normal - Respiratory Details: breathing is even and unlabored - Cardiovascular Details: skin warm and dry - Integumentary Integumentary: Absent: cyanotic - Psychiatric Psychiatric: Present: A&O x's 3 - Labs CBC & Chem 7: 01/07/25 04:20 01/07/25 04:20 Labs: Abnormal Lab Results - Last 24 Hours (Table) 01/07/25 01/07/25 01/08/25 Range/Units 17:10 20:36 06:59 POC Glucose (mg/dL) 354 H 254 H 66 L (70-110) mg/dL 01/08/25 Range/Units 12:06 POC Glucose (mg/dL) 136 H (70-110) mg/dL Microbiology - Last 24 Hours (Table) 01/04/25 15:35 Blood Culture - Preliminary Blood Assessment and Plan (1) Acute exacerbation of chronic obstructive pulmonary disease Current Visit: Yes Status: Acute Code(s): J44.1 - CHRONIC OBSTRUCTIVE PULMONARY DISEASE W (ACUTE) EXACERBATION SNOMED Code(s): 504761989 (2) Head and neck cancer Current Visit: Yes Status: Acute Code(s): C76.0 - MALIGNANT NEOPLASM OF HEAD, FACE AND NECK SNOMED Code(s): 595770129 Plan: COPD exacerbation, suspected pneumonia: Patient presented to the emergency room for worsening shortness of breath over the last couple days. -On admit D-dimer was noted to be elevated 0.90. CTA chest was negative for pulmonary embolism. Scattered patchy airspace opacities noted most pronounced on the right concerning for pneumonia. Left lower lobe pulmonary nodule spic ulated borders with a single focus of cavitation. -Continues on Zosyn. PCR viral panel negative. Blood culture and sputum culture negative -Increasing sputum production. Plan for bronch with BAL tomorrow -Pulmonology following Dysphagia, weight loss: -Reporting 12-15 lb weight loss -Continue tube feedings -Psychology Professor consulted [facility] of oropharynx: -Oncology history as dictated in the HPI -Cycle 1 of concurrent chemoradiotherapy with weekly cisplatin 40 mg/m was initiated on 06/18/2024 and completed cycle 6 on 07/24/2024. Radiation therapy was completed on 08/05/2024. -Repeat PET/CT on 11/07/2024 noted mild residual FDG uptake along the hyoid bone with no FDG avid cervical lymphadenopathy, but did note new 1.2 cm right perihilar nodule that was FDG avid. Nasopharyngoscopy with vallecula biopsy on 11/25/2024 along with bronchoscopy and biopsy of the right perihilar lung lesion on 11/27/2024 were positive for p16 squamous cell carcinoma. -Plan on proceeding with Keytruda once every 3 weeks, he has not yet started IO -Clinic f/u upon discharge with plans to start to immunotherapy once acutely recovered
[2025-01-08 17:13] LABS: Glucose,Whole Blood 282 mg/dL (70-110)
[2025-01-08 20:21] LABS: Glucose,Whole Blood 244 mg/dL (70-110)
[2025-01-08] MEDS: CHOLESTYRAMINE (WITH SUGAR) 4 GM PACKET PO PRN (21:19)
--- NOTE | 2025-01-08 21:54 | P.PN ---
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 Because of this he has dysarthria and dysphagia. He is s/p PEG tube placement He is diabetic on Lantus. Presents because of shortness of breath. Patient also with some cough and what phlegm. No significant chest pain Complains from constipation. No urinary complaints. No headache or dizziness He is barely able to walk currently. At home he walks mainly across the house He is afebrile hemodynamically stable he is 90s percent saturation on 3 L oxygen via nasal cannula Labs showed leukocytosis 12.9 hemoglobin 11. Glucose more than 200 rest of labs reviewed look stable. Influenza and COVID were negative D-dimer was elevated 0.9 CTA of the chest was negative for PE but showing scattered patchy airspace opacity concerning for pneumonia. Also also he has left lower lobe pulmonary nodule with spiculated margins and central cavity which could be related to his history of cancer EKG showing sinus tachycardia at [address]-T changes 01/06 Patient sitting up at bed Still have some dyspnea while at rest still feels generally weak. Pulse oximetry showing increased saturation to 95% while he is on 3 L oxygen via nasal cannula. As at home he was not on oxygen He looks tired WBC is elevated 12.7, hemoglobin dropped 11 down to 9.3 Glucose is better but still more than 200 He remains on Zosyn for obstructive pneumonia and he might need bronchoscopy if no improvement in 1 to 2 days per pulmonary's team 01/07 Patient states that his dyspnea is improving slowly and gradually, he thinks is improved by 10 to 15% since he came into the hospital Still has bilateral crepitation with some coughing Patient would like to see Dr. Leigh Hemoglobin is slightly lower at 8.9 compared to 9.3 yesterday. Leukocytosis is persistent around 12 while he is on steroids Glucose is better controlled Continues on Zosyn but today switched his IV Solu-Medrol and to prednisone 40 mg. 01/08 Patient still feels short of breath, no much improvement Possible bronchoscopy tomorrow Continue with Zosyn and prednisone Objective - Vital Signs Vital signs: Vital Signs Temp 97.4 F L 01/08/25 13:22 Pulse 80 01/08/25 13:22 Resp 20 01/08/25 13:22 BP 116/69 01/08/25 13:22 Pulse Ox 95 01/08/25 13:22 FiO2 Intake & Output 01/07/25 01/08/25 01/08/25 18:59 06:59 18:59 Intake Total 774 Output Total 600 Balance 174 Weight 60.917 kg Intake: Intake, IV Titration 100 Amount Piperacillin-Tazobactam 3 100 .375 gm In Sodium Chloride 0.9% 100 ml @ 25 mls/hr IVPB Q8HR [facility] Rx# :[id number] Tube Feeding 474 Other 200 Output: Urine 600 Other: Voiding Method Urinal Urinal Toilet # Bowel Movements 1 - Exam GENERAL: The patient is alert and oriented x3, not in any acute distress. Well developed, well nourished. -HEENT: Pupils are round and equally reacting to light. EOMI. No scleral icterus. No conjunctival pallor. Normocephalic, atraumatic. No pharyngeal erythema. No thyromegaly. Dysarthric speech CARDIOVASCULAR: S1 and S2 present. No murmurs, rubs, or gallops. -PULMONARY: Chest is clear to auscultation, no wheezing , bilateral crepitation with tachypnea rackles. ABDOMEN: Soft, nontender, nondistended, normoactive bowel sounds. No palpable organomegaly. MUSCULOSKELETAL: No joint swelling or deformity. EXTREMITIES: No cyanosis, clubbing, or pedal edema. NEUROLOGICAL: Gross neurological examination did not reveal any focal deficits. SKIN: No rashes. no petechiae. 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 Continue same treatment. Continue with symptomatic treatment. Resume home medication. Monitor labs and vitals. DVT and GI prophylaxis. Further recommendations as per clinical course of the patient DVT prophylaxis: Subcutaneous heparin GI Prophylaxis: Protonix PT/OT: Pending Prognosis is guarded
[2025-01-09 07:11] LABS: Glucose,Whole Blood 134 mg/dL (70-110)
[2025-01-09] MEDS: IV FLUID CONTINUATION 1,000 ML IV ONE (11:58)
[2025-01-09] MEDS ORDERED: LIDOCAINE 1% INJ 10MG/ML (20 ML MDV) ONE (12:03)
[2025-01-09] MEDS ORDERED: PROPOFOL 10 MG/ML 20 ML VIAL IV ONE (12:03)
[2025-01-09] MEDS ORDERED: KETAMINE HCL IN 0.9 % NACL 50 MG/5 ML SYRINGE ONE (12:03)
[2025-01-09] MEDS: SODIUM CHLORIDE 0.9% 500 ML 500 ML IV ONE (12:15)
[2025-01-09] MEDS: LIDOCAINE 2% GLYDO JELLY 6 ML APPL MISCELLANE ONE (12:30)
--- NOTE | 2025-01-09 12:35 | P.PN ---
Subjective Progress Note Date: 01/09/25 This is a 64-year-old male patient with a known history of diabetes mellitus type 2, hypertension, hyperlipidemia, previous alcoholism, PE/DVT maintained on Eliquis, chronic and ongoing tobacco dependence. 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 He did receive a PEG tube as well. PET scan from November 08, 2024 revealed mixed response to therapy with improvement in ulcerated tongue base activity and bilateral lymph nodes however there is development of a right perihilar nodule consistent with metastasis. On November 27, 2024 he did undergo bronchoscopy with biopsies that were positive for squamous cell carcinoma, consistent with probable metastasis from head and neck primary. He presented here to the emergency room yesterday with complaints of increasing shortness of breath, cough and congestion. Chest x-ray revealed no acute cardiopulmonary process. CT angiogram revealed no evidence of pulmonary embolism. There is scattered patchy airspace opacities most pronounced on the right concerning for pneumonia. Left lower lobe pulmonary nodule with spiculated borders with a single focus of cavitation possibly secondary to metastasis. White count 12.4. Hemoglobin 11.0. Platelets 342. D-dimer 0.90. Sodium 137. Potassium 4.8. Bicarb 29. BUN 26. Creatinine 0.60. Glucose 221. Viral screen negative for influenza A/B, COVID, RSV. He is seen today in consultation on the regular medical floor. He is currently resting in bed. Awake and alert in no acute distress. Maintaining O2 saturations in the 90s on 3 L/min per nasal cannula. He is afebrile. Hemodynamically stable. The patient is seen today January 06, 2025 in follow-up on the regular medical floor. He is currently sitting up at the bedside. Awake and alert in no acute distress. He remains short of breath with minimal activity. Continues with a loose productive cough. Blood and sputum cultures pending. White count 12.7. Hemoglobin 9.3. Platelets 281. Sodium 138. Potassium 4.4. Bicarb 29. BUN 33. Creatinine 0.6. Glucose 246. Procalcitonin negative at 0.20. He remains on Zosyn. Continued on DuoNeb and elations. Heparin for DVT prophylaxis. Remains on IV Solu-Medrol. Receiving TwoCal HN boluses 3 times daily for nutritional support. The patient is seen today January 07, 2025 in follow-up on the regular medical floor. He is resting in bed. Awake and alert in no acute distress. Denies any worsening shortness of breath, cough or congestion. He is maintaining good O2 saturations in the 90s on 3 L/min per nasal cannula. He has been afebrile. Hemodynamically stable. Sputum culture revealed no growth. Blood culture revealed no growth. White count 12.3. Hemoglobin 8.9. Platelets 265. Sodium 135. Potassium 4.6. Bicarb 27. BUN 31. Creatinine 0.5. Glucose 230. He remains on heparin for DVT prophylaxis. Continued on DuoNeb inhalations, Solu- Medrol. Remains on Zosyn. The patient is seen today January 08, 2025 in follow-up on the regular medical floor. He is resting in bed. Awake and alert in no acute distress. He continues with a loose productive cough of greenish-brown sputum. Feeling a bit better but he has been slow to progress. He is maintaining good O2 saturations in the 90s on room air. Sputum culture revealed no growth. Blood culture revealed no growth. Blood glucose 91. He remains on DuoNeb and elations. Remains on Zosyn. Remains on prednisone taper. Heparin for DVT prophylaxis. The patient is seen today January 09, 2025 in follow-up on the regular medical floor. He is awake and alert in no acute distress. Resting comfortably in bed. Maintaining good O2 saturations in the 90s on still with a loose congested cough. Still with lots of phlegm production. Plan is for bronchoscopy today. He is continued on DuoNeb inhalations. Remains on Zosyn. Heparin for DVT prophylaxis. Remains on a prednisone taper. Stool for occult blood positive. Glucose 134. C. difficile screen negative. Objective - Vital Signs Vital signs: Vital Signs Temp 97.5 F L 01/09/25 07:44 Pulse 73 01/09/25 08:42 Resp 18 01/09/25 08:00 BP 119/69 01/09/25 07:44 Pulse Ox 98 01/09/25 08:29 FiO2 Intake & Output 01/08/25 01/09/25 01/09/25 18:59 06:59 18:59 Intake Total 300 Balance 300 Weight 60.917 kg 60.781 kg Intake: IV 300 Other: Voiding Method Toilet Urinal Bedside Commode Urinal # Voids 3 2 # Bowel Movements 2 4 - Exam GENERAL EXAM: Alert, frail, 64-year-old male, resting in bed, on 2 L/min per nasal cannula, in no apparent distress. HEAD: Normocephalic. EYES: Normal reaction of pupils, equal size. NOSE: Clear with pink turbinates. THROAT: No erythema or exudates. NECK: No masses, no JVD. CHEST: No chest wall deformity. LUNGS: Equal air entry with bilateral scattered rhonchi right greater than left. CVS: S1 and S2 normal with no audible murmur, regular rhythm. ABDOMEN: PEG tube exit site clean and dry. No hepatosplenomegaly, normal bowel sounds, no guarding or rigidity. SPINE: No scoliosis or deformity SKIN: No rashes CENTRAL NERVOUS SYSTEM: No focal deficits, tone is normal in all 4 extremities. EXTREMITIES: There is no peripheral edema. No clubbing, no cyanosis. Peripheral pulses are intact. - Labs CBC & Chem 7: 01/07/25 04:20 01/07/25 04:20 Labs: Abnormal Lab Results - Last 24 Hours (Table) 01/08/25 01/08/25 01/09/25 Range/Units 17:11 20:21 07:10 POC Glucose (mg/dL) 282 H 244 H 134 H (70-110) mg/dL Assessment and Plan Assessment: Acute hypoxic respiratory failure secondary to an acute pneumonia. Possible aspiration versus post obstructive versus community-acquired. Pulmonary embolism ruled out. Viral screen negative for influenza A/B, RSV, COVID. Sputum culture reveals no growth. Procalcitonin was negative. Bronchoscopy with BAL today Stage IV squamous cell carcinoma of the tongue initially diagnosed in July 2024. Status post chemo/radiation. PET scan from November 07, 2024 revealed mixed response to therapy with improvement in ulcerated tongue base FDG activity and bilateral lymph nodes however there was development of a right perihilar FDG avid pulmonary nodule. Bronchoscopy with biopsy November 27, 2024 of the lung lesion also positive for squamous cell carcinoma Chronic dysphagia post radiation therapy, has a PEG tube in place Chronic and ongoing tobacco dependence Diabetes mellitus, type II Hypertension Hyperlipidemia Previous history of alcoholism History of marijuana use History of PE/DVT, anticoagulated with Eliquis Plan: The patient was seen and evaluated Labs and medications reviewed C. difficile screen negative Continued on Zosyn Heparin for DVT prophylaxis Continue DuoNeb inhalations Continue a prednisone taper Educated regarding smoking cessation He has been slow to progress Will plan for bronchoscopy with BAL today I have personally seen and examined the patient, performed the documentation and the assessment and plan as written. Number of minutes spent on the visit: 10 Dictation was produced using [employer] dictation software. Please excuse any grammatical, word or spelling errors.
[2025-01-09 12:47] LABS: Glucose,Whole Blood 126 mg/dL (70-110)
[2025-01-09 13:35] VITALS: BMI 18.1
[2025-01-09 17:26] LABS: Glucose,Whole Blood 318 mg/dL (70-110)
--- NOTE | 2025-01-09 19:26 | PCN ---
PROCEDURE NOTE PROCEDURES PERFORMED: Bronchoscopy, bronchoalveolar lavage of the right middle lobe, right lower lobe, and random bronchial washing of the right lung. PREOPERATIVE DIAGNOSES: Right lower lobe pneumonia, postobstructive pneumonitis with excessive purulent secretions, unable to clear. POSTOPERATIVE DIAGNOSES: Right lower lobe pneumonia, postobstructive pneumonitis with excessive purulent secretions, unable to clear. ANESTHESIA USED: IV conscious sedation. PROCEDURE IN DETAIL: The patient was prepared according to the bronchoscopy protocol. Brought into the bronchoscopy suite, placed in a supine position, O2 was applied via Ventimask and a bite block was placed. We monitored his O2 saturation continuously. Blood pressure was intermittently monitored. The cardiac rhythm was continuously monitored. After adequate IV conscious sedation, the bronchoscope was inserted through the bite block down to the area of the vocal cords. There was significant excessive amount of purulent secretions around the vocal cords and epiglottis, I was able to clear the secretions after a few times going back in and out until I cleared my channel. I was able to clear the secretions around the vocal cords. Then, lidocaine was applied over the vocal cords and the bronchoscope was advanced down to the trachea. As soon as we entered the trachea, there was evidence of thick purulent secretions on the posterior wall of the trachea, and there was a tumor protruding from the anterior end of the trachea in the mid aspect of the trachea, which is highly suspicious for carcinoma. Then, secretions were suctioned out of the trachea, I was able to reach the right upper lobe, which looked to be infected. However, the right lower lobe bronchus was occluded with tumor suspicious also for carcinoma, and subtotally occluding the right lower lobe. It sounds that it compressing the right middle lobe. Secretions were suctioned out of the right middle lobe, right lower lobe. Lavage was performed, and the secretions were all cleared from the area of the right lower lobe, trachea, and right middle lobe as well as the right upper lobe. Examination of the left side showed no evidence of any significant abnormalities except for friable mucosa, but there was no evidence of purulent secretions on the left side, and no endobronchial tumors on the left side. Procedure was well tolerated, fluid was sent for different diagnostic studies, and no complications. MMODL / IJN: [id number] /
[2025-01-09 20:30] LABS: Glucose,Whole Blood 489 mg/dL (70-110)
[2025-01-09 20:34] LABS: Glucose,Whole Blood 477 mg/dL (70-110)
[2025-01-09 20:38] LABS: Appearance,BF Turbid (Clear); RBC, Body Fluid 53000 /UL (0-2000)
[2025-01-09] MEDS ORDERED: LOPERAMIDE 2 MG CAP PO PRN (20:38)
[2025-01-09] MEDS: INSULIN GLARGINE (LANTUS) 100 UNIT/ML SYR SQ SCH (21:22)
[2025-01-09] MEDS: CHOLESTYRAMINE (WITH SUGAR) 4 GM PACKET PO SCH (21:23)
[2025-01-09 21:45] LABS: Basophils # (A) 0.01 10*3/uL (0.00-0.10); Basophils % (A) 0.1 %; HCT 29.9 % (39.6-50.0); HGB 9.6 g/dL (13.0-17.0); Lymphocytes # (A) 0.11 10*3/uL (0.90-5.00); Lymphocytes % (A) 1.1 %; MCH 31.4 pg (27.0-32.0); MCHC 32.1 g/dL (32.0-37.0); MCV 97.7 fL (80.0-97.0); Mean Platelet Volume 9.7 fL (9.5-12.2); Monocytes # (A) 0.22 10*3/uL (0.20-1.00); Monocytes % (A) 2.2 %; Neutrophils # (A) 9.79 10*3/uL (1.80-7.70); Neutrophils % (A) 96.2 %; Platelet Count 227 10*3/uL (140-440); RBC 3.06 10*6/uL (4.40-5.60); RDW 13.8 % (11.5-14.5); WBC 10.17 10*3/uL (4.50-10.00)
[2025-01-09 22:05] LABS: Glucose 470 mg/dL (74-99); Potassium 4.5 mmol/L (3.5-5.1); Sodium 131 mmol/L (137-145)
[2025-01-09 22:06] LABS: African American GFR (CKD) >90 (>60 ml/min/1.73 sqM); Anion Gap 10 mmol/L; Blood Urea Nitrogen 21 mg/dL (9-20); Calcium 8.8 mg/dL (8.4-10.2); Carbon Dioxide 30 mmol/L (22-30); Chloride 91 mmol/L (98-107); Non-African American GFR(CKD) >90 (>60 ml/min/1.73 sqM)
--- NOTE | 2025-01-10 03:07 | P.PN ---
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 Because of this he has dysarthria and dysphagia. He is s/p PEG tube placement He is diabetic on Lantus. Presents because of shortness of breath. Patient also with some cough and what phlegm. No significant chest pain Complains from constipation. No urinary complaints. No headache or dizziness He is barely able to walk currently. At home he walks mainly across the house He is afebrile hemodynamically stable he is 90s percent saturation on 3 L oxygen via nasal cannula Labs showed leukocytosis 12.9 hemoglobin 11. Glucose more than 200 rest of labs reviewed look stable. Influenza and COVID were negative D-dimer was elevated 0.9 CTA of the chest was negative for PE but showing scattered patchy airspace opacity concerning for pneumonia. Also also he has left lower lobe pulmonary nodule with spiculated margins and central cavity which could be related to his history of cancer EKG showing sinus tachycardia at [address]-T changes 01/06 Patient sitting up at bed Still have some dyspnea while at rest still feels generally weak. Pulse oximetry showing increased saturation to 95% while he is on 3 L oxygen via nasal cannula. As at home he was not on oxygen He looks tired WBC is elevated 12.7, hemoglobin dropped 11 down to 9.3 Glucose is better but still more than 200 He remains on Zosyn for obstructive pneumonia and he might need bronchoscopy if no improvement in 1 to 2 days per pulmonary's team 01/07 Patient states that his dyspnea is improving slowly and gradually, he thinks is improved by 10 to 15% since he came into the hospital Still has bilateral crepitation with some coughing Patient would like to see Dr. Leigh Hemoglobin is slightly lower at 8.9 compared to 9.3 yesterday. Leukocytosis is persistent around 12 while he is on steroids Glucose is better controlled Continues on Zosyn but today switched his IV Solu-Medrol and to prednisone 40 mg. 01/08 Patient still feels short of breath, no much improvement Possible bronchoscopy tomorrow Continue with Zosyn and prednisone 01/09 With no much improvement in patient's symptoms he is going for bronchoscopy with pulmonary team and bronchoalveolar lavage No chest pain No abdominal pain or vomiting He remains on steroids and Zosyn Objective - Vital Signs Vital signs: Vital Signs Temp 97.2 F L 01/09/25 13:34 Pulse 78 01/09/25 13:34 Resp 17 01/09/25 13:34 BP 104/70 01/09/25 13:34 Pulse Ox 92 L 01/09/25 13:34 FiO2 Intake & Output 01/08/25 01/09/25 01/09/25 18:59 06:59 18:59 Intake Total 300 Balance 300 Weight 60.917 kg 60.781 kg 60.781 kg Intake: IV 300 Other: Voiding Method Toilet Urinal Bedside Commode Urinal # Voids 3 2 # Bowel Movements 2 4 - Exam GENERAL: The patient is alert and oriented x3, not in any acute distress. Well developed, well nourished. -HEENT: Pupils are round and equally reacting to light. EOMI. No scleral icterus. No conjunctival pallor. Normocephalic, atraumatic. No pharyngeal erythema. No thyromegaly. Dysarthric speech CARDIOVASCULAR: S1 and S2 present. No murmurs, rubs, or gallops. -PULMONARY: Chest is clear to auscultation, no wheezing , bilateral crepitation with tachypnea rackles. ABDOMEN: Soft, nontender, nondistended, normoactive bowel sounds. No palpable organomegaly. MUSCULOSKELETAL: No joint swelling or deformity. EXTREMITIES: No cyanosis, clubbing, or pedal edema. NEUROLOGICAL: Gross neurological examination did not reveal any focal deficits. SKIN: No rashes. no petechiae. - Labs CBC & Chem 7: 01/09/25 21:34 01/09/25 21:34 Labs: Abnormal Lab Results - Last 24 Hours (Table) 01/08/25 01/08/25 01/09/25 Range/Units 17:11 20:21 07:10 POC Glucose (mg/dL) 282 H 244 H 134 H (70-110) mg/dL 01/09/25 Range/Units 12:45 POC Glucose (mg/dL) 126 H (70-110) mg/dL Assessment and Plan Assessment: Acute COPD exacerbation Postobstructive pneumonia Acute on chronic anemia 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 Continue same treatment. Continue with symptomatic treatment. Resume home medication. Monitor labs and vitals. DVT and GI prophylaxis. Further recommendations as per clinical course of the patient DVT prophylaxis: Subcutaneous heparin GI Prophylaxis: Protonix PT/OT: Pending Prognosis is guarded
[2025-01-10 07:02] LABS: Glucose,Whole Blood 245 mg/dL (70-110)
[2025-01-10] MEDS: INSULIN LISPRO (HumaLOG) 100 UNIT/ML 10 mL VL SQ SCH ×2 (08:15→20:05)
[2025-01-10 12:03] LABS: Glucose,Whole Blood 344 mg/dL (70-110)
--- NOTE | 2025-01-10 12:22 | P.PN ---
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 He did receive a PEG tube as well. PET scan from November 08, 2024 revealed mixed response to therapy with improvement in ulcerated tongue base activity and bilateral lymph nodes however there is development of a right perihilar nodule consistent with metastasis. On November 27, 2024 he did undergo bronchoscopy with biopsies that were positive for squamous cell carcinoma, consistent with probable metastasis from head and neck primary. He presented here to the emergency room yesterday with complaints of increasing shortness of breath, cough and congestion. Chest x-ray revealed no acute cardiopulmonary process. CT angiogram revealed no evidence of pulmonary embolism. There is scattered patchy airspace opacities most pronounced on the right concerning for pneumonia. Left lower lobe pulmonary nodule with spiculated borders with a single focus of cavitation possibly secondary to metastasis. White count 12.4. Hemoglobin 11.0. Platelets 342. D-dimer 0.90. Sodium 137. Potassium 4.8. Bicarb 29. BUN 26. Creatinine 0.60. Glucose 221. Viral screen negative for influenza A/B, COVID, RSV. He is seen today in consultation on the regular medical floor. He is currently resting in bed. Awake and alert in no acute distress. Maintaining O2 saturations in the 90s on 3 L/min per nasal cannula. He is afebrile. Hemodynamically stable. The patient is seen today January 06, 2025 in follow-up on the regular medical floor. He is currently sitting up at the bedside. Awake and alert in no acute distress. He remains short of breath with minimal activity. Continues with a loose productive cough. Blood and sputum cultures pending. White count 12.7. Hemoglobin 9.3. Platelets 281. Sodium 138. Potassium 4.4. Bicarb 29. BUN 33. Creatinine 0.6. Glucose 246. Procalcitonin negative at 0.20. He remains on Zosyn. Continued on DuoNeb and elations. Heparin for DVT prophylaxis. Remains on IV Solu-Medrol. Receiving TwoCal HN boluses 3 times daily for nutritional support. The patient is seen today January 07, 2025 in follow-up on the regular medical floor. He is resting in bed. Awake and alert in no acute distress. Denies any worsening shortness of breath, cough or congestion. He is maintaining good O2 saturations in the 90s on 3 L/min per nasal cannula. He has been afebrile. Hemodynamically stable. Sputum culture revealed no growth. Blood culture revealed no growth. White count 12.3. Hemoglobin 8.9. Platelets 265. Sodium 135. Potassium 4.6. Bicarb 27. BUN 31. Creatinine 0.5. Glucose 230. He remains on heparin for DVT prophylaxis. Continued on DuoNeb inhalations, Solu- Medrol. Remains on Zosyn. The patient is seen today January 08, 2025 in follow-up on the regular medical floor. He is resting in bed. Awake and alert in no acute distress. He continues with a loose productive cough of greenish-brown sputum. Feeling a bit better but he has been slow to progress. He is maintaining good O2 saturations in the 90s on room air. Sputum culture revealed no growth. Blood culture revealed no growth. Blood glucose 91. He remains on DuoNeb and elations. Remains on Zosyn. Remains on prednisone taper. Heparin for DVT prophylaxis. The patient is seen today January 09, 2025 in follow-up on the regular medical floor. He is awake and alert in no acute distress. Resting comfortably in bed. Maintaining good O2 saturations in the 90s on still with a loose congested cough. Still with lots of phlegm production. Plan is for bronchoscopy today. He is continued on DuoNeb inhalations. Remains on Zosyn. Heparin for DVT prophylaxis. Remains on a prednisone taper. Stool for occult blood positive. Glucose 134. C. difficile screen negative. The patient is seen today January 10, 2025 in follow-up on the regular medical floor. He is sitting up in bed. Awake and alert in no acute distress. Maintaining O2 saturations in the 90s on room air. He is breathing better today compared to yesterday. He did undergo bronchoscopy with BAL with a significant amount of retained secretions removed. Cultures and cytology pending. Glucose 245. He remains on DuoNeb inhalations. Continued on Zosyn. Continued on a prednisone taper. Heparin for DVT prophylaxis. [place] on TwoCal HN bolus tube feedings via his PEG tube. He receives 475 mL 3 times a day with 200 mL of free water boluses. Objective - Vital Signs Vital signs: Vital Signs Temp 98.0 F 01/10/25 07:03 Pulse 81 01/10/25 12:13 Resp 16 01/10/25 07:03 BP 134/79 01/10/25 07:03 Pulse Ox 97 01/10/25 08:44 FiO2 Intake & Output 01/09/25 01/10/25 01/10/25 18:59 06:59 18:59 Intake Total 300 Balance 300 Weight 60.781 kg 61 kg Intake: IV 300 Other: Voiding Method Bedside Commode Bedside Commode Urinal Urinal - Exam GENERAL EXAM: Alert, frail, pleasant 64-year-old male, resting in bed, on room air oxygen, in no apparent distress. HEAD: Normocephalic. EYES: Normal reaction of pupils, equal size. NOSE: Clear with pink turbinates. THROAT: No erythema or exudates. NECK: No masses, no JVD. CHEST: No chest wall deformity. LUNGS: Equal air entry with bilateral scattered rhonchi right greater than left. CVS: S1 and S2 normal with no audible murmur, regular rhythm. ABDOMEN: PEG tube exit site clean and dry. No hepatosplenomegaly, normal bowel sounds, no guarding or rigidity. SPINE: No scoliosis or deformity SKIN: No rashes CENTRAL NERVOUS SYSTEM: No focal deficits, tone is normal in all 4 extremities. EXTREMITIES: There is no peripheral edema. No clubbing, no cyanosis. Peripheral pulses are intact. - Labs CBC & Chem 7: 01/09/25 21:34 01/09/25 21:34 Labs: Abnormal Lab Results - Last 24 Hours (Table) 01/09/25 01/09/25 01/09/25 Range/Units 12:19 12:45 17:24 WBC (4.50-10.00) 10*3/uL RBC (4.40-5.60) 10*6/uL Hgb (13.0-17.0) g/dL Hct (39.6-50.0) % MCV (80.0-97.0) fL Neutrophils # (1.80-7.70) 10*3/uL Lymphocytes # (0.90-5.00) 10*3/uL Eosinophils # (0.04-0.35) 10*3/uL Sodium (137-145) mmol/L Chloride (98-107) mmol/L BUN (9-20) mg/dL Creatinine (0.66-1.25) mg/dL Glucose (74-99) mg/dL POC Glucose (mg/dL) 126 H 318 H (70-110) mg/dL Fluid Appearance Turbid A (Clear) 01/09/25 01/09/25 01/09/25 Range/Units 20:29 20:31 21:34 WBC 10.17 H (4.50-10.00) 10*3/uL RBC 3.06 L (4.40-5.60) 10*6/uL Hgb 9.6 L (13.0-17.0) g/dL Hct 29.9 L (39.6-50.0) % MCV 97.7 H (80.0-97.0) fL Neutrophils # 9.79 H (1.80-7.70) 10*3/uL Lymphocytes # 0.11 L (0.90-5.00) 10*3/uL Eosinophils # 0.00 L (0.04-0.35) 10*3/uL Sodium (137-145) mmol/L Chloride (98-107) mmol/L BUN (9-20) mg/dL Creatinine (0.66-1.25) mg/dL Glucose (74-99) mg/dL POC Glucose (mg/dL) 489 H 477 H (70-110) mg/dL Fluid Appearance (Clear) 01/09/25 01/10/25 01/10/25 Range/Units 21:34 07:01 12:02 WBC (4.50-10.00) 10*3/uL RBC (4.40-5.60) 10*6/uL Hgb (13.0-17.0) g/dL Hct (39.6-50.0) % MCV (80.0-97.0) fL Neutrophils # (1.80-7.70) 10*3/uL Lymphocytes # (0.90-5.00) 10*3/uL Eosinophils # (0.04-0.35) 10*3/uL Sodium 131 L (137-145) mmol/L Chloride 91 L (98-107) mmol/L BUN 21 H (9-20) mg/dL Creatinine 0.47 L (0.66-1.25) mg/dL Glucose 470 H (74-99) mg/dL POC Glucose (mg/dL) 245 H 344 H (70-110) mg/dL Fluid Appearance (Clear) Microbiology - Last 24 Hours (Table) 01/09/25 12:19 Gram Stain - Preliminary Bronchoalviolar Lavage - Right Bronchial Washings Culture - Preliminary 01/04/25 15:35 Blood Culture - Final Blood Assessment and Plan Assessment: Acute hypoxic respiratory failure secondary to an acute pneumonia. Possible aspiration versus post obstructive versus community-acquired. Pulmonary embolism ruled out. Viral screen negative for influenza A/B, RSV, COVID. Sputum culture reveals no growth. Procalcitonin was negative. Bronchoscopy with BAL formed January 09, 2025. A significant amount of thick copious secretions removed. Currently stable and on room air oxygen Stage IV squamous cell carcinoma of the tongue initially diagnosed in July 2024. Status post chemo/radiation. PET scan from November 07, 2024 revealed mixed response to therapy with improvement in ulcerated tongue base FDG activity and bilateral lymph nodes however there was development of a right perihilar FDG avid pulmonary nodule. Bronchoscopy with biopsy November 27, 2024 of the lung lesion also positive for squamous cell carcinoma Chronic dysphagia post radiation therapy, has a PEG tube in place Chronic and ongoing tobacco dependence Diabetes mellitus, type II Hypertension Hyperlipidemia Previous history of alcoholism History of marijuana use History of PE/DVT, anticoagulated with Eliquis Plan: The patient was seen and evaluated Labs and medications reviewed Continued on Zosyn Heparin for DVT prophylaxis Continue DuoNeb inhalations Continue a prednisone taper Educated regarding smoking cessation Continues on TwoCal HN tube feedings And is for home with home care at discharge I have personally seen and examined the patient, performed the documentation and the assessment and plan as written. Number of minutes spent on the visit: 10 Dictation was produced using [employer] dictation software. Please excuse any gramm atical, word or spelling errors.
[2025-01-10 17:06] LABS: Glucose,Whole Blood 439 mg/dL (70-110)
[2025-01-10] MEDS: INSULIN LISPRO (HumaLOG) 100 UNIT/ML 10 mL VL SQ ONE (20:04)
[2025-01-11 00:13] LABS: Glucose,Whole Blood 263 mg/dL (70-110)
--- NOTE | 2025-01-11 00:22 | P.PN ---
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 Because of this he has dysarthria and dysphagia. He is s/p PEG tube placement He is diabetic on Lantus. Presents because of shortness of breath. Patient also with some cough and what phlegm. No significant chest pain Complains from constipation. No urinary complaints. No headache or dizziness He is barely able to walk currently. At home he walks mainly across the house He is afebrile hemodynamically stable he is 90s percent saturation on 3 L oxygen via nasal cannula Labs showed leukocytosis 12.9 hemoglobin 11. Glucose more than 200 rest of labs reviewed look stable. Influenza and COVID were negative D-dimer was elevated 0.9 CTA of the chest was negative for PE but showing scattered patchy airspace opacity concerning for pneumonia. Also also he has left lower lobe pulmonary nodule with spiculated margins and central cavity which could be related to his history of cancer EKG showing sinus tachycardia at [address]-T changes 01/06 Patient sitting up at bed Still have some dyspnea while at rest still feels generally weak. Pulse oximetry showing increased saturation to 95% while he is on 3 L oxygen via nasal cannula. As at home he was not on oxygen He looks tired WBC is elevated 12.7, hemoglobin dropped 11 down to 9.3 Glucose is better but still more than 200 He remains on Zosyn for obstructive pneumonia and he might need bronchoscopy if no improvement in 1 to 2 days per pulmonary's team 01/07 Patient states that his dyspnea is improving slowly and gradually, he thinks is improved by 10 to 15% since he came into the hospital Still has bilateral crepitation with some coughing Patient would like to see Dr. Leigh Hemoglobin is slightly lower at 8.9 compared to 9.3 yesterday. Leukocytosis is persistent around 12 while he is on steroids Glucose is better controlled Continues on Zosyn but today switched his IV Solu-Medrol and to prednisone 40 mg. 01/08 Patient still feels short of breath, no much improvement Possible bronchoscopy tomorrow Continue with Zosyn and prednisone 01/09 With no much improvement in patient's symptoms he is going for bronchoscopy with pulmonary team and bronchoalveolar lavage No chest pain No abdominal pain or vomiting He remains on steroids and Zosyn 5/3 Patient s/p bronchoscopy and bronchoalveolar lavage. todays is post procedure day #1 Breathing is better and exam showing better air entry BAL sputum culture are pending Remains on Zon Objective - Vital Signs Vital signs: Vital Signs Temp 98.2 F 01/10/25 12:49 Pulse 78 01/10/25 16:13 Resp 18 01/10/25 12:49 BP 106/62 01/10/25 12:49 Pulse Ox 95 01/10/25 12:49 FiO2 Intake & Output 01/10/25 01/10/25 01/11/25 06:59 18:59 06:59 Weight 61 kg Other: Voiding Method Bedside Commode Urinal # Voids 6 # Bowel Movements 1 - Exam GENERAL: The patient is alert and oriented x3, not in any acute distress. Well developed, well nourished. -HEENT: Pupils are round and equally reacting to light. EOMI. No scleral icterus. No conjunctival pallor. Normocephalic, atraumatic. No pharyngeal erythema. No thyromegaly. Dysarthric speech CARDIOVASCULAR: S1 and S2 present. No murmurs, rubs, or gallops. -PULMONARY: Chest is clear to auscultation, no wheezing , bilateral crepitation with tachypnea rackles. ABDOMEN: Soft, nontender, nondistended, normoactive bowel sounds. No palpable organomegaly. MUSCULOSKELETAL: No joint swelling or deformity. EXTREMITIES: No cyanosis, clubbing, or pedal edema. NEUROLOGICAL: Gross neurological examination did not reveal any focal deficits. SKIN: No rashes. no petechiae. - Labs CBC & Chem 7: 01/09/25 21:34 01/09/25 21:34 Labs: Abnormal Lab Results - Last 24 Hours (Table) 01/09/25 01/09/25 01/09/25 Range/Units 12:19 20:29 20:31 WBC (4.50-10.00) 10*3/uL RBC (4.40-5.60) 10*6/uL Hgb (13.0-17.0) g/dL Hct (39.6-50.0) % MCV (80.0-97.0) fL Neutrophils # (1.80-7.70) 10*3/uL Lymphocytes # (0.90-5.00) 10*3/uL Eosinophils # (0.04-0.35) 10*3/uL Sodium (137-145) mmol/L Chloride (98-107) mmol/L BUN (9-20) mg/dL Creatinine (0.66-1.25) mg/dL Glucose (74-99) mg/dL POC Glucose (mg/dL) 489 H 477 H (70-110) mg/dL Fluid Appearance Turbid A (Clear) 01/09/25 01/09/25 01/10/25 Range/Units 21:34 21:34 07:01 WBC 10.17 H (4.50-10.00) 10*3/uL RBC 3.06 L (4.40-5.60) 10*6/uL Hgb 9.6 L (13.0-17.0) g/dL Hct 29.9 L (39.6-50.0) % MCV 97.7 H (80.0-97.0) fL Neutrophils # 9.79 H (1.80-7.70) 10*3/uL Lymphocytes # 0.11 L (0.90-5.00) 10*3/uL Eosinophils # 0.00 L (0.04-0.35) 10*3/uL Sodium 131 L (137-145) mmol/L Chloride 91 L (98-107) mmol/L BUN 21 H (9-20) mg/dL Creatinine 0.47 L (0.66-1.25) mg/dL Glucose 470 H (74-99) mg/dL POC Glucose (mg/dL) 245 H (70-110) mg/dL Fluid Appearance (Clear) 01/10/25 01/10/25 Range/Units 12:02 17:05 WBC (4.50-10.00) 10*3/uL RBC (4.40-5.60) 10*6/uL Hgb (13.0-17.0) g/dL Hct (39.6-50.0) % MCV (80.0-97.0) fL Neutrophils # (1.80-7.70) 10*3/uL Lymphocytes # (0.90-5.00) 10*3/uL Eosinophils # (0.04-0.35) 10*3/uL Sodium (137-145) mmol/L Chloride (98-107) mmol/L BUN (9-20) mg/dL Creatinine (0.66-1.25) mg/dL Glucose (74-99) mg/dL POC Glucose (mg/dL) 344 H 439 H (70-110) mg/dL Fluid Appearance (Clear) Microbiology - Last 24 Hours (Table) 01/09/25 12:19 Acid Fast Bacilli Smear - Preliminary Bronchoalviolar Lavage - Right 01/09/25 12:19 Gram Stain - Preliminary Bronchoalviolar Lavage - Right Bronchial Washings Culture - Preliminary 01/04/25 15:35 Blood Culture - Final Blood Assessment and Plan Assessment: Acute COPD exacerbation Postobstructive pneumonia, status post bronchoscopy and bronchoalveolar lavage on 01/09 Acute on chronic anemia Malignant neoplasm of the oropharynx with laryngeal mass, squamous cell carcinoma of the tongue Dysarthria regarding his mouth tumor Dysphagia status post PEG tube Diabetes mellitus type 2 on Lantus Plan: Continue Zithromax continue Zosyn Follow-up BAL sputum culture results Continue with I steroids which are switched to oral dose of prednisone Continue with bronchodilator Pulmonary team consult Hematology/oncology team consult Close do anemia workup, monitor hemoglobin and other Protonix Continue with oxygen therapy Labs and medication were reviewed.. Continue same treatment. Continue with symptomatic treatment. Resume home medication. Monitor labs and vitals. DVT and GI prophylaxis. Further recommendations as per clinical course of the patient DVT prophylaxis: Subcutaneous heparin GI Prophylaxis: Protonix PT/OT: Pending Prognosis is guarded
[2025-01-11 06:06] LABS: Glucose,Whole Blood 85 mg/dL (70-110)
[2025-01-11 07:05] LABS: Glucose,Whole Blood 86 mg/dL (70-110)
[2025-01-11] MEDS: INSULIN GLARGINE (LANTUS) 100 UNIT/ML SYR SQ SCH (08:18)
[2025-01-11 12:05] LABS: Glucose,Whole Blood 272 mg/dL (70-110)
--- NOTE | 2025-01-11 12:46 | P.PN ---
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 He did receive a PEG tube as well. PET scan from November 08, 2024 revealed mixed response to therapy with improvement in ulcerated tongue base activity and bilateral lymph nodes however there is development of a right perihilar nodule consistent with metastasis. On November 27, 2024 he did undergo bronchoscopy with biopsies that were positive for squamous cell carcinoma, consistent with probable metastasis from head and neck primary. He presented here to the emergency room yesterday with complaints of increasing shortness of breath, cough and congestion. Chest x-ray revealed no acute cardiopulmonary process. CT angiogram revealed no evidence of pulmonary embolism. There is scattered patchy airspace opacities most pronounced on the right concerning for pneumonia. Left lower lobe pulmonary nodule with spiculated borders with a single focus of cavitation possibly secondary to metastasis. White count 12.4. Hemoglobin 11.0. Platelets 342. D-dimer 0.90. Sodium 137. Potassium 4.8. Bicarb 29. BUN 26. Creatinine 0.60. Glucose 221. Viral screen negative for influenza A/B, COVID, RSV. He is seen today in consultation on the regular medical floor. He is currently resting in bed. Awake and alert in no acute distress. Maintaining O2 saturations in the 90s on 3 L/min per nasal cannula. He is afebrile. Hemodynamically stable. The patient is seen today January 06, 2025 in follow-up on the regular medical floor. He is currently sitting up at the bedside. Awake and alert in no acute distress. He remains short of breath with minimal activity. Continues with a loose productive cough. Blood and sputum cultures pending. White count 12.7. Hemoglobin 9.3. Platelets 281. Sodium 138. Potassium 4.4. Bicarb 29. BUN 33. Creatinine 0.6. Glucose 246. Procalcitonin negative at 0.20. He remains on Zosyn. Continued on DuoNeb and elations. Heparin for DVT prophylaxis. Remains on IV Solu-Medrol. Receiving TwoCal HN boluses 3 times daily for nutritional support. The patient is seen today January 07, 2025 in follow-up on the regular medical floor. He is resting in bed. Awake and alert in no acute distress. Denies any worsening shortness of breath, cough or congestion. He is maintaining good O2 saturations in the 90s on 3 L/min per nasal cannula. He has been afebrile. Hemodynamically stable. Sputum culture revealed no growth. Blood culture revealed no growth. White count 12.3. Hemoglobin 8.9. Platelets 265. Sodium 135. Potassium 4.6. Bicarb 27. BUN 31. Creatinine 0.5. Glucose 230. He remains on heparin for DVT prophylaxis. Continued on DuoNeb inhalations, Solu- Medrol. Remains on Zosyn. The patient is seen today January 08, 2025 in follow-up on the regular medical floor. He is resting in bed. Awake and alert in no acute distress. He continues with a loose productive cough of greenish-brown sputum. Feeling a bit better but he has been slow to progress. He is maintaining good O2 saturations in the 90s on room air. Sputum culture revealed no growth. Blood culture revealed no growth. Blood glucose 91. He remains on DuoNeb and elations. Remains on Zosyn. Remains on prednisone taper. Heparin for DVT prophylaxis. The patient is seen today January 09, 2025 in follow-up on the regular medical floor. He is awake and alert in no acute distress. Resting comfortably in bed. Maintaining good O2 saturations in the 90s on still with a loose congested cough. Still with lots of phlegm production. Plan is for bronchoscopy today. He is continued on DuoNeb inhalations. Remains on Zosyn. Heparin for DVT prophylaxis. Remains on a prednisone taper. Stool for occult blood positive. Glucose 134. C. difficile screen negative. The patient is seen today January 10, 2025 in follow-up on the regular medical floor. He is sitting up in bed. Awake and alert in no acute distress. Maintaining O2 saturations in the 90s on room air. He is breathing better today compared to yesterday. He did undergo bronchoscopy with BAL with a significant amount of retained secretions removed. Cultures and cytology pending. Glucose 245. He remains on DuoNeb inhalations. Continued on Zosyn. Continued on a prednisone taper. Heparin for DVT prophylaxis. [place] on TwoCal HN bolus tube feedings via his PEG tube. He receives 475 mL 3 times a day with 200 mL of free water boluses. The patient is seen today January 11, 2025 in follow-up on the regular medical floor. He is resting comfortably in bed. Awake and alert in no acute distress. Maintaining O2 saturations in the 90s on room air oxygen. He has been afebrile. Hemodynamically stable. Bronchial wash cultures revealed no growth. Sputum culture revealed no growth. Blood culture revealed no growth. Glucose 86. He remains on Zosyn. Continued on bronchodilators. Continued on a prednisone taper. Heparin for DVT prophylaxis. Being nourished with TwoCal HN bolus tube feedings. Objective - Vital Signs Vital signs: Vital Signs Temp 97.9 F 01/11/25 07:06 Pulse 84 01/11/25 12:08 Resp 18 01/11/25 07:06 BP 127/87 01/11/25 07:06 Pulse Ox 97 01/11/25 07:43 FiO2 Intake & Output 01/10/25 01/11/25 01/11/25 18:59 06:59 18:59 Weight 58 kg Other: # Voids 6 # Bowel Movements 1 - Exam GENERAL EXAM: Alert, frail, 64-year-old male, on room air oxygen, in no apparent distress. HEAD: Normocephalic. EYES: Normal reaction of pupils, equal size. NOSE: Clear with pink turbinates. THROAT: No erythema or exudates. NECK: No masses, no JVD. CHEST: No chest wall deformity. LUNGS: Equal air entry with bilateral scattered rhonchi right greater than left. CVS: S1 and S2 normal with no audible murmur, regular rhythm. ABDOMEN: PEG tube exit site clean and dry. No hepatosplenomegaly, normal bowel sounds, no guarding or rigidity. SPINE: No scoliosis or deformity SKIN: No rashes CENTRAL NERVOUS SYSTEM: No focal deficits, tone is normal in all 4 extremities. EXTREMITIES: There is no peripheral edema. No clubbing, no cyanosis. Peripheral pulses are intact. - Labs CBC & Chem 7: 01/09/25 21:34 01/09/25 21:34 Labs: Abnormal Lab Results - Last 24 Hours (Table) 01/10/25 01/11/25 01/11/25 Range/Units 17:05 00:12 12:04 POC Glucose (mg/dL) 439 H 263 H 272 H (70-110) mg/dL Microbiology - Last 24 Hours (Table) 01/09/25 12:19 Gram Stain - Final Bronchoalviolar Lavage - Right Bronchial Washings Culture - Final 01/09/25 12:19 Acid Fast Bacilli Smear - Preliminary Bronchoalviolar Lavage - Right Assessment and Plan Assessment: Acute hypoxic respiratory failure secondary to an acute pneumonia. Possible aspiration versus post obstructive versus community-acquired. Pulmonary embolism ruled out. Viral screen negative for influenza A/B, RSV, COVID. Sputum culture reveals no growth. Procalcitonin was negative. Bronchoscopy with BAL formed January 09, 2025. A significant amount of thick copious secretions removed. Cultures revealed no growth. Currently stable and on room air oxygen Stage IV squamous cell carcinoma of the tongue initially diagnosed in July 2024. Status post chemo/radiation. PET scan from November 07, 2024 revealed mixed response to therapy with improvement in ulcerated tongue base FDG activity and bilateral lymph nodes however there was development of a right perihilar FDG avid pulmonary nodule. Bronchoscopy with biopsy November 27, 2024 of the lung lesion also positive for squamous cell carcinoma Chronic dysphagia post radiation therapy, has a PEG tube in place Chronic and ongoing tobacco dependence Diabetes mellitus, type II Hypertension Hyperlipidemia Previous history of alcoholism History of marijuana use History of PE/DVT, anticoagulated with Eliquis Plan: The patient was seen and evaluated Labs and medications reviewed Bronchial wash cultures revealed no growth Sputum culture revealed no growth Discontinue Zosyn Cleared for discharge Continue DuoNeb inhalations Continue a prednisone taper Educated regarding smoking cessation Continues on TwoCal HN tube feedings Plan is for home with home care I have personally seen and examined the patient, performed the documentation and the assessment and plan as written. Number of minutes spent on the visit: 10 Dictation was produced using [employer] software. Please excuse any grammatical, word or spelling errors.
[2025-01-11 17:03] LABS: Glucose,Whole Blood 334 mg/dL (70-110)
[2025-01-11 20:25] LABS: Glucose,Whole Blood 268 mg/dL (70-110)
--- NOTE | 2025-01-11 23:49 | P.PN ---
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 Because of this he has dysarthria and dysphagia. He is s/p PEG tube placement He is diabetic on Lantus. Presents because of shortness of breath. Patient also with some cough and what phlegm. No significant chest pain Complains from constipation. No urinary complaints. No headache or dizziness He is barely able to walk currently. At home he walks mainly across the house He is afebrile hemodynamically stable he is 90s percent saturation on 3 L oxygen via nasal cannula Labs showed leukocytosis 12.9 hemoglobin 11. Glucose more than 200 rest of labs reviewed look stable. Influenza and COVID were negative D-dimer was elevated 0.9 CTA of the chest was negative for PE but showing scattered patchy airspace opacity concerning for pneumonia. Also also he has left lower lobe pulmonary nodule with spiculated margins and central cavity which could be related to his history of cancer EKG showing sinus tachycardia at [address]-T changes 01/06 Patient sitting up at bed Still have some dyspnea while at rest still feels generally weak. Pulse oximetry showing increased saturation to 95% while he is on 3 L oxygen via nasal cannula. As at home he was not on oxygen He looks tired WBC is elevated 12.7, hemoglobin dropped 11 down to 9.3 Glucose is better but still more than 200 He remains on Zosyn for obstructive pneumonia and he might need bronchoscopy if no improvement in 1 to 2 days per pulmonary's team 01/07 Patient states that his dyspnea is improving slowly and gradually, he thinks is improved by 10 to 15% since he came into the hospital Still has bilateral crepitation with some coughing Patient would like to see Dr. Leigh Hemoglobin is slightly lower at 8.9 compared to 9.3 yesterday. Leukocytosis is persistent around 12 while he is on steroids Glucose is better controlled Continues on Zosyn but today switched his IV Solu-Medrol and to prednisone 40 mg. 01/08 Patient still feels short of breath, no much improvement Possible bronchoscopy tomorrow Continue with Zosyn and prednisone 01/09 With no much improvement in patient's symptoms he is going for bronchoscopy with pulmonary team and bronchoalveolar lavage No chest pain No abdominal pain or vomiting He remains on steroids and Zosyn 5/3 Patient s/p bronchoscopy and bronchoalveolar lavage. todays is post procedure day #1 Breathing is better and exam showing better air entry BAL sputum culture are pending Remains on Zosyn 01/11 Patient underwent bronchoscopy 2 days ago He feels better by 50% Has better air entry on both sides on auscultation Pending culture results of the aspirate from bronchoscopy Remains on Zosyn Objective - Vital Signs Vital signs: Vital Signs Temp 97.4 F L 01/11/25 19:19 Pulse 72 01/11/25 20:07 Resp 16 01/11/25 20:00 BP 118/80 01/11/25 19:19 Pulse Ox 100 01/11/25 19:19 FiO2 Intake & Output 01/11/25 01/11/25 01/12/25 06:59 18:59 06:59 Weight 58 kg Other: Voiding Method Bedside Commode Urinal # Voids 6 0 # Bowel Movements 0 - Exam GENERAL: The patient is alert and oriented x3, not in any acute distress. Well developed, well nourished. -HEENT: Pupils are round and equally reacting to light. EOMI. No scleral icterus. No conjunctival pallor. Normocephalic, atraumatic. No pharyngeal erythema. No thyromegaly. Dysarthric speech CARDIOVASCULAR: S1 and S2 present. No murmurs, rubs, or gallops. -PULMONARY: Chest is clear to auscultation, no wheezing , bilateral crepitation with tachypnea rackles. ABDOMEN: Soft, nontender, nondistended, normoactive bowel sounds. No palpable organomegaly. MUSCULOSKELETAL: No joint swelling or deformity. EXTREMITIES: No cyanosis, clubbing, or pedal edema. NEUROLOGICAL: Gross neurological examination did not reveal any focal deficits. SKIN: No rashes. no petechiae. 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 Continue same treatment. Continue with symptomatic treatment. Resume home medication. Monitor labs and vitals. DVT and GI prophylaxis. Further recommendations as per clinical course of the patient DVT prophylaxis: Subcutaneous heparin GI Prophylaxis: Protonix PT/OT: Pending Prognosis is guarded
[2025-01-12] MEDS: ACETAMINOPHEN TAB 325 MG TAB PO PRN (03:31)
[2025-01-12 04:37] LABS: Glucose,Whole Blood 61 mg/dL (70-110)
[2025-01-12] MEDS: DEXTROSE 50% SYRINGE 50 ML IVP PRN (04:37)
[2025-01-12 04:57] LABS: Glucose,Whole Blood 121 mg/dL (70-110)
[2025-01-12 06:24] LABS: Glucose,Whole Blood 60 mg/dL (70-110)
[2025-01-12 07:32] LABS: Glucose,Whole Blood 107 mg/dL (70-110)
[2025-01-12 08:28] LABS: Glucose,Whole Blood 69 mg/dL (70-110)
[2025-01-12 08:49] LABS: Nucleated Cells, Body Fluid 9400 /UL
[2025-01-12 08:55] LABS: Glucose,Whole Blood 87 mg/dL (70-110)
[2025-01-12 12:18] LABS: Glucose,Whole Blood 259 mg/dL (70-110)
[2025-01-12 12:35] VITALS: BP 111/72; TEMP 98.4
--- NOTE | 2025-01-12 13:51 | P.PN ---
Subjective Progress Note Date: 01/12/25 This is a 64-year-old male patient with a known history of diabetes mellitus type 2, hypertension, hyperlipidemia, previous alcoholism, PE/DVT maintained on Eliquis, chronic and ongoing tobacco dependence. 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 He did receive a PEG tube as well. PET scan from November 08, 2024 revealed mixed response to therapy with improvement in ulcerated tongue base activity and bilateral lymph nodes however there is development of a right perihilar nodule consistent with metastasis. On November 27, 2024 he did undergo bronchoscopy with biopsies that were positive for squamous cell carcinoma, consistent with probable metastasis from head and neck primary. He presented here to the emergency room yesterday with complaints of increasing shortness of breath, cough and congestion. Chest x-ray revealed no acute cardiopulmonary process. CT angiogram revealed no evidence of pulmonary embolism. There is scattered patchy airspace opacities most pronounced on the right concerning for pneumonia. Left lower lobe pulmonary nodule with spiculated borders with a single focus of cavitation possibly secondary to metastasis. White count 12.4. Hemoglobin 11.0. Platelets 342. D-dimer 0.90. Sodium 137. Potassium 4.8. Bicarb 29. BUN 26. Creatinine 0.60. Glucose 221. Viral screen negative for influenza A/B, COVID, RSV. He is seen today in consultation on the regular medical floor. He is currently resting in bed. Awake and alert in no acute distress. Maintaining O2 saturations in the 90s on 3 L/min per nasal cannula. He is afebrile. Hemodynamically stable. The patient is seen today January 06, 2025 in follow-up on the regular medical floor. He is currently sitting up at the bedside. Awake and alert in no acute distress. He remains short of breath with minimal activity. Continues with a loose productive cough. Blood and sputum cultures pending. White count 12.7. Hemoglobin 9.3. Platelets 281. Sodium 138. Potassium 4.4. Bicarb 29. BUN 33. Creatinine 0.6. Glucose 246. Procalcitonin negative at 0.20. He remains on Zosyn. Continued on DuoNeb and elations. Heparin for DVT prophylaxis. Remains on IV Solu-Medrol. Receiving TwoCal HN boluses 3 times daily for nutritional support. The patient is seen today January 07, 2025 in follow-up on the regular medical floor. He is resting in bed. Awake and alert in no acute distress. Denies any worsening shortness of breath, cough or congestion. He is maintaining good O2 saturations in the 90s on 3 L/min per nasal cannula. He has been afebrile. Hemodynamically stable. Sputum culture revealed no growth. Blood culture revealed no growth. White count 12.3. Hemoglobin 8.9. Platelets 265. Sodium 135. Potassium 4.6. Bicarb 27. BUN 31. Creatinine 0.5. Glucose 230. He remains on heparin for DVT prophylaxis. Continued on DuoNeb inhalations, Solu- Medrol. Remains on Zosyn. The patient is seen today January 08, 2025 in follow-up on the regular medical floor. He is resting in bed. Awake and alert in no acute distress. He continues with a loose productive cough of greenish-brown sputum. Feeling a bit better but he has been slow to progress. He is maintaining good O2 saturations in the 90s on room air. Sputum culture revealed no growth. Blood culture revealed no growth. Blood glucose 91. He remains on DuoNeb and elations. Remains on Zosyn. Remains on prednisone taper. Heparin for DVT prophylaxis. The patient is seen today January 09, 2025 in follow-up on the regular medical floor. He is awake and alert in no acute distress. Resting comfortably in bed. Maintaining good O2 saturations in the 90s on still with a loose congested cough. Still with lots of phlegm production. Plan is for bronchoscopy today. He is continued on DuoNeb inhalations. Remains on Zosyn. Heparin for DVT prophylaxis. Remains on a prednisone taper. Stool for occult blood positive. Glucose 134. C. difficile screen negative. The patient is seen today January 10, 2025 in follow-up on the regular medical floor. He is sitting up in bed. Awake and alert in no acute distress. Maintaining O2 saturations in the 90s on room air. He is breathing better today compared to yesterday. He did undergo bronchoscopy with BAL with a significant amount of retained secretions removed. Cultures and cytology pending. Glucose 245. He remains on DuoNeb inhalations. Continued on Zosyn. Continued on a prednisone taper. Heparin for DVT prophylaxis. [place] on TwoCal HN bolus tube feedings via his PEG tube. He receives 475 mL 3 times a day with 200 mL of free water boluses. The patient is seen today January 11, 2025 in follow-up on the regular medical floor. He is resting comfortably in bed. Awake and alert in no acute distress. Maintaining O2 saturations in the 90s on room air oxygen. He has been afebrile. Hemodynamically stable. Bronchial wash cultures revealed no growth. Sputum culture revealed no growth. Blood culture revealed no growth. Glucose 86. He remains on Zosyn. Continued on bronchodilators. Continued on a prednisone taper. Heparin for DVT prophylaxis. Being nourished with TwoCal HN bolus tube feedings. The patient is seen today January 12, 2025 in follow-up on the regular medical floor. He is awake and alert in no acute distress. Maintaining good O2 saturations in the 90s on room air oxygen. He denies any worsening shortness of breath, cough or congestion. Feeling back to his baseline. He remains on DuoNeb inhalations. Remains on a prednisone taper. Heparin for DVT prophylaxis. Blood culture revealed no growth. Sputum culture revealed no growth. Bronchial wash cultures revealed no growth. Glucose 87. Objective - Vital Signs Vital signs: Vital Signs Temp 98.4 F 01/12/25 12:35 Pulse 81 01/12/25 12:35 Resp 16 01/12/25 12:35 BP 111/72 01/12/25 12:35 Pulse Ox 100 01/12/25 12:35 FiO2 Intake & Output 01/11/25 01/12/25 01/12/25 18:59 06:59 18:59 Weight 61.5 kg Other: Voiding Method Bedside Commode Bedside Commode Urinal Urinal # Voids 6 0 # Bowel Movements 0 - Exam GENERAL EXAM: Alert, frail, 64-year-old male, sitting up in bed, on room air oxygen, comfortable in no apparent distress. HEAD: Normocephalic. EYES: Normal reaction of pupils, equal size. NOSE: Clear with pink turbinates. THROAT: No erythema or exudates. NECK: No masses, no JVD. CHEST: No chest wall deformity. LUNGS: Equal air entry with bilateral scattered rhonchi right greater than left. CVS: S1 and S2 normal with no audible murmur, regular rhythm. ABDOMEN: PEG tube exit site clean and dry. No hepatosplenomegaly, normal bowel sounds, no guarding or rigidity. SPINE: No scoliosis or deformity SKIN: No rashes CENTRAL NERVOUS SYSTEM: No focal deficits, tone is normal in all 4 extremities. EXTREMITIES: There is no peripheral edema. No clubbing, no cyanosis. Peripheral pulses are intact. - Labs CBC & Chem 7: 01/09/25 21:34 01/09/25 21:34 Labs: Abnormal Lab Results - Last 24 Hours (Table) 01/09/25 01/11/25 01/11/25 Range/Units 12:19 17:01 20:23 POC Glucose (mg/dL) 334 H 268 H (70-110) mg/dL Fluid RBC 89885 H (0-2000) /uL 01/12/25 01/12/25 01/12/25 Range/Units 04:34 04:54 06:21 POC Glucose (mg/dL) 61 L 121 H 60 L (70-110) mg/dL Fluid RBC (0-2000) /uL 01/12/25 01/12/25 Range/Units 08:26 12:17 POC Glucose (mg/dL) 69 L 259 H (70-110) mg/dL Fluid RBC (0-2000) /uL Microbiology - Last 24 Hours (Table) 01/09/25 12:19 Acid Fast Bacilli Smear - Preliminary Bronchoalviolar Lavage - Right 01/09/25 12:19 Gram Stain - Final Bronchoalviolar Lavage - Right Bronchial Washings Culture - Final Assessment and Plan Assessment: Acute hypoxic respiratory failure secondary to an acute pneumonia. Possible aspiration versus post obstructive versus community-acquired. Pulmonary embol ism ruled out. Viral screen negative for influenza A/B, RSV, COVID. Sputum culture reveals no growth. Procalcitonin was negative. Bronchoscopy with BAL formed January 09, 2025. A significant amount of thick copious secretions removed. Cultures revealed no growth. Currently stable and on room air oxygen Stage IV squamous cell carcinoma of the tongue initially diagnosed in July 2024. Status post chemo/radiation. PET scan from November 07, 2024 revealed mixed response to therapy with improvement in ulcerated tongue base FDG activity and bilateral lymph nodes however there was development of a right perihilar FDG avid pulmonary nodule. Bronchoscopy with biopsy November 27, 2024 of the lung lesion also positive for squamous cell carcinoma Chronic dysphagia post radiation therapy, has a PEG tube in place Chronic and ongoing tobacco dependence Diabetes mellitus, type II Hypertension Hyperlipidemia Previous history of alcoholism History of marijuana use History of PE/DVT, anticoagulated with Eliquis Plan: The patient was seen and evaluated Labs and medications reviewed Cleared for discharge Continue DuoNeb inhalations Continue a prednisone taper Educated regarding smoking cessation Continues on TwoCal HN tube feedings Plan is for home with home care I have personally seen and examined the patient, performed the documentation and the assessment and plan as written. Number of minutes spent on the visit: 10 Dictation was produced using [email or web address] dictation software. Please excuse any grammatical, word or spelling errors.
[2025-01-12 16:10] VITALS: RESP 18
[2025-01-12 16:16] VITALS: PULSE 88
== END 2025-01-12 18:31 | disposition home health service (06) | DRG 193 ==
LOC: EC 13:21 → 5NMEDONC 15:04
PROVIDERS: ADMIT Internal Medicine; ATTEND Internal Medicine
PROC: 0B918ZZ Drainage of Trachea, Via Natural or Artificial Opening Endoscopic (ICD-10-PCS; principal; 2025-01-09 12:00)
PROC: 0B9D8ZZ Drainage of Right Middle Lung Lobe, Via Natural or Artificial Opening Endoscopic (ICD-10-PCS; principal; 2025-01-09 12:00)
PROC: 0B9F8ZZ Drainage of Right Lower Lung Lobe, Via Natural or Artificial Opening Endoscopic (ICD-10-PCS; principal; 2025-01-09 12:00)
PROC: 0B9C8ZZ Drainage of Right Upper Lung Lobe, Via Natural or Artificial Opening Endoscopic (ICD-10-PCS; principal; 2025-01-09 12:00)
PROC: 0B9D8ZX Drainage of Right Middle Lung Lobe, Via Natural or Artificial Opening Endoscopic, Diagnostic (ICD-10-PCS; principal; 2025-01-09 12:00)
PROC: 0B9F8ZX Drainage of Right Lower Lung Lobe, Via Natural or Artificial Opening Endoscopic, Diagnostic (ICD-10-PCS; principal; 2025-01-09 12:00)
DX: J18.9 Pneumonia, unspecified organism (principal); J96.01 Acute respiratory failure with hypoxia; C78.01 Secondary malignant neoplasm of right lung; J44.0 Chronic obstructive pulmonary disease with (acute) lower respiratory infection; J44.1 Chronic obstructive pulmonary disease with (acute) exacerbation; R13.10 Dysphagia, unspecified; C02.9 Malignant neoplasm of tongue, unspecified; D64.9 Anemia, unspecified; F10.20 Alcohol dependence, uncomplicated; E11.42 Type 2 diabetes mellitus with diabetic polyneuropathy; I10 Essential (primary) hypertension; F32.A Depression, unspecified; I08.3 Combined rheumatic disorders of mitral, aortic and tricuspid valves; Z93.1 Gastrostomy status; E11.649 Type 2 diabetes mellitus with hypoglycemia without coma; Z79.4 Long term (current) use of insulin; J69.0 Pneumonitis due to inhalation of food and vomit; Z11.52 Encounter for screening for COVID-19; R47.1 Dysarthria and anarthria; E78.5 Hyperlipidemia, unspecified; F17.210 Nicotine dependence, cigarettes, uncomplicated; F90.9 Attention-deficit hyperactivity disorder, unspecified type; A63.0 Anogenital (venereal) warts; R00.0 Tachycardia, unspecified; I25.10 Atherosclerotic heart disease of native coronary artery without angina pectoris; I25.2 Old myocardial infarction; K59.00 Constipation, unspecified; R54 Age-related physical debility; Z79.01 Long term (current) use of anticoagulants; Z83.3 Family history of diabetes mellitus; Z85.818 Personal history of malignant neoplasm of other sites of lip, oral cavity, and pharynx; Z85.89 Personal history of malignant neoplasm of other organs and systems; Z86.711 Personal history of pulmonary embolism; Z86.718 Personal history of other venous thrombosis and embolism; Z87.442 Personal history of urinary calculi; Z92.21 Personal history of antineoplastic chemotherapy; Z92.3 Personal history of irradiation; Z88.8 Allergy status to other drugs, medicaments and biological substances
CPT/HCPCS: 31624; 31645; 36415; 71046; 71275; 80048; 80053; 82272; 82607; 82728; 82746; 83036; 83540; 83550; 83605; 83735; 84145; 85025; 85379; 85610; 85730; 87040; 87070; 87102; 87116; 87205; 87206; 87324; 87636; 88108; 88305; 89050; 93005; 94640; 94667; 94668; 94760; 96365; 96366; 96375; 96376; 99285